=== PATIENT | male | born 1950 | race Caucasian/White ===

== ENCOUNTER 2020-10-28 23:48 | Inpatient (IN) | payer MEDICARE, OTHER ==
[~2020-10-28] VITALS: Ht 175.3 cm; Wt 91.9 kg
[2020-10-29] MEDS ORDERED: MAG HYDROX/AL HYDROX/SIMETH 30 ML ORAL.SUSP PO PRN (00:30)
[2020-10-29] MEDS ORDERED: METHYL SALICYLATE/MENTHOL TOPICAL OINTMENT 57GM TUBE. TP PRN (00:30)
[2020-10-29] MEDS ORDERED: ACETAMINOPHEN 325 MG TABLET PO PRN (00:30)
[2020-10-29 00:32] VITALS: BP 146/98
[2020-10-29] MEDS ORDERED: ETOD400T PO (02:08)
[2020-10-29] MEDS ORDERED: SIMV20TA18 PO (02:08)
[2020-10-29] MEDS ORDERED: CARB15DR72 EACH EAR (02:08)
[2020-10-29] MEDS ORDERED: BUPR300T92 PO (02:08)
[2020-10-29] MEDS ORDERED: DIVA500T17 PO (02:08)
[2020-10-29] MEDS ORDERED: LISI-334 PO (02:08)
[2020-10-29] MEDS ORDERED: FINA5TAB4 PO (02:08)
[2020-10-29] MEDS ORDERED: OLAN15TA9 PO (02:08)
[2020-10-29] MEDS ORDERED: RISP3TAB56 PO (02:08)
[2020-10-29] MEDS ORDERED: TRAZ-125 PO (02:08)
[2020-10-29] MEDS ORDERED: NICO4GUM42 BC (02:08)
[2020-10-29] MEDS ORDERED: CARV6.2541 PO (02:08)
[2020-10-29] MEDS ORDERED: CALC-157 PO (02:08)
[2020-10-29] MEDS ORDERED: ASPI-889 PO (02:08)
[2020-10-29] MEDS ORDERED: FAMO20TA5 PO (02:08)
[2020-10-29] MEDS ORDERED: LEVO25TA4 PO (02:08)
[2020-10-29] MEDS ORDERED: TIZA4TAB2 PO (02:08)
[2020-10-29] MEDS ORDERED: LACT10SO PO (02:08)
[2020-10-29] MEDS ORDERED: OXYB10TA7 PO (02:08)
[2020-10-29] MEDS ORDERED: tiZANidine 4 MG TABLET. PO PRN (02:15)
[2020-10-29] MEDS: LEVOTHYROXINE 25 MCG TABLET. PO SCH (06:13)
[2020-10-29 06:37] VITALS: BP 119/83
[2020-10-29 07:08] LABS: BASO % 1 % (0-3); EOS # 0.2 x10^3/uL (0.0-0.7); EOS % 2 % (0-3); HEMATOCRIT 38.1 % (39.0-53.0); HEMOGLOBIN 12.8 g/dL (13.0-17.5); LYMPH # 3.6 x10^3/uL (1.0-4.8); LYMPH % 44 % (24-48); MEAN CORPUSCULAR HEMOGLOBIN 33 pg (25-35); MEAN CORPUSCULAR HGB CONC 34 g/dL (31-37); MEAN CORPUSCULAR VOLUME 99 fL (79-100); MONO # 0.9 x10^3/uL (0.0-1.1); MONO % 11 % (0-9); NEUT # 3.5 x10^3uL (1.8-7.7); NEUT % 43 % (31-73); PLATELET COUNT 123 x10^3/uL (140-400); RED BLOOD COUNT 3.84 x10^6/uL (4.30-5.70); RED CELL DISTRIBUTION WIDTH 14.9 % (11.5-14.5); WHITE BLOOD COUNT 8.1 x10^3/uL (4.0-11.0)
[2020-10-29 07:27] LABS: ALBUMIN/GLOBULIN RATIO 0.9 (1.0-1.7); CALCIUM 8.6 mg/dL (8.5-10.1); CREATININE 1.1 mg/dL (0.7-1.3); GFR 65.8; MAGNESIUM 1.9 mg/dL (1.8-2.4); POTASSIUM 3.5 mmol/L (3.5-5.1); TOTAL BILIRUBIN 0.4 mg/dL (0.2-1.0); TOTAL PROTEIN 6.2 g/dL (6.4-8.2)
[2020-10-29] MEDS: CARBAMIDE PEROXIDE 6.5% OTIC SOLUTION 15ML BOTTLE. AU SCH (09:00)
[2020-10-29] MEDS: ASPIRIN ENTERIC COATED 81 MG TABLET.DR. PO SCH (09:00)
[2020-10-29] MEDS: FAMOTIDINE 20 MG TABLET PO SCH ×2 (09:00→20:01)
[2020-10-29] MEDS ORDERED: NICOTINE 7MG PATCH. TD SCH (09:00)
[2020-10-29] MEDS: DICLOFENAC SODIUM 25 MG TABLET.DR PO SCH ×2 (09:00→20:08)
[2020-10-29] MEDS: LACTULOSE 20 GM/30 ML SOLUTION. PO SCH ×2 (09:47→20:00)
[2020-10-29] MEDS: CARVEDILOL 6.25 MG TABLET PO SCH ×2 (09:48→17:00)
[2020-10-29] MEDS: buPROPion XL 300 MG TAB.ER.24H. PO SCH (09:48)
[2020-10-29] MEDS: FINASTERIDE 5 MG TABLET. PO SCH (09:48)
[2020-10-29] MEDS: OXYBUTYNIN CHLORIDE 5 MG TABLET PO SCH ×2 (09:48→20:01)
[2020-10-29] MEDS: CALCIUM CARB/VIT D3 500/200 TABLET PO SCH (09:49)
[2020-10-29] MEDS: LISINOPRIL 20 MG TABLET PO SCH (09:50)
[2020-10-29 13:18] LABS: THYROID STIM HORMONE (TSH) 3.758 uIU/mL (0.358-3.740)
[2020-10-29 15:42] VITALS: BP 132/83
[2020-10-29] MEDS: NICOTINE POLACRILEX GUM 2 MG GUM. BC PRN (16:01)
--- NOTE | 2020-10-29 16:44 | TX PLAN ---
Interdisciplinary Tx Plan Admission Information Oct 28, 2020 at 23:49 Legal Status (on Admission): Voluntary DPOA/Guardian Name: Irving Posada-Pt is a self sign Contact Other Contact Name: Irving Posada-Self sign Other Contact Verified Code Status: Full Code Allergies: Coded Allergies: chlorpromazine (Verified Allergy, Unknown, 10/29/20) divalproex sodium (Verified Adverse Reaction, Unknown, weight gain, 10/29/20) lithium (Verified Adverse Reaction, Unknown, diarrhea , 10/29/20) risperidone (Verified Adverse Reaction, Unknown, tremors, 10/29/20) Diagnoses Primary Diagnosis: Schizoaffective Disorder, Acute Exacerbation Reasons for Admission: Sig. Change Sleep, Confusion/Disoriented, Other Problem in Patient's Words: Per pt,"I was told that I was showing some odd behaviors and had put things on my neighbors porch. I, also, don't sleep well." Additional Admission Comments: Per intake record pt was demonstrating behaviors of confusion. He took household items from his apartment and sat them on his neighbors front porch. Another concern was that he took two day worth of his medication. Also, per intake, pt has been showing a flat affect. [facility] pt seems to struggle every other year around September. Problems Active Problems: Sleep, medication regimen Inactive Problems: Confusion Pt Strengths/Limitations Ability for [place]: Good Cognitive Functioning/Ability: Good Financial Resources: Good Insight/Judgement: Fair Intellectual Ability: Good Physical Health: Fair Social Skills: Good Stability in Family: Poor Stability in School/Work: Good Verbal Skills: Good Discharge Criteria Discharge Criteria: Able meet basic life need, Able to meet health needs, Adequate arrangements @DC, Adequate self-care, Verbal commit med comply, Improved behavior Other Discharge Comments: Pt to follow up with [place] PCP, psychiatrist, and SW upon d/c. Preliminary Discharge Plan Preliminary DC Plan: Current Living Arrange. Special Precautions Special Precautions: Other Fall Risk: Moderate Initial D/C Plan Pt to follow-up with his PCP, psychiatrist, and social group worker through the [place] upon discharge. Identified Discharge Needs: None Currently Utilized Resources Currently Utilized Resources/P: PCP, Psychiatrist, and [phone] Identified Problems/Hx/Goals Objectives/Short-Term Goals Short Term Goals: Control abnormal behavior, Medication Stabilization, Monitor Med Effects, Promote Coping Skill Short Term Goals in Patient's: "To get help with sleep and adjust medications." Interventions/Frequency Staff Interventions/Frequency&: Psychiatry to assess pt three times per week for medication management. Nursing to assess behaviors, monitor medications, and complete 15 minute checks daily. Social work to see pt at least twice weekly to aid in return home. Activities to encourage pt to participate in group activities daily. 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 Education: Pt graduated high school from [employer]. Community Follow-up PCP, psychiatrist, and SW through [place] Treatment Plan Explained Patient/Make Up Operator had this treatment plan explained to him/her as indicated by the signature below and has been given the opportunity to ask questions and make suggestions: Date: Patient/Make Up Operator Signature: SMOOTH RASHEED Oct 29, 2020 16:44
[2020-10-29] MEDS: traZODone 100 MG TABLET. PO SCH (20:04)
[2020-10-29] MEDS: SIMVASTATIN 20 MG TABLET PO SCH (20:05)
[2020-10-29] MEDS: DIVALPROEX ER 500 MG TAB.ER.24H PO SCH (20:05)
[2020-10-29 20:09] LABS: THYROXINE 5.9 ug/dL (4.5-12.0)
--- NOTE | 2020-10-29 20:55 | PDOC ---
Exam Note: Zackary Note: Please also refer to the separate dictated note~for this date of service dictated separately.~Patient seen individually. Discussed the patient with Nursing staff reviewed the chart.~Reviewed interim history and current functioning. Reviewed vital signs,~Labs/ Radiology~and current medications noted below. Continue current treatment with the changes noted in the dictated addendum note Assessment: Vital Signs/I&O: Vital Signs Date Time Temp Pulse Resp B/P (MAP) Pulse Ox O2 Delivery O2 Flow Rate FiO2 10/29/20 17:00 72 132/83 10/29/20 15:42 97.8 18 96 Room Air Labs: Laboratory Tests Test 10/29/20 06:47 10/29/20 07:46 White Blood Count 8.1 x10^3/uL (4.0-11.0) Red Blood Count 3.84 x10^6/uL (4.30-5.70) L Hemoglobin 12.8 g/dL (13.0-17.5) L Hematocrit 38.1 % (39.0-53.0) L Mean Corpuscular Volume 99 fL (79-100) Mean Corpuscular Hemoglobin 33 pg (25-35) Mean Corpuscular Hemoglobin Concent 34 g/dL (31-37) Red Cell Distribution Width 14.9 % (11.5-14.5) H Platelet Count 123 x10^3/uL (140-400) L Neutrophils (%) (Auto) 43 % (31-73) Lymphocytes (%) (Auto) 44 % (24-48) Monocytes (%) (Auto) 11 % (0-9) H Eosinophils (%) (Auto) 2 % (0-3) Basophils (%) (Auto) 1 % (0-3) Neutrophils # (Auto) 3.5 x10^3uL (1.8-7.7) Lymphocytes # (Auto) 3.6 x10^3/uL (1.0-4.8) Monocytes # (Auto) 0.9 x10^3/uL (0.0-1.1) Eosinophils # (Auto) 0.2 x10^3/uL (0.0-0.7) Basophils # (Auto) 0.0 x10^3/uL (0.0-0.2) D-Dimer (Laura) 0.84 mg/L (0.00-0.50) H Sodium Level 142 mmol/L (136-145) Potassium Level 3.5 mmol/L (3.5-5.1) Chloride Level 106 mmol/L (98-107) Carbon Dioxide Level 29 mmol/L (21-32) Anion Gap 7 (6-14) Blood Urea Nitrogen 19 mg/dL (8-26) Creatinine 1.1 mg/dL (0.7-1.3) Estimated GFR (Cockcroft-Gault) 65.8 BUN/Creatinine Ratio 17 (6-20) Glucose Level 86 mg/dL (70-99) Calcium Level 8.6 mg/dL (8.5-10.1) Magnesium Level 1.9 mg/dL (1.8-2.4) Iron Level 46 ug/dL (65-175) L Total Iron Binding Capacity 225 ug/dL (250-450) L Iron Saturation 20 % (15-34) Total Bilirubin 0.4 mg/dL (0.2-1.0) Aspartate Amino Transferase (AST) 17 U/L (15-37) Alanine Aminotransferase (ALT) 18 U/L (16-63) Alkaline Phosphatase 40 U/L (46-116) L Total Protein 6.2 g/dL (6.4-8.2) L Albumin 3.0 g/dL (3.4-5.0) L Albumin/Globulin Ratio 0.9 (1.0-1.7) L Triglycerides Level 126 mg/dL (0-150) Cholesterol Level 152 mg/dL (0-200) LDL Cholesterol, Calculated 77 mg/dL (0-100) VLDL Cholesterol, Calculated 25 mg/dL (0-40) Non-HDL Cholesterol Calculated 102 mg/dL (0-129) HDL Cholesterol 50 mg/dL (40-60) Cholesterol/HDL Ratio 3.0 Thyroid Stimulating Hormone (TSH) 3.758 uIU/mL (0.358-3.740) Thyroxine (T4) 5.9 ug/dL (4.5-12.0) Total Triiodothyronine (TT3) 103 ng/dL (71-180) Glucose (Fingerstick) 104 mg/dL (70-99) H Current Medications: Meds: Current Medications Medications (Trade) Dose Ordered Sig/Andie Route PRN Reason Start Time Stop Time Status Last Admin Dose Admin Bupropion HCl (Wellbutrin Xl) 300 mg DAILY PO 10/29/20 09:00 10/29/20 09:48 Trazodone HCl (Desyrel) 300 mg HS PO 10/29/20 21:00 10/29/20 20:04 Olanzapine (ZyPREXA) 30 mg QHS PO 10/29/20 21:00 10/29/20 20:05 Risperidone (RisperDAL) 3 mg HS PO 10/29/20 21:00 10/29/20 20:04 Aspirin (Aspirin Enteric Coated) 81 mg DAILY PO 10/29/20 09:00 10/29/20 09:00 Calcium/Vitamin D (Oscal D 500mg/ 200uts) 1 tab DAILY PO 10/29/20 09:00 10/29/20 09:49 Carvedilol (Coreg) 6.25 mg BIDWMEALS PO 10/29/20 08:00 10/29/20 17:00 Famotidine (Pepcid) 20 mg BID PO 10/29/20 09:00 10/29/20 20:01 Finasteride (Proscar) 5 mg DAILY PO 10/29/20 09:00 10/29/20 09:48 Levothyroxine Sodium (Synthroid) 25 mcg DAILY06 PO 10/29/20 06:00 10/29/20 06:13 Lisinopril (Prinivil) 20 mg DAILY PO 10/29/20 09:00 10/29/20 09:50 Simvastatin (Zocor) 20 mg HS PO 10/29/20 21:00 10/29/20 20:05 Diclofenac Sodium (Voltaren) 75 mg BID PO 10/29/20 09:00 10/29/20 20:08 Lactulose (Lactulose) 20 gm BID PO 10/29/20 09:00 10/29/20 20:00 Nicotine Polacrilex (Nicorette Gum) 2 mg PRN Q1HR PRN BC SMOKING CESSATION 10/29/20 02:30 10/29/20 16:01 Oxybutynin Chloride (Ditropan) 5 mg BID PO 10/29/20 09:00 10/29/20 20:01 Divalproex Sodium (Depakote Er) 1,000 mg HS PO 10/29/20 21:00 12/31/20 20:05 I have reviewed the current psychotropics carefully including drug interactions. Risk benefit ratio favors no change other than as noted in my dictated progress note. Diagnosis: Problems: (1) Schizoaffective disorder, chronic condition with acute exacerbation CLAUDIA ZAVALA MD Oct 29, 2020 20:55
[2020-10-29] MEDS ORDERED: DIVALPROEX ER 500 MG TAB.ER.24H PO SCH (21:00)
[2020-10-29] MEDS ORDERED: OLANZapine 10 MG TABLET PO SCH (21:00)
[2020-10-29] MEDS ORDERED: risperiDONE 1 MG TABLET. PO SCH (21:00)
[2020-10-29 21:18] LABS: CLARITY,URINE CLEAR; COLOR,URINE YELLOW
[2020-10-29 21:29] LABS: GLUCOSE,URINE NEG (NEG)
[2020-10-29 21:32] LABS: BILIRUBIN,URINE LARGE (NEG)
[2020-10-29 21:33] LABS: BACTERIA,URINE 0 /HPF (0-FEW); NITRITE,URINE NEG (NEG); SQUAMOUS EPITHELIAL CELL,UR OCC /LPF; UROBILINOGEN,URINE 0.2 mg/dL (0.2 mg/dL)
[2020-10-29 21:34] LABS: AMORPHOUS SEDIMENT,UR PRESENT /HPF
[2020-10-29 23:10] LABS: HEMOGLOBIN A1C 5.5 % (4.8-5.6)
--- NOTE | 2020-10-30 00:08 | HP ---
ADMIT DATE: 10/29/2020 PSYCHIATRIC ADMISSION HISTORY AND EVALUATION This note covers elements not covered in my initial note on 10/29/2020. IDENTIFYING DATA: The patient is a 70-year-old male referred to us from the Emergency Room at [facility] after we were called directly by the ER physician and thereafter by the psychiatrist who evaluated the patient in the Emergency Room. The patient has a diagnosis of bipolar disorder versus schizoaffective disorder, bipolar type. He has been living at home by himself, getting more confused, paranoid, psychotic recently. Apparently took two days' worth of his medications altogether at one time. He was confused and was presented 3 hours early for his office appointment at the [facility]. Staff are concerned about his safety. He reportedly had odd behaviors and a flat affect. He reportedly took his household goods from his apartment and put them on his neighbor's front porch oblivious of what he was doing unsure why he did it and confused about the whole situation. Given the fact that he lives alone and has little psychosocial support in his living environment, safety was deemed to be a determining factor getting him to present to the Emergency Room and then referred to us for inpatient psychiatric stabilization. CHIEF COMPLAINT: "I am okay now. Yes, I would like my medications checked. I see the lady psychiatrist at the [facility] Dr. Tamayo. HISTORY OF PRESENT ILLNESS: The patient states he was first diagnosed with bipolar disorder at the age of 16. He has had periods of elation, racing thoughts, psychotic symptoms, alternating with being depressed. This has been compounded by significant psychoactive drug use in the past and he currently continues to use marijuana. He has had sleep and appetite changes. No active suicidal or homicidal ideation. He remains intermittently psychotic. PAST PSYCHIATRIC HISTORY: As above. The patient states he believes he was on Abilify in the past, but unable to remember details psychosocial and psychiatric medication history. MEDICAL HISTORY: Hyperlipidemia, chronic constipation, metatarsal pain, hypothyroidism, polyarthralgia, osteoarthritis, abnormal gait, frequent falls, hypogonadism, hypertension, diabetes mellitus, GERD, CHF, coronary artery disease, chronic renal impairment, acute renal failure, hypotension, tremor, BPH, COPD, hearing loss, tinnitus, history of occlusion cerebral artery, cataract, hyperammonemia, tobacco use, marijuana usage current. ACCU-CHEKS: Daily until A1c comes back, not on any insulin or meds. DIET: Diabetic, takes medications whole, ambulates up ad ken with walker. UA negative at the [facility]. CURRENT PSYCHOTROPICS: Wellbutrin 300 mg daily for smoking cessation, Depakote ER 1000 mg at bedtime, Zyprexa 30 mg at bedtime, Risperdal 3 mg at bedtime, trazodone 100 mg at bedtime, Zyprexa was initiated p.r.n. 2.5 mg q. 2 hours p.r.n. psychosis, agitation, max 10 mg in 24 hours. FAMILY HISTORY: Noncontributory. SOCIAL HISTORY: The patient lives alone, [facility] Substance use noted above. REVIEW OF SYSTEMS: No CV, , pulmonary, eye, ENT system symptoms on review. MENTAL STATUS EXAMINATION: Reasonably oriented. Speech coherent, abstraction fair, computation impaired, language function intact, attention span short. He is somewhat paranoid, but less so than at the time of initial admission. No active suicidal or homicidal ideation. LABORATORY DATA: Reviewed. IMPRESSION: Bipolar 1 disorder, mixed with psychotic features versus schizoaffective disorder, bipolar type; anxiety disorder, unspecified; past history of polysubstance abuse, current THC abuse, impulse control disorder. Rest diagnoses as above. PLAN: Admit to Geropsychiatry Unit at [facility]. I will see the patient daily individually from a psychiatric standpoint. Medical followup with Dr. Nair/Dr Salinas. We will get his past psychiatric records from the [facility]. Check a valproic acid level. Continue with current psychotropics. We will plan to simplify his atypical antipsychotics and avoid the use of two atypicals, olanzapine and Risperdal in combination. We will make further adjustments as clinically indicated. Estimated length of stay 10-12 days. DISPOSITION: Plans back home with outpatient followup at the [facility] when stable. CLAUDIA ZAVALA MD DR: JAC/emelia JOB#: [id number] / [id number]
--- NOTE | 2020-10-30 01:15 | CONS ---
DATE OF CONSULTATION: 10/29/2020 REASON FOR CONSULTATION: Medical management. HISTORY OF PRESENT ILLNESS: The patient is a 70-year-old male patient who apparently was evaluated at the [facility] Emergency Room and from there he was admitted to [facility] as the [place] photofinishing laboratory worker is concerned for patient's safety and odd behavior. He apparently seemed to be more confused, took household items from his apartment and sat them in neighbor's porch. There is also concern that he is not taking his medication correctly. He has a flat affect and therefore, he was admitted to [facility] for inpatient psychiatric stabilization as apparently has failed outside psychiatric intervention by his psychiatrist. PAST MEDICAL HISTORY: Significant for hypertension, hyperlipidemia, type 2 diabetes, gastroesophageal reflux disease, congestive heart failure, tinnitus and impaired hearing, chronic constipation, hypothyroidism, osteoarthritis. PAST SURGICAL HISTORY: Three hernia repairs and bilateral cataract extraction. FAMILY HISTORY: Noncontributory. SOCIAL HISTORY: [facility]. ALLERGIES: HE IS ALLERGIC TO CHLORPROMAZINE, DIVALPROEX SODIUM, LITHIUM AND RISPERIDONE. MEDICATIONS: He is currently on following medications: He is on tizanidine 2 mg 3 times a day as needed, nicotine gum 4 mg every hour as needed, simvastatin 20 mg at bedtime, carvedilol 6.25 mg twice a day with meals, lisinopril 20 mg daily, aspirin 81 mg once a day, etodolac 400 mg twice a day, divalproex sodium 500 mg extended release at bedtime. He is on Wellbutrin 300 mg extended release daily, trazodone 300 mg at bedtime, olanzapine 30 mg at bedtime, risperidone 3 mg at bedtime. He is on lactulose 15 mL, he takes 30 mL twice a day, calcium carbonate with vitamin D one tablet daily. He is on Carbamide peroxide 2 drops to both ears daily. He is on famotidine 20 mg twice a day, levothyroxine sodium 25 mcg daily, oxybutynin chloride 10 mg once a day, finasteride 5 mg daily. REVIEW OF SYSTEMS: As per history of present illness. PHYSICAL EXAMINATION: GENERAL: When I examined him this afternoon, he was sitting at the edge of bed, eating his supper comfortably, in no apparent distress. When I examined him, he looked well with no pallor, jaundice, cyanosis or thyromegaly. No jugular venous distention. No lower limb edema. VITAL SIGNS: His heart rate was 72, blood pressure was 132/83, temperature 97.8, respiratory rate was 18 and oxygen saturation was 96%. HEAD, EYES, EARS, NOSE AND THROAT: Showed normocephalic, atraumatic. NECK: Supple. HEART: Showed normal first and second heart sounds. No gallop, rub or murmur. CHEST: Clear to auscultation. No crepitation or rhonchi. ABDOMEN: Distended, soft, nontender. NEUROLOGIC: He is awake, alert, responding appropriately. All cranial nerves intact. EXTREMITIES: He moves extremities without difficulty, ambulates with a walker. LABORATORY DATA: Showed a white cell count of 8100, hemoglobin 12.8, hematocrit 38, MCV 99 and platelet count of 123,000 with normal manual differential. His chemistry showed a serum sodium 142, potassium 3.5, chloride 106, bicarbonate 29, anion gap of 7, BUN 19, creatinine 1.1, estimated GFR was 66 mL per minute. His glucose was 86, calcium was 8.6, magnesium was 1.9. Serum iron 46, TIBC was 225 and iron saturation was 20. Total bilirubin, AST and ALT are normal as well as alkaline phosphatase. Her total protein was 6.2, albumin 3. Serum triglycerides 126, total cholesterol 152, LDL was 77, VLDL was 25, HDL was 50 and the ratio was 3. TSH was 3.758. Her D-dimer was 0.84 mg/dL. ASSESSMENT AND PLAN: In summary, this is a 70-year-old male patient, a resident at [facility] who [facility] on account of concern by the [place] transition social worker about his safety and odd behavior and increased confusion, apparently took household items from his apartment and sat them on neighbor's porch concerned that he is not taking his medication correctly. He has flat affect, apparently and the plan is to basically evaluating his numerous psych medication apparently has failed outpatient psychiatric evaluation by his psychiatrist, Dr. Coley. Medically, he has numerous medical problems including hypertension, hyperlipidemia, type 2 diabetes mellitus, gastroesophageal reflux disease, hypertension and in bed and sensorineural deafness. All in all, medically he seems to be mostly stable. His vital signs are stable. His blood pressure is well controlled. I reviewed all his labs and he has a mild thrombocytopenia with platelet count of 123,000. His chemistry is mostly well within normal range except that her TSH is slightly elevated at 3.758, Synthroid 25 mcg and I will check a T3, T4, free T4 to make sure that his thyroid functions are normal. Other than that, he seems to be medically stable. Thank you, Dr. Harrison, for allowing me to participate in the care of this patient. CHARMAINE WATERS MD DR: JESUS MANUEL/emelia JOB#: [id number] / [id number]
[2020-10-30] MEDS: LEVOTHYROXINE 25 MCG TABLET. PO SCH (06:17)
[2020-10-30 06:29] VITALS: BP 148/88
[2020-10-30] MEDS: CALCIUM CARB/VIT D3 500/200 TABLET PO SCH (08:56)
[2020-10-30] MEDS: FINASTERIDE 5 MG TABLET. PO SCH (08:56)
[2020-10-30] MEDS: DICLOFENAC SODIUM 25 MG TABLET.DR PO SCH ×2 (08:56→20:03)
[2020-10-30] MEDS: ASPIRIN ENTERIC COATED 81 MG TABLET.DR. PO SCH (08:56)
[2020-10-30] MEDS: buPROPion XL 300 MG TAB.ER.24H. PO SCH (08:56)
[2020-10-30] MEDS: OXYBUTYNIN CHLORIDE 5 MG TABLET PO SCH ×2 (08:56→20:04)
[2020-10-30] MEDS: FAMOTIDINE 20 MG TABLET PO SCH ×2 (08:56→20:03)
[2020-10-30] MEDS: CARVEDILOL 6.25 MG TABLET PO SCH ×2 (08:56→17:46)
[2020-10-30] MEDS: LACTULOSE 20 GM/30 ML SOLUTION. PO SCH ×2 (08:57→20:02)
[2020-10-30] MEDS: LISINOPRIL 20 MG TABLET PO SCH (08:57)
[2020-10-30] MEDS: CARBAMIDE PEROXIDE 6.5% OTIC SOLUTION 15ML BOTTLE. AU SCH (09:00)
[2020-10-30 15:03] VITALS: BP 128/87
[2020-10-30] MEDS: OLANZapine 10 MG TABLET PO SCH (20:02)
[2020-10-30] MEDS: traZODone 100 MG TABLET. PO SCH (20:02)
[2020-10-30] MEDS: SIMVASTATIN 20 MG TABLET PO SCH (20:02)
[2020-10-30] MEDS: DIVALPROEX ER 500 MG TAB.ER.24H PO SCH (20:03)
[2020-10-30] MEDS: risperiDONE 1 MG TABLET. PO SCH (20:04)
--- NOTE | 2020-10-30 21:33 | PDOC ---
Exam Note: Zackary Note: This note is a late entry for 10/28/2020 covers elements not covered in my initial note. Please also refer to the separate dictated note~for this date of service dictated separately.~Patient seen individually. Discussed the patient with Nursing staff reviewed the chart.~Reviewed interim history and current funct ioning. Reviewed vital signs,~Labs/ Radiology~and current medications noted below. Continue current treatment with the changes noted in the dictated addendum note. Discussed the patient with Sheba Walker, on 2 different occasions and with Chloe DEAN, the nursing staff on a separate occasion. [facility] The patient has a long history of bipolar disorder versus schizoaffective disorder bipolar type. He lives alone on his own recently getting more psychotic, probably confused on his medications, have not taken two days of medications together by mistake. He has been having odd behaviors, has detailed on my intake evaluation and deemed dangerous to be at home needing his psychotropics assessed as an inpatient. The ER physician had called us and requesting inpatient psychiatric hospitalization and then patient was evaluated by the psychiatrist at the [facility] who called us as well recommending inpatient psychiatric stabilization. Assessment: Vital Signs/I&O: Vital Signs Date Time Temp Pulse Resp B/P (MAP) Pulse Ox O2 Delivery O2 Flow Rate FiO2 10/30/20 17:46 67 128/87 10/30/20 15:03 98.5 17 99 10/30/20 06:29 Room Air I & O 10/29/20 10/29/20 10/30/20 15:00 23:00 07:00 Intake Total 720 ml 100 ml Balance 720 ml 100 ml Labs: Laboratory Tests Test 10/30/20 06:59 10/30/20 07:46 Free Thyroxine 1.08 ng/dL (0.76-1.46) Glucose (Fingerstick) 105 mg/dL (70-99) H Current Medications: Meds: Laboratory Tests Test 10/30/20 06:59 10/30/20 07:46 Free Thyroxine 1.08 ng/dL Glucose (Fingerstick) 105 mg/dL Current Medications Medications (Trade) Dose Ordered Sig/Andie Route PRN Reason Start Time Stop Time Status Last Admin Dose Admin Acetaminophen (Tylenol) 650 mg PRN Q6HRS PRN PO MILD PAIN / TEMP > 100.3'F 10/29/20 00:30 Multi-Ingredient Ointment (Analgesic Tyler) 1 anabel PRN QID PRN TP MUSCLE PAIN 10/29/20 00:30 Al Hydroxide/Mg Hydroxide (Mylanta Plus Xs) 15 ml PRN AFTMEALHC PRN PO DYSPEPSIA 10/29/20 00:30 Magnesium Hydroxide (Milk Of Magnesia) 2,400 mg PRN QHS PRN PO CONSTIPATION 10/29/20 00:30 Nicotine (Nicoderm Cq 7mg Patch) 1 patch DAILY TD 10/29/20 09:00 10/29/20 10:16 DC Bupropion HCl (Wellbutrin Xl) 300 mg DAILY PO 10/29/20 09:00 10/30/20 08:56 Divalproex Sodium (Depakote Er) 500 mg HS PO 10/29/20 21:00 10/29/20 02:41 DC Trazodone HCl (Desyrel) 300 mg HS PO 10/29/20 21:00 10/30/20 20:02 Olanzapine (ZyPREXA) 30 mg QHS PO 10/29/20 21:00 10/30/20 18:00 DC 10/29/20 20:05 Risperidone (RisperDAL) 3 mg HS PO 10/29/20 21:00 10/30/20 18:00 DC 10/29/20 20:04 Aspirin (Aspirin Enteric Coated) 81 mg DAILY PO 10/29/20 09:00 10/30/20 08:56 Calcium/Vitamin D (Oscal D 500mg/ 200uts) 1 tab DAILY PO 10/29/20 09:00 10/30/20 08:56 Carbamide Peroxide (Debrox) 2 drop DAILY AU 10/29/20 09:00 10/30/20 09:00 Carvedilol (Coreg) 6.25 mg BIDWMEALS PO 10/29/20 08:00 10/30/20 17:46 Famotidine (Pepcid) 20 mg BID PO 10/29/20 09:00 10/30/20 20:03 Finasteride (Proscar) 5 mg DAILY PO 10/29/20 09:00 10/30/20 08:56 Levothyroxine Sodium (Synthroid) 25 mcg DAILY06 PO 10/29/20 06:00 10/30/20 06:17 Lisinopril (Prinivil) 20 mg DAILY PO 10/29/20 09:00 10/30/20 08:57 Simvastatin (Zocor) 20 mg HS PO 10/29/20 21:00 10/30/20 20:02 Tizanidine HCl (Zanaflex) 2 mg PRN TID PRN PO MUSCLE SPASTICITY 10/29/20 02:15 Diclofenac Sodium (Voltaren) 75 mg BID PO 10/29/20 09:00 10/30/20 20:03 Lactulose (Lactulose) 20 gm BID PO 10/29/20 09:00 10/30/20 20:02 Nicotine Polacrilex (Nicorette Gum) 2 mg PRN Q1HR PRN BC SMOKING CESSATION 10/29/20 02:30 10/29/20 16:01 Oxybutynin Chloride (Ditropan) 5 mg BID PO 10/29/20 09:00 10/30/20 20:04 Olanzapine (ZyPREXA ZYDIS) 2.5 mg PRN Q2HR PRN PO PSYCHOSIS 10/29/20 02:45 Divalproex Sodium (Depakote Er) 1,000 mg HS PO 10/29/20 21:00 10/30/20 20:03 Olanzapine (ZyPREXA) 20 mg QHS PO 10/30/20 21:00 10/30/20 20:02 Risperidone (RisperDAL) 3.5 mg HS PO 10/30/20 21:00 10/30/20 20:04 Current Medications Medications (Trade) Dose Ordered Sig/Andie Route PRN Reason Start Time Stop Time Status Last Admin Dose Admin Olanzapine (ZyPREXA) 20 mg QHS PO 10/30/20 21:00 10/30/20 20:02 Risperidone (RisperDAL) 3.5 mg HS PO 10/30/20 21:00 10/30/20 20:04 I have reviewed the current psychotropics carefully including drug interactions. Risk benefit ratio favors no change other than as noted in my dictated progress note. Diagnosis: Problems: (1) Bipolar disorder, current episode mixed, severe, with psychotic features (2) Schizoaffective disorder, mixed type (3) Schizoaffective disorder, chronic condition with acute exacerbation (4) Anxiety disorder, unspecified (5) Impulse control disorder (6) Polysubstance abuse LUCAS,MAN M MD Oct 30, 2020 21:33
--- NOTE | 2020-10-30 21:57 | PDOC ---
Exam Note: Zackary Note: Please also refer to the separate dictated note~for this date of service dictated separately.~Patient seen individually. Discussed the patient with Nursing staff reviewed the chart.~Reviewed interim history and current functioning. Reviewed vital signs,~Labs/ Radiology~and current medications noted below. Continue current treatment with the changes noted in the dictated addendum note Assessment: Vital Signs/I&O: Vital Signs Date Time Temp Pulse Resp B/P (MAP) Pulse Ox O2 Delivery O2 Flow Rate FiO2 10/30/20 17:46 67 128/87 10/30/20 15:03 98.5 17 99 10/30/20 06:29 Room Air I & O 10/29/20 10/29/20 10/30/20 15:00 23:00 07:00 Intake Total 720 ml 100 ml Balance 720 ml 100 ml Labs: Laboratory Tests Test 10/30/20 06:59 10/30/20 07:46 Free Thyroxine 1.08 ng/dL (0.76-1.46) Glucose (Fingerstick) 105 mg/dL (70-99) H Current Medications: Meds: Current Medications Medications (Trade) Dose Ordered Sig/Andie Route PRN Reason Start Time Stop Time Status Last Admin Dose Admin Olanzapine (ZyPREXA) 20 mg QHS PO 10/30/20 21:00 10/30/20 20:02 Risperidone (RisperDAL) 3.5 mg HS PO 10/30/20 21:00 10/30/20 20:04 I have reviewed the current psychotropics carefully including drug interactions. Risk benefit ratio favors no change other than as noted in my dictated progress note. Diagnosis: Problems: (1) Schizoaffective disorder, chronic condition with acute exacerbation (2) Schizoaffective disorder, mixed type (3) Bipolar disorder, current episode mixed, severe, with psychotic features (4) Impulse control disorder (5) Anxiety disorder, unspecified (6) Polysubstance abuse CLAUDIA ZAVALA MD Oct 30, 2020 21:57
[2020-10-30 23:09] LABS: THYROXINE 5.8 ug/dL (4.5-12.0)
[2020-10-31] MEDS: LEVOTHYROXINE 25 MCG TABLET. PO SCH (05:25)
[2020-10-31 05:58] VITALS: BP 134/87
[2020-10-31] MEDS: buPROPion XL 300 MG TAB.ER.24H. PO SCH (08:36)
[2020-10-31] MEDS: LISINOPRIL 20 MG TABLET PO SCH (08:36)
[2020-10-31] MEDS: FINASTERIDE 5 MG TABLET. PO SCH (08:37)
[2020-10-31] MEDS: CARVEDILOL 6.25 MG TABLET PO SCH ×2 (08:37→17:40)
[2020-10-31] MEDS: FAMOTIDINE 20 MG TABLET PO SCH ×2 (08:37→19:36)
[2020-10-31] MEDS: CALCIUM CARB/VIT D3 500/200 TABLET PO SCH (08:37)
[2020-10-31] MEDS: OXYBUTYNIN CHLORIDE 5 MG TABLET PO SCH ×2 (08:37→19:38)
[2020-10-31] MEDS: LACTULOSE 20 GM/30 ML SOLUTION. PO SCH ×2 (08:37→19:35)
[2020-10-31] MEDS: CARBAMIDE PEROXIDE 6.5% OTIC SOLUTION 15ML BOTTLE. AU SCH (08:38)
[2020-10-31] MEDS: DICLOFENAC SODIUM 25 MG TABLET.DR PO SCH ×2 (08:38→19:40)
[2020-10-31] MEDS: ASPIRIN ENTERIC COATED 81 MG TABLET.DR. PO SCH (08:39)
[2020-10-31 09:02] LABS: VAL ACID 55 mcg/mL (50-100)
[2020-10-31 15:00] VITALS: BP 140/90
--- NOTE | 2020-10-31 17:55 | RAD ---
Exam: Sacrum coccyx 2 views INDICATION: Fall 2 days TECHNIQUE: Frontal and lateral views of the sacrum and coccyx Comparisons: None FINDINGS: Bone mineralization is normal. No acute or healed fractures. Large amount of stool is noted at the re ctum. Joint spaces are well-maintained. IMPRESSION: No displaced fracture identified. Large amount stool at the rectum. Electronically signed by: Marisol Paredes MD (10/31/2020 5:52 PM) [facility]
--- NOTE | 2020-10-31 17:59 | RAD ---
EXAM: Right ribs, 3 views. HISTORY: Fall. COMPARISON: None. FINDINGS: 3 views of the right ribs are obtained. No displaced fracture is seen. There is no infiltra te or pleural effusion. The visualized heart is normal in size. There is a mild suspected chronic sup erior endplate depression at the mid thoracic level. IMPRESSION: No acute osseous finding. Electronically signed by: Yi Branham MD (10/31/2020 5:56 PM) [facility]
[2020-10-31] MEDS: SIMVASTATIN 20 MG TABLET PO SCH (19:36)
[2020-10-31] MEDS: risperiDONE 1 MG TABLET. PO SCH (19:36)
[2020-10-31] MEDS: traZODone 100 MG TABLET. PO SCH (19:37)
[2020-10-31] MEDS: DIVALPROEX ER 500 MG TAB.ER.24H PO SCH (19:38)
[2020-10-31] MEDS: OLANZapine 10 MG TABLET PO SCH (19:38)
--- NOTE | 2020-10-31 21:10 | PDOC ---
Exam Note: Zackary Note: Please also refer to the separate dictated note~for this date of service dictated separately.~Patient seen individually. Discussed the patient with Nursing staff reviewed the chart.~Reviewed interim history and current functioning. Reviewed vital signs,~Labs/ Radiology~and current medications noted below. Continue current treatment with the changes noted in the dictated addendum note Assessment: Vital Signs/I&O: Vital Signs Date Time Temp Pulse Resp B/P (MAP) Pulse Ox O2 Delivery O2 Flow Rate FiO2 10/31/20 17:40 67 140/90 10/31/20 15:00 97.4 18 97 Room Air I & O 10/30/20 10/30/20 10/31/20 15:00 23:00 07:00 Intake Total 800 ml 360 ml Balance 800 ml 360 ml Labs: Laboratory Tests Test 10/31/20 08:15 Valproic Acid Level 55 mcg/mL (50-100) Valproic Acid Last Dose Date 10/30/2020 Valproic Acid Last Dose Time 2100 Current Medications: Meds: Laboratory Tests Test 10/31/20 08:15 Valproic Acid (Depakene) Level 55 mcg/mL Valproic Acid Last Dose Date 10/30/2020 Valproic Acid Last Dose Time 2100 Current Medications Medications (Trade) Dose Ordered Sig/Andie Route PRN Reason Start Time Stop Time Status Last Admin Dose Admin Acetaminophen (Tylenol) 650 mg PRN Q6HRS PRN PO MILD PAIN / TEMP > 100.3'F 10/29/20 00:30 Multi-Ingredient Ointment (Analgesic [place]) 1 anabel PRN QID PRN TP MUSCLE PAIN 10/29/20 00:30 Al Hydroxide/Mg Hydroxide (Mylanta Plus Xs) 15 ml PRN AFTMEALHC PRN PO DYSPEPSIA 10/29/20 00:30 Magnesium Hydroxide (Milk Of Magnesia) 2,400 mg PRN QHS PRN PO CONSTIPATION 10/29/20 00:30 Nicotine (Nicoderm Cq 7mg Patch) 1 patch DAILY TD 10/29/20 09:00 10/29/20 10:16 DC Bupropion HCl (Wellbutrin Xl) 300 mg DAILY PO 10/29/20 09:00 10/31/20 08:36 Divalproex Sodium (Depakote Er) 500 mg HS PO 10/29/20 21:00 10/29/20 02:41 DC Trazodone HCl (Desyrel) 300 mg HS PO 10/29/20 21:00 10/31/20 19:37 Olanzapine (ZyPREXA) 30 mg QHS PO 10/29/20 21:00 10/30/20 18:00 DC 10/29/20 20:05 Risperidone (RisperDAL) 3 mg HS PO 10/29/20 21:00 10/30/20 18:00 DC 10/29/20 20:04 Aspirin (Aspirin Enteric Coated) 81 mg DAILY PO 10/29/20 09:00 10/31/20 08:39 Calcium/Vitamin D (Oscal D 500mg/ 200uts) 1 tab DAILY PO 10/29/20 09:00 10/31/20 08:37 Carbamide Peroxide (Debrox) 2 drop DAILY AU 10/29/20 09:00 10/31/20 08:38 Carvedilol (Coreg) 6.25 mg BIDWMEALS PO 10/29/20 08:00 10/31/20 17:40 Famotidine (Pepcid) 20 mg BID PO 10/29/20 09:00 10/31/20 19:36 Finasteride (Proscar) 5 mg DAILY PO 10/29/20 09:00 10/31/20 08:37 Levothyroxine Sodium (Synthroid) 25 mcg DAILY06 PO 10/29/20 06:00 10/31/20 05:25 Lisinopril (Prinivil) 20 mg DAILY PO 10/29/20 09:00 10/31/20 08:36 Simvastatin (Zocor) 20 mg HS PO 10/29/20 21:00 10/31/20 19:36 Tizanidine HCl (Zanaflex) 2 mg PRN TID PRN PO MUSCLE SPASTICITY 10/29/20 02:15 10/30/20 22:11 Diclofenac Sodium (Voltaren) 75 mg BID PO 10/29/20 09:00 10/31/20 19:40 Lactulose (Lactulose) 20 gm BID PO 10/29/20 09:00 10/31/20 19:35 Nicotine Polacrilex (Nicorette Gum) 2 mg PRN Q1HR PRN BC SMOKING CESSATION 10/29/20 02:30 10/29/20 16:01 Oxybutynin Chloride (Ditropan) 5 mg BID PO 10/29/20 09:00 10/31/20 19:38 Olanzapine (ZyPREXA ZYDIS) 2.5 mg PRN Q2HR PRN PO PSYCHOSIS 10/29/20 02:45 Divalproex Sodium (Depakote Er) 1,000 mg HS PO 10/29/20 21:00 10/31/20 19:38 Olanzapine (ZyPREXA) 20 mg QHS PO 10/30/20 21:00 10/31/20 19:38 Risperidone (RisperDAL) 3.5 mg HS PO 10/30/20 21:00 10/31/20 19:36 I have reviewed the current psychotropics carefully including drug interactions. Risk benefit ratio favors no change other than as noted in my dictated progress note. Diagnosis: Problems: (1) Schizoaffective disorder, chronic condition with acute exacerbation (2) Schizoaffective disorder, mixed type (3) Bipolar disorder, current episode mixed, severe, with psychotic features (4) Impulse control disorder (5) Anxiety disorder, unspecified (6) Polysubstance abuse CLAUDIA ZAVALA MD Oct 31, 2020 21:10
[2020-11-01] MEDS: LEVOTHYROXINE 25 MCG TABLET. PO SCH (05:04)
[2020-11-01 05:47] VITALS: BP 146/77
[2020-11-01] MEDS: buPROPion XL 300 MG TAB.ER.24H. PO SCH (07:40)
[2020-11-01] MEDS: CARVEDILOL 6.25 MG TABLET PO SCH ×2 (07:41→17:06)
[2020-11-01] MEDS: LISINOPRIL 20 MG TABLET PO SCH (07:41)
[2020-11-01] MEDS: ASPIRIN ENTERIC COATED 81 MG TABLET.DR. PO SCH (07:41)
[2020-11-01] MEDS: FINASTERIDE 5 MG TABLET. PO SCH (07:41)
[2020-11-01] MEDS: FAMOTIDINE 20 MG TABLET PO SCH ×2 (07:41→20:38)
[2020-11-01] MEDS: CALCIUM CARB/VIT D3 500/200 TABLET PO SCH (07:41)
[2020-11-01] MEDS: OXYBUTYNIN CHLORIDE 5 MG TABLET PO SCH ×2 (07:41→20:38)
[2020-11-01] MEDS: DICLOFENAC SODIUM 25 MG TABLET.DR PO SCH ×2 (07:42→20:38)
[2020-11-01] MEDS: LACTULOSE 20 GM/30 ML SOLUTION. PO SCH ×2 (07:42→20:39)
[2020-11-01] MEDS: CARBAMIDE PEROXIDE 6.5% OTIC SOLUTION 15ML BOTTLE. AU SCH (07:43)
--- NOTE | 2020-11-01 09:01 | PDOC ---
Exam Note: Zackary Note: This note is a late entry for 10/30/2020 covers elements not covered in my initial note. Subjective: The patient was reviewed on telehealth rounds in the evening of 10/30/2020 with Yana DEAN. Discussed with nursing staff, reviewed the chart. He slept 8-3/4 hours previous night. Overall the patient has been fairly appropriate on the unit, a little paranoid at times but redirectable. Review of Systems: Ambulation impaired in wheelchair. No CV, , pulmonary, eye, ENT system symptoms on review. Mental Status Exam: The patient is reasonably oriented to himself and situation. Speech has some latency, coherent. Abstraction is fair. Computation impaired. Language function is intact. Attention span is short. Mood and affect somewhat withdrawn but improved, less paranoid. Laboratory Data: Reviewed. Impression: Bipolar 1 disorder mixed with psychotic features. History of schizoaffective disorder bipolar type. Anxiety disorder unspecified. Impulse control disorder unspecified. Plan: The patient is on two atypical antipsychotics, Zyprexa 30 mg h.s. and Ri sperdal 3 mg h.s. We will try and simplify this regimen. Reduce Zyprexa to 20 mg h.s., increase Risperdal to 3.5 mg h.s. and gradually taper and stop the Zyprexa if possible. Maintain Wellbutrin, Depakote at current dosage. Valproic acid level to be checked on 10/31. Continue trazodone 300 mg h.s. Assessment: Vital Signs/I&O: Vital Signs Date Time Temp Pulse Resp B/P (MAP) Pulse Ox O2 Delivery O2 Flow Rate FiO2 11/01/20 07:41 67 146/77 11/01/20 05:47 97.5 16 98 10/31/20 15:00 Room Air I & O 10/31/20 10/31/20 11/01/20 14:59 22:59 06:59 Intake Total 600 ml 240 ml 240 ml Balance 600 ml 240 ml 240 ml Current Medications: Meds: Current Medications Medications (Trade) Dose Ordered Sig/Andie Route PRN Reason Start Time Stop Time Status Last Admin Dose Admin Acetaminophen (Tylenol) 650 mg PRN Q6HRS PRN PO MILD PAIN / TEMP > 100.3'F 10/29/20 00:30 Multi-Ingredient Ointment (Analgesic [place]) 1 anabel PRN QID PRN TP MUSCLE PAIN 10/29/20 00:30 Al Hydroxide/Mg Hydroxide (Mylanta Plus Xs) 15 ml PRN AFTMEALHC PRN PO DYSPEPSIA 10/29/20 00:30 Magnesium Hydroxide (Milk Of Magnesia) 2,400 mg PRN QHS PRN PO CONSTIPATION 10/29/20 00:30 Nicotine (Nicoderm Cq 7mg Patch) 1 patch DAILY TD 10/29/20 09:00 10/29/20 10:16 DC Bupropion HCl (Wellbutrin Xl) 300 mg DAILY PO 10/29/20 09:00 11/01/20 07:40 Divalproex Sodium (Depakote Er) 500 mg HS PO 10/29/20 21:00 10/29/20 02:41 DC Trazodone HCl (Desyrel) 300 mg HS PO 10/29/20 21:00 10/31/20 19:37 Olanzapine (ZyPREXA) 30 mg QHS PO 10/29/20 21:00 10/30/20 18:00 DC 10/29/20 20:05 Risperidone (RisperDAL) 3 mg HS PO 10/29/20 21:00 10/30/20 18:00 DC 10/29/20 20:04 Aspirin (Aspirin Enteric Coated) 81 mg DAILY PO 10/29/20 09:00 11/01/20 07:41 Calcium/Vitamin D (Oscal D 500mg/ 200uts) 1 tab DAILY PO 10/29/20 09:00 11/01/20 07:41 Carbamide Peroxide (Debrox) 2 drop DAILY AU 10/29/20 09:00 11/01/20 07:43 Carvedilol (Coreg) 6.25 mg BIDWMEALS PO 10/29/20 08:00 11/01/20 07:41 Famotidine (Pepcid) 20 mg BID PO 10/29/20 09:00 11/01/20 07:41 Finasteride (Proscar) 5 mg DAILY PO 10/29/20 09:00 11/01/20 07:41 Levothyroxine Sodium (Synthroid) 25 mcg DAILY06 PO 10/29/20 06:00 11/01/20 05:04 Lisinopril (Prinivil) 20 mg DAILY PO 10/29/20 09:00 11/01/20 07:41 Simvastatin (Zocor) 20 mg HS PO 10/29/20 21:00 10/31/20 19:36 Tizanidine HCl (Zanaflex) 2 mg PRN TID PRN PO MUSCLE SPASTICITY 10/29/20 02:15 10/30/20 22:11 Diclofenac Sodium (Voltaren) 75 mg BID PO 10/29/20 09:00 11/01/20 07:42 Lactulose (Lactulose) 20 gm BID PO 10/29/20 09:00 11/01/20 07:42 Nicotine Polacrilex (Nicorette Gum) 2 mg PRN Q1HR PRN BC SMOKING CESSATION 10/29/20 02:30 10/29/20 16:01 Oxybutynin Chloride (Ditropan) 5 mg BID PO 10/29/20 09:00 11/01/20 07:41 Olanzapine (ZyPREXA ZYDIS) 2.5 mg PRN Q2HR PRN PO PSYCHOSIS 10/29/20 02:45 Divalproex Sodium (Depakote Er) 1,000 mg HS PO 10/29/20 21:00 10/31/20 19:38 Olanzapine (ZyPREXA) 20 mg QHS PO 10/30/20 21:00 10/31/20 19:38 Risperidone (RisperDAL) 3.5 mg HS PO 10/30/20 21:00 10/31/20 19:36 I have reviewed the current psychotropics carefully including drug interactions. Risk benefit ratio favors no change other than as noted in my dictated progress note. Diagnosis: Problems: (1) Schizoaffective disorder, chronic condition with acute exacerbation (2) Schizoaffective disorder, mixed type (3) Bipolar disorder, current episode mixed, severe, with psychotic features (4) Impulse control disorder (5) Anxiety disorder, unspecified CLAUDIA ZAVALA MD Nov 01, 2020 09:01
--- NOTE | 2020-11-01 09:18 | PDOC ---
Exam Note: Zackary Note: This note is a late entry for 10/31/2020 covers elements not covered in my initial note. Subjective: The patient was reviewed on telehealth rounds in the evening of 10/31/2020 with Valerie DEAN. Discussed with nursing staff, reviewed the chart. He slept 8-1/2 hours previous night. The patient is being cooperative with the shower and medications. Reportedly he had a fall at home 2 days ago and was complaining of pain in his tailbone and hip. X-rays were done. Results are awaited. We will defer to Dr. Salinas. Valproic acid level is 55. We will repeat CBC, CMP, valproic acid level in 2 days. Review of Systems: Ambulation impaired in wheelchair. No CV, , pulmonary, eye, ENT system symptoms on review. Mental Status Exam: The patient is oriented reasonably. Speech is coherent. Abstraction is fair. Computation impaired. Language function is intact. Attention span is short. Mood and affect somewhat withdrawn, less paranoid. No suicidal or homicidal ideation. Laboratory Data: Reviewed. Impression: Bipolar 1 disorder mixed with psychotic features. History of schizoaffective disorder bipolar type. Anxiety disorder unspecified. Impulse control disorder unspecified. Plan: Continue psychotropics as mentioned. Zyprexa is at 20 mg h.s., Risperdal 3.5 mg h.s. Valproic acid level is therapeutic at 55. Depakote ER 1000 mg h.s., Wellbutrin 300 mg daily, trazodone 300 mg h.s. Adjust further as clinically indicated. Assessment: Vital Signs/I&O: Vital Signs Date Time Temp Pulse Resp B/P (MAP) Pulse Ox O2 Delivery O2 Flow Rate FiO2 11/01/20 07:41 67 146/77 11/01/20 05:47 97.5 16 98 10/31/20 15:00 Room Air I & O 10/31/20 10/31/20 11/01/20 15:00 23:00 07:00 Intake Total 600 ml 240 ml 240 ml Balance 600 ml 240 ml 240 ml Current Medications: Meds: Current Medications Medications (Trade) Dose Ordered Sig/Andie Route PRN Reason Start Time Stop Time Status Last Admin Dose Admin Acetaminophen (Tylenol) 650 mg PRN Q6HRS PRN PO MILD PAIN / TEMP > 100.3'F 10/29/20 00:30 Multi-Ingredient Ointment (Analgesic [place]) 1 anabel PRN QID PRN TP MUSCLE PAIN 10/29/20 00:30 Al Hydroxide/Mg Hydroxide (Mylanta Plus Xs) 15 ml PRN AFTMEALHC PRN PO DYSPEPSIA 10/29/20 00:30 Magnesium Hydroxide (Milk Of Magnesia) 2,400 mg PRN QHS PRN PO CONSTIPATION 10/29/20 00:30 Nicotine (Nicoderm Cq 7mg Patch) 1 patch DAILY TD 10/29/20 09:00 10/29/20 10:16 DC Bupropion HCl (Wellbutrin Xl) 300 mg DAILY PO 10/29/20 09:00 11/01/20 07:40 Divalproex Sodium (Depakote Er) 500 mg HS PO 10/29/20 21:00 10/29/20 02:41 DC Trazodone HCl (Desyrel) 300 mg HS PO 10/29/20 21:00 10/31/20 19:37 Olanzapine (ZyPREXA) 30 mg QHS PO 10/29/20 21:00 10/30/20 18:00 DC 10/29/20 20:05 Risperidone (RisperDAL) 3 mg HS PO 10/29/20 21:00 10/30/20 18:00 DC 10/29/20 20:04 Aspirin (Aspirin Enteric Coated) 81 mg DAILY PO 10/29/20 09:00 11/01/20 07:41 Calcium/Vitamin D (Oscal D 500mg/ 200uts) 1 tab DAILY PO 10/29/20 09:00 11/01/20 07:41 Carbamide Peroxide (Debrox) 2 drop DAILY AU 10/29/20 09:00 11/01/20 07:43 Carvedilol (Coreg) 6.25 mg BIDWMEALS PO 10/29/20 08:00 11/01/20 07:41 Famotidine (Pepcid) 20 mg BID PO 10/29/20 09:00 11/01/20 07:41 Finasteride (Proscar) 5 mg DAILY PO 10/29/20 09:00 11/01/20 07:41 Levothyroxine Sodium (Synthroid) 25 mcg DAILY06 PO 10/29/20 06:00 11/01/20 05:04 Lisinopril (Prinivil) 20 mg DAILY PO 10/29/20 09:00 11/01/20 07:41 Simvastatin (Zocor) 20 mg HS PO 10/29/20 21:00 10/31/20 19:36 Tizanidine HCl (Zanaflex) 2 mg PRN TID PRN PO MUSCLE SPASTICITY 10/29/20 02:15 10/30/20 22:11 Diclofenac Sodium (Voltaren) 75 mg BID PO 10/29/20 09:00 11/01/20 07:42 Lactulose (Lactulose) 20 gm BID PO 10/29/20 09:00 11/01/20 07:42 Nicotine Polacrilex (Nicorette Gum) 2 mg PRN Q1HR PRN BC SMOKING CESSATION 10/29/20 02:30 10/29/20 16:01 Oxybutynin Chloride (Ditropan) 5 mg BID PO 10/29/20 09:00 11/01/20 07:41 Olanzapine (ZyPREXA ZYDIS) 2.5 mg PRN Q2HR PRN PO PSYCHOSIS 10/29/20 02:45 Divalproex Sodium (Depakote Er) 1,000 mg HS PO 10/29/20 21:00 10/31/20 19:38 Olanzapine (ZyPREXA) 20 mg QHS PO 10/30/20 21:00 10/31/20 19:38 Risperidone (RisperDAL) 3.5 mg HS PO 10/30/20 21:00 10/31/20 19:36 I have reviewed the current psychotropics carefully including drug interactions. Risk benefit ratio favors no change other than as noted in my dictated progress note. Diagnosis: Problems: (1) Schizoaffective disorder, chronic condition with acute exacerbation (2) Schizoaffective disorder, mixed type (3) Bipolar disorder, current episode mixed, severe, with psychotic features (4) Impulse control disorder (5) Anxiety disorder, unspecified CLAUDIA ZAVALA MD Nov 01, 2020 09:18
[2020-11-01 15:02] VITALS: BP 158/99
[2020-11-01] MEDS: DIVALPROEX ER 500 MG TAB.ER.24H PO SCH (20:38)
[2020-11-01] MEDS: OLANZapine 10 MG TABLET PO SCH (20:38)
[2020-11-01] MEDS: traZODone 100 MG TABLET. PO SCH (20:38)
[2020-11-01] MEDS: risperiDONE 1 MG TABLET. PO SCH (20:39)
[2020-11-01] MEDS: SIMVASTATIN 20 MG TABLET PO SCH (20:42)
--- NOTE | 2020-11-01 21:15 | PDOC ---
Exam Note: Zackary Note: Please also refer to the separate dictated note~for this date of service dictated separately.~Patient seen individually. Discussed the patient with Nursing staff reviewed the chart.~Reviewed interim history and current functioning. Reviewed vital signs,~Labs/ Radiology~and current medications noted below. Continue current treatment with the changes noted in the dictated addendum note Assessment: Vital Signs/I&O: Vital Signs Date Time Temp Pulse Resp B/P (MAP) Pulse Ox O2 Delivery O2 Flow Rate FiO2 11/01/20 17:06 67 158/99 11/01/20 15:02 97.2 18 11/01/20 05:47 98 10/31/20 15:00 Room Air I & O 10/31/20 10/31/20 11/01/20 14:59 22:59 06:59 Intake Total 600 ml 240 ml 240 ml Balance 600 ml 240 ml 240 ml Current Medications: I have reviewed the current psychotropics carefully including drug interactions. Risk benefit ratio favors no change other than as noted in my dictated progress note. Diagnosis: Problems: (1) Schizoaffective disorder, chronic condition with acute exacerbation (2) Schizoaffective disorder, mixed type (3) Bipolar disorder, current episode mixed, severe, with psychotic features (4) Impulse control disorder (5) Anxiety disorder, unspecified CLAUDIA ZAVALA MD Nov 01, 2020 21:15
[2020-11-02] MEDS: NICOTINE POLACRILEX GUM 2 MG GUM. BC PRN (02:31)
[2020-11-02] MEDS: LEVOTHYROXINE 25 MCG TABLET. PO SCH (04:56)
[2020-11-02 05:53] VITALS: BP 149/82
[2020-11-02 07:03] LABS: BASO # 0.1 x10^3/uL (0.0-0.2); BASO % 1 % (0-3); EOS # 0.3 x10^3/uL (0.0-0.7); EOS % 3 % (0-3); HEMATOCRIT 37.1 % (39.0-53.0); HEMOGLOBIN 12.5 g/dL (13.0-17.5); LYMPH # 4.4 x10^3/uL (1.0-4.8); LYMPH % 48 % (24-48); MEAN CORPUSCULAR HEMOGLOBIN 33 pg (25-35); MEAN CORPUSCULAR HGB CONC 34 g/dL (31-37); MEAN CORPUSCULAR VOLUME 97 fL (79-100); MONO # 0.8 x10^3/uL (0.0-1.1); MONO % 8 % (0-9); NEUT # 3.7 x10^3uL (1.8-7.7); NEUT % 40 % (31-73); PLATELET COUNT 123 x10^3/uL (140-400); RED BLOOD COUNT 3.81 x10^6/uL (4.30-5.70); RED CELL DISTRIBUTION WIDTH 14.3 % (11.5-14.5); WHITE BLOOD COUNT 9.2 x10^3/uL (4.0-11.0)
[2020-11-02 07:13] LABS: ALBUMIN/GLOBULIN RATIO 0.9 (1.0-1.7); ALK PHOS 49 U/L (46-116); ALT (SGPT) 21 U/L (16-63); ANION GAP 4 (6-14); AST (SGOT) 14 U/L (15-37); BLOOD UREA NITROGEN 17 mg/dL (8-26); BUN/CREATININE RATIO 21 (6-20); CALCIUM 8.3 mg/dL (8.5-10.1); CARBON DIOXIDE 30 mmol/L (21-32); CHLORIDE 105 mmol/L (98-107); CREATININE 0.8 mg/dL (0.7-1.3); GLUCOSE 96 mg/dL (70-99); POTASSIUM 3.8 mmol/L (3.5-5.1); SODIUM 139 mmol/L (136-145); TOTAL BILIRUBIN 0.4 mg/dL (0.2-1.0); TOTAL PROTEIN 6.3 g/dL (6.4-8.2)
[2020-11-02 07:17] LABS: VAL ACID 60 mcg/mL (50-100)
[2020-11-02] MEDS: OXYBUTYNIN CHLORIDE 5 MG TABLET PO SCH ×2 (08:43→19:49)
[2020-11-02] MEDS: LACTULOSE 20 GM/30 ML SOLUTION. PO SCH ×2 (08:43→19:50)
[2020-11-02] MEDS: CARVEDILOL 6.25 MG TABLET PO SCH ×2 (08:44→16:52)
[2020-11-02] MEDS: FAMOTIDINE 20 MG TABLET PO SCH ×2 (08:44→19:48)
[2020-11-02] MEDS: buPROPion XL 300 MG TAB.ER.24H. PO SCH (08:44)
[2020-11-02] MEDS: FINASTERIDE 5 MG TABLET. PO SCH (08:44)
[2020-11-02] MEDS: LISINOPRIL 20 MG TABLET PO SCH (08:44)
[2020-11-02] MEDS: ASPIRIN ENTERIC COATED 81 MG TABLET.DR. PO SCH (08:44)
[2020-11-02] MEDS: CALCIUM CARB/VIT D3 500/200 TABLET PO SCH (08:46)
[2020-11-02] MEDS: DICLOFENAC SODIUM 25 MG TABLET.DR PO SCH ×2 (08:48→19:54)
[2020-11-02] MEDS: CARBAMIDE PEROXIDE 6.5% OTIC SOLUTION 15ML BOTTLE. AU SCH (08:49)
[2020-11-02 16:33] VITALS: BP 131/87
[2020-11-02] MEDS: DIVALPROEX ER 500 MG TAB.ER.24H PO SCH (19:48)
[2020-11-02] MEDS: OLANZapine 10 MG TABLET PO SCH (19:49)
[2020-11-02] MEDS: risperiDONE 1 MG TABLET. PO SCH (19:49)
[2020-11-02] MEDS: traZODone 100 MG TABLET. PO SCH (19:49)
[2020-11-02] MEDS: SIMVASTATIN 20 MG TABLET PO SCH (19:49)
[2020-11-02] MEDS: MIRTAZAPINE 7.5 MG TABLET. PO SCH (19:54)
--- NOTE | 2020-11-02 20:50 | PDOC ---
Exam Note: Zackary Note: Please also refer to the separate dictated note~for this date of service dictated separately.~Patient seen individually. Discussed the patient with Nursing staff reviewed the chart.~Reviewed interim history and current functioning. Reviewed vital signs,~Labs/ Radiology~and current medications noted below. Continue current treatment with the changes noted in the dictated addendum note Assessment: Vital Signs/I&O: Vital Signs Date Time Temp Pulse Resp B/P (MAP) Pulse Ox O2 Delivery O2 Flow Rate FiO2 11/02/20 16:52 64 131/87 11/02/20 16:33 98.1 18 98 11/02/20 05:53 Room Air I & O 11/01/20 11/01/20 11/02/20 15:00 23:00 07:00 Intake Total 720 ml 480 ml Balance 720 ml 480 ml Labs: Laboratory Tests Test 11/02/20 06:39 White Blood Count 9.2 x10^3/uL (4.0-11.0) Red Blood Count 3.81 x10^6/uL (4.30-5.70) L Hemoglobin 12.5 g/dL (13.0-17.5) L Hematocrit 37.1 % (39.0-53.0) L Mean Corpuscular Volume 97 fL (79-100) Mean Corpuscular Hemoglobin 33 pg (25-35) Mean Corpuscular Hemoglobin Concent 34 g/dL (31-37) Red Cell Distribution Width 14.3 % (11.5-14.5) Platelet Count 123 x10^3/uL (140-400) L Neutrophils (%) (Auto) 40 % (31-73) Lymphocytes (%) (Auto) 48 % (24-48) Monocytes (%) (Auto) 8 % (0-9) Eosinophils (%) (Auto) 3 % (0-3) Basophils (%) (Auto) 1 % (0-3) Neutrophils # (Auto) 3.7 x10^3uL (1.8-7.7) Lymphocytes # (Auto) 4.4 x10^3/uL (1.0-4.8) Monocytes # (Auto) 0.8 x10^3/uL (0.0-1.1) Eosinophils # (Auto) 0.3 x10^3/uL (0.0-0.7) Basophils # (Auto) 0.1 x10^3/uL (0.0-0.2) Sodium Level 139 mmol/L (136-145) Potassium Level 3.8 mmol/L (3.5-5.1) Chloride Level 105 mmol/L (98-107) Carbon Dioxide Level 30 mmol/L (21-32) Anion Gap 4 (6-14) L Blood Urea Nitrogen 17 mg/dL (8-26) Creatinine 0.8 mg/dL (0.7-1.3) Estimated GFR (Cockcroft-Gault) 95.0 BUN/Creatinine Ratio 21 (6-20) H Glucose Level 96 mg/dL (70-99) Calcium Level 8.3 mg/dL (8.5-10.1) L Total Bilirubin 0.4 mg/dL (0.2-1.0) Aspartate Amino Transferase (AST) 14 U/L (15-37) L Alanine Aminotransferase (ALT) 21 U/L (16-63) Alkaline Phosphatase 49 U/L (46-116) Total Protein 6.3 g/dL (6.4-8.2) L Albumin 3.0 g/dL (3.4-5.0) L Albumin/Globulin Ratio 0.9 (1.0-1.7) L Valproic Acid Level 60 mcg/mL (50-100) Valproic Acid Last Dose Date 11/01/20 Valproic Acid Last Dose Time 2100 Current Medications: Meds: Current Medications Medications (Trade) Dose Ordered Sig/Andie Route PRN Reason Start Time Stop Time Status Last Admin Dose Admin Mirtazapine (Remeron) 7.5 mg QHS PO 11/02/20 21:00 11/02/20 19:54 I have reviewed the current psychotropics carefully including drug interactions. Risk benefit ratio favors no change other than as noted in my dictated progress note. Diagnosis: Problems: (1) Schizoaffective disorder, mixed type (2) Bipolar disorder, current episode mixed, severe, with psychotic features (3) Impulse control disorder (4) Anxiety disorder, unspecified CLAUDIA ZAVALA MD Nov 02, 2020 20:50
[2020-11-03 05:41] VITALS: BP 137/89
[2020-11-03] MEDS: LEVOTHYROXINE 25 MCG TABLET. PO SCH (05:45)
--- NOTE | 2020-11-03 07:58 | PDOC ---
Exam Note: Zackary Note: This note is a late entry for 11/01/2020 covers elements not covered in my initial note. Subjective: The patient was reviewed on telehealth rounds in the evening of 11/01/2020 with Kelly DEAN. Discussed with nursing staff, reviewed the chart. He slept 5 hours previous night. The patient has been anxious, restless, wanting to leave. We discussed, as he did with nursing staff and then later agreeable to staying till the psychotropics are adjusted. Appetite is fair. He is compliant with medications. Review of Systems: Ambulation impaired in wheelchair. No CV, , pulmonary, eye, ENT system symptoms on review. Mental Status Exam: The patient is oriented reasonably. Speech is coherent. Abstraction is fair. Computation impaired. Language function is intact. Attention span is short. Mood and affect somewhat withdrawn. No active suicidal or homicidal ideation but does have some paranoia. Laboratory Data: Reviewed. Impression: Bipolar 1 disorder mixed with psychotic features. History of schizoaffective disorder bipolar type. Anxiety disorder unspecified. Impulse control disorder unspecified. Plan: Continue current psychotropics. Risperdal has been increased to 3.5 mg a day, Zyprexa dropped from 30 mg down to 20 mg a day. Valproic acid level is therapeutic at 55. Adjust further as clinically indicated. Assessment: Vital Signs/I&O: Vital Signs Date Time Temp Pulse Resp B/P (MAP) Pulse Ox O2 Delivery O2 Flow Rate FiO2 11/03/20 05:41 97.1 89 18 137/89 (105) 99 11/02/20 05:53 Room Air I & O 11/02/20 11/02/20 11/03/20 15:00 23:00 07:00 Intake Total 560 ml 320 ml Balance 560 ml 320 ml Current Medications: Meds: Current Medications Medications (Trade) Dose Ordered Sig/Andie Route PRN Reason Start Time Stop Time Status Last Admin Dose Admin Acetaminophen (Tylenol) 650 mg PRN Q6HRS PRN PO MILD PAIN / TEMP > 100.3'F 10/29/20 00:30 Multi-Ingredient Ointment (Analgesic [place]) 1 anabel PRN QID PRN TP MUSCLE PAIN 10/29/20 00:30 Al Hydroxide/Mg Hydroxide (Mylanta Plus Xs) 15 ml PRN AFTMEALHC PRN PO DYSPEPSIA 10/29/20 00:30 Magnesium Hydroxide (Milk Of Magnesia) 2,400 mg PRN QHS PRN PO CONSTIPATION 10/29/20 00:30 Nicotine (Nicoderm Cq 7mg Patch) 1 patch DAILY TD 10/29/20 09:00 10/29/20 10:16 DC Bupropion HCl (Wellbutrin Xl) 300 mg DAILY PO 10/29/20 09:00 11/02/20 08:44 Divalproex Sodium (Depakote Er) 500 mg HS PO 10/29/20 21:00 10/29/20 02:41 DC Trazodone HCl (Desyrel) 300 mg HS PO 10/29/20 21:00 11/02/20 19:49 Olanzapine (ZyPREXA) 30 mg QHS PO 10/29/20 21:00 10/30/20 18:00 DC 10/29/20 20:05 Risperidone (RisperDAL) 3 mg HS PO 10/29/20 21:00 10/30/20 18:00 DC 10/29/20 20:04 Aspirin (Aspirin Enteric Coated) 81 mg DAILY PO 10/29/20 09:00 11/02/20 08:44 Calcium/Vitamin D (Oscal D 500mg/ 200uts) 1 tab DAILY PO 10/29/20 09:00 11/02/20 08:46 Carbamide Peroxide (Debrox) 2 drop DAILY AU 10/29/20 09:00 11/02/20 08:49 Carvedilol (Coreg) 6.25 mg BIDWMEALS PO 10/29/20 08:00 11/02/20 16:52 Famotidine (Pepcid) 20 mg BID PO 10/29/20 09:00 11/02/20 19:48 Finasteride (Proscar) 5 mg DAILY PO 10/29/20 09:00 11/02/20 08:44 Levothyroxine Sodium (Synthroid) 25 mcg DAILY06 PO 10/29/20 06:00 11/03/20 05:45 Lisinopril (Prinivil) 20 mg DAILY PO 10/29/20 09:00 11/02/20 08:44 Simvastatin (Zocor) 20 mg HS PO 10/29/20 21:00 11/02/20 19:49 Tizanidine HCl (Zanaflex) 2 mg PRN TID PRN PO MUSCLE SPASTICITY 10/29/20 02:15 10/30/20 22:11 Diclofenac Sodium (Voltaren) 75 mg BID PO 10/29/20 09:00 11/02/20 19:54 Lactulose (Lactulose) 20 gm BID PO 10/29/20 09:00 11/02/20 19:50 Nicotine Polacrilex (Nicorette Gum) 2 mg PRN Q1HR PRN BC SMOKING CESSATION 10/29/20 02:30 11/02/20 02:31 Oxybutynin Chloride (Ditropan) 5 mg BID PO 10/29/20 09:00 11/02/20 19:49 Olanzapine (ZyPREXA ZYDIS) 2.5 mg PRN Q2HR PRN PO PSYCHOSIS 10/29/20 02:45 Divalproex Sodium (Depakote Er) 1,000 mg HS PO 10/29/20 21:00 11/02/20 19:48 Olanzapine (ZyPREXA) 20 mg QHS PO 10/30/20 21:00 11/02/20 19:49 Risperidone (RisperDAL) 3.5 mg HS PO 10/30/20 21:00 11/02/20 19:49 Mirtazapine (Remeron) 7.5 mg QHS PO 11/02/20 21:00 11/02/20 19:54 Current Medications Medications (Trade) Dose Ordered Sig/Andie Route PRN Reason Start Time Stop Time Status Last Admin Dose Admin Mirtazapine (Remeron) 7.5 mg QHS PO 11/02/20 21:00 11/02/20 19:54 I have reviewed the current psychotropics carefully including drug interactions. Risk benefit ratio favors no change other than as noted in my dictated progress note. Diagnosis: Problems: (1) Bipolar disorder, current episode mixed, severe, with psychotic features (2) Impulse control disorder (3) Anxiety disorder, unspecified CLAUDIA ZAVALA MD Nov 03, 2020 07:58
--- NOTE | 2020-11-03 08:17 | PDOC ---
Exam Note: Zackary Note: This note is a late entry for 11/02/2020 covers elements not covered in my initial note. Subjective: The patient was reviewed on telehealth rounds in the evening of 11/02/2020 with Chloe DEAN. Discussed with nursing staff, reviewed the chart. He slept just 1/2 hours previous night. Overall the patient has been somewhat withdrawn, complains of some dizziness. Review of Systems: Ambulation impaired in wheelchair. No CV, , pulmonary, eye system symptoms on review. Mental Status Exam: The patient was seen on telehealth rounds in his room. Speech is coherent, has some latency. Abstraction is fair. Computation impaired. Language function is intact. Attention span is short. Mood and affect somewhat withdrawn, less paranoid. No active suicidal ideation. Laboratory Data: Reviewed. Impression: Bipolar 1 disorder mixed with psychotic features. History of schizoaffective disorder bipolar type. Anxiety disorder unspecified. Impulse control disorder unspecified. Plan: The patients valproic acid level repeat is 60. Continue psychotropics from initial note. Start Remeron 7.5 mg p.o. h.s. to help with insomnia as well as mood symptoms. Assessment: Vital Signs/I&O: Vital Signs Date Time Temp Pulse Resp B/P (MAP) Pulse Ox O2 Delivery O2 Flow Rate FiO2 11/03/20 05:41 97.1 89 18 137/89 (105) 99 11/02/20 05:53 Room Air I & O 11/02/20 11/02/20 11/03/20 15:00 23:00 07:00 Intake Total 560 ml 320 ml Balance 560 ml 320 ml Current Medications: Meds: Current Medications Medications (Trade) Dose Ordered Sig/Andie Route PRN Reason Start Time Stop Time Status Last Admin Dose Admin Acetaminophen (Tylenol) 650 mg PRN Q6HRS PRN PO MILD PAIN / TEMP > 100.3'F 10/29/20 00:30 Multi-Ingredient Ointment (Analgesic [place]) 1 anabel PRN QID PRN TP MUSCLE PAIN 10/29/20 00:30 Al Hydroxide/Mg Hydroxide (Mylanta Plus Xs) 15 ml PRN AFTMEALHC PRN PO DYSPEPSIA 10/29/20 00:30 Magnesium Hydroxide (Milk Of Magnesia) 2,400 mg PRN QHS PRN PO CONSTIPATION 10/29/20 00:30 Nicotine (Nicoderm Cq 7mg Patch) 1 patch DAILY TD 10/29/20 09:00 10/29/20 10:16 DC Bupropion HCl (Wellbutrin Xl) 300 mg DAILY PO 10/29/20 09:00 11/02/20 08:44 Divalproex Sodium (Depakote Er) 500 mg HS PO 10/29/20 21:00 10/29/20 02:41 DC Trazodone HCl (Desyrel) 300 mg HS PO 10/29/20 21:00 11/02/20 19:49 Olanzapine (ZyPREXA) 30 mg QHS PO 10/29/20 21:00 10/30/20 18:00 DC 10/29/20 20:05 Risperidone (RisperDAL) 3 mg HS PO 10/29/20 21:00 10/30/20 18:00 DC 10/29/20 20:04 Aspirin (Aspirin Enteric Coated) 81 mg DAILY PO 10/29/20 09:00 11/02/20 08:44 Calcium/Vitamin D (Oscal D 500mg/ 200uts) 1 tab DAILY PO 10/29/20 09:00 11/02/20 08:46 Carbamide Peroxide (Debrox) 2 drop DAILY AU 10/29/20 09:00 11/02/20 08:49 Carvedilol (Coreg) 6.25 mg BIDWMEALS PO 10/29/20 08:00 11/02/20 16:52 Famotidine (Pepcid) 20 mg BID PO 10/29/20 09:00 11/02/20 19:48 Finasteride (Proscar) 5 mg DAILY PO 10/29/20 09:00 11/02/20 08:44 Levothyroxine Sodium (Synthroid) 25 mcg DAILY06 PO 10/29/20 06:00 11/03/20 05:45 Lisinopril (Prinivil) 20 mg DAILY PO 10/29/20 09:00 11/02/20 08:44 Simvastatin (Zocor) 20 mg HS PO 10/29/20 21:00 11/02/20 19:49 Tizanidine HCl (Zanaflex) 2 mg PRN TID PRN PO MUSCLE SPASTICITY 10/29/20 02:15 10/30/20 22:11 Diclofenac Sodium (Voltaren) 75 mg BID PO 10/29/20 09:00 11/02/20 19:54 Lactulose (Lactulose) 20 gm BID PO 10/29/20 09:00 11/02/20 19:50 Nicotine Polacrilex (Nicorette Gum) 2 mg PRN Q1HR PRN BC SMOKING CESSATION 10/29/20 02:30 11/02/20 02:31 Oxybutynin Chloride (Ditropan) 5 mg BID PO 10/29/20 09:00 11/02/20 19:49 Olanzapine (ZyPREXA ZYDIS) 2.5 mg PRN Q2HR PRN PO PSYCHOSIS 10/29/20 02:45 Divalproex Sodium (Depakote Er) 1,000 mg HS PO 10/29/20 21:00 11/02/20 19:48 Olanzapine (ZyPREXA) 20 mg QHS PO 10/30/20 21:00 11/02/20 19:49 Risperidone (RisperDAL) 3.5 mg HS PO 10/30/20 21:00 11/02/20 19:49 Mirtazapine (Remeron) 7.5 mg QHS PO 11/02/20 21:00 11/02/20 19:54 Current Medications Medications (Trade) Dose Ordered Sig/Andie Route PRN Reason Start Time Stop Time Status Last Admin Dose Admin Mirtazapine (Remeron) 7.5 mg QHS PO 11/02/20 21:00 11/02/20 19:54 I have reviewed the current psychotropics carefully including drug interactions. Risk benefit ratio favors no change other than as noted in my dictated progress note. Diagnosis: Problems: (1) Bipolar disorder, current episode mixed, severe, with psychotic features (2) Impulse control disorder (3) Anxiety disorder, unspecified CLAUDIA ZAVALA MD Nov 03, 2020 08:17
[2020-11-03] MEDS: CARVEDILOL 6.25 MG TABLET PO SCH ×2 (08:22→17:47)
[2020-11-03] MEDS: CALCIUM CARB/VIT D3 500/200 TABLET PO SCH (08:22)
[2020-11-03] MEDS: LACTULOSE 20 GM/30 ML SOLUTION. PO SCH ×2 (08:22→20:02)
[2020-11-03] MEDS: OXYBUTYNIN CHLORIDE 5 MG TABLET PO SCH ×2 (08:23→20:02)
[2020-11-03] MEDS: LISINOPRIL 20 MG TABLET PO SCH (08:23)
[2020-11-03] MEDS: FINASTERIDE 5 MG TABLET. PO SCH (08:24)
[2020-11-03] MEDS: buPROPion XL 300 MG TAB.ER.24H. PO SCH (08:24)
[2020-11-03] MEDS: ASPIRIN ENTERIC COATED 81 MG TABLET.DR. PO SCH (08:24)
[2020-11-03] MEDS: FAMOTIDINE 20 MG TABLET PO SCH ×2 (08:24→20:03)
[2020-11-03] MEDS: DICLOFENAC SODIUM 25 MG TABLET.DR PO SCH ×2 (08:25→20:01)
[2020-11-03] MEDS: CARBAMIDE PEROXIDE 6.5% OTIC SOLUTION 15ML BOTTLE. AU SCH (08:25)
[2020-11-03 16:17] VITALS: BP 138/95
[2020-11-03] MEDS: traZODone 100 MG TABLET. PO SCH (20:01)
[2020-11-03] MEDS: SIMVASTATIN 20 MG TABLET PO SCH (20:01)
[2020-11-03] MEDS: DIVALPROEX ER 500 MG TAB.ER.24H PO SCH (20:01)
[2020-11-03] MEDS: MIRTAZAPINE 7.5 MG TABLET. PO SCH (20:02)
[2020-11-03] MEDS: OLANZapine 10 MG TABLET PO SCH (20:02)
[2020-11-03] MEDS: risperiDONE 1 MG TABLET. PO SCH (20:02)
--- NOTE | 2020-11-03 20:47 | PDOC ---
Exam Note: Zackary Note: Please also refer to the separate dictated note~for this date of service dictated separately.~Patient seen individually. Discussed the patient with Nursing staff reviewed the chart.~Reviewed interim history and current functioning. Reviewed vital signs,~Labs/ Radiology~and current medications noted below. Continue current treatment with the changes noted in the dictated addendum note Assessment: Vital Signs/I&O: Vital Signs Date Time Temp Pulse Resp B/P (MAP) Pulse Ox O2 Delivery O2 Flow Rate FiO2 11/03/20 17:47 64 138/95 11/03/20 16:17 97.2 18 97 11/02/20 05:53 Room Air I & O 11/02/20 11/02/20 11/03/20 15:00 23:00 07:00 Intake Total 560 ml 320 ml Balance 560 ml 320 ml Current Medications: Meds: Current Medications Medications (Trade) Dose Ordered Sig/Andie Route PRN Reason Start Time Stop Time Status Last Admin Dose Admin Acetaminophen (Tylenol) 650 mg PRN Q6HRS PRN PO MILD PAIN / TEMP > 100.3'F 10/29/20 00:30 Multi-Ingredient Ointment (Analgesic [place]) 1 anabel PRN QID PRN TP MUSCLE PAIN 10/29/20 00:30 Al Hydroxide/Mg Hydroxide (Mylanta Plus Xs) 15 ml PRN AFTMEALHC PRN PO DYSPEPSIA 10/29/20 00:30 Magnesium Hydroxide (Milk Of Magnesia) 2,400 mg PRN QHS PRN PO CONSTIPATION 10/29/20 00:30 Nicotine (Nicoderm Cq 7mg Patch) 1 patch DAILY TD 10/29/20 09:00 10/29/20 10:16 DC Bupropion HCl (Wellbutrin Xl) 300 mg DAILY PO 10/29/20 09:00 11/03/20 08:24 Divalproex Sodium (Depakote Er) 500 mg HS PO 10/29/20 21:00 10/29/20 02:41 DC Trazodone HCl (Desyrel) 300 mg HS PO 10/29/20 21:00 11/03/20 20:01 Olanzapine (ZyPREXA) 30 mg QHS PO 10/29/20 21:00 10/30/20 18:00 DC 10/29/20 20:05 Risperidone (RisperDAL) 3 mg HS PO 10/29/20 21:00 10/30/20 18:00 DC 10/29/20 20:04 Aspirin (Aspirin Enteric Coated) 81 mg DAILY PO 10/29/20 09:00 11/03/20 08:24 Calcium/Vitamin D (Oscal D 500mg/ 200uts) 1 tab DAILY PO 10/29/20 09:00 11/03/20 08:22 Carbamide Peroxide (Debrox) 2 drop DAILY AU 10/29/20 09:00 11/03/20 08:25 Carvedilol (Coreg) 6.25 mg BIDWMEALS PO 10/29/20 08:00 11/03/20 17:47 Famotidine (Pepcid) 20 mg BID PO 10/29/20 09:00 11/03/20 20:03 Finasteride (Proscar) 5 mg DAILY PO 10/29/20 09:00 11/03/20 08:24 Levothyroxine Sodium (Synthroid) 25 mcg DAILY06 PO 10/29/20 06:00 11/03/20 05:45 Lisinopril (Prinivil) 20 mg DAILY PO 10/29/20 09:00 11/03/20 08:23 Simvastatin (Zocor) 20 mg HS PO 10/29/20 21:00 11/03/20 20:01 Tizanidine HCl (Zanaflex) 2 mg PRN TID PRN PO MUSCLE SPASTICITY 10/29/20 02:15 10/30/20 22:11 Diclofenac Sodium (Voltaren) 75 mg BID PO 10/29/20 09:00 11/03/20 20:01 Lactulose (Lactulose) 20 gm BID PO 10/29/20 09:00 11/03/20 20:02 Nicotine Polacrilex (Nicorette Gum) 2 mg PRN Q1HR PRN BC SMOKING CESSATION 10/29/20 02:30 11/02/20 02:31 Oxybutynin Chloride (Ditropan) 5 mg BID PO 10/29/20 09:00 11/03/20 20:02 Olanzapine (ZyPREXA ZYDIS) 2.5 mg PRN Q2HR PRN PO PSYCHOSIS 10/29/20 02:45 Divalproex Sodium (Depakote Er) 1,000 mg HS PO 10/29/20 21:00 11/03/20 20:01 Olanzapine (ZyPREXA) 20 mg QHS PO 10/30/20 21:00 11/03/20 20:02 Risperidone (RisperDAL) 3.5 mg HS PO 10/30/20 21:00 11/03/20 20:02 Mirtazapine (Remeron) 7.5 mg QHS PO 11/02/20 21:00 11/03/20 20:02 Current Medications Medications (Trade) Dose Ordered Sig/Andie Route PRN Reason Start Time Stop Time Status Last Admin Dose Admin Mirtazapine (Remeron) 7.5 mg QHS PO 11/02/20 21:00 11/03/20 20:02 I have reviewed the current psychotropics carefully including drug interactions. Risk benefit ratio favors no change other than as noted in my dictated progress note. Diagnosis: Problems: (1) Schizoaffective disorder, mixed type (2) Bipolar disorder, current episode mixed, severe, with psychotic features (3) Impulse control disorder (4) Anxiety disorder, unspecified CLAUDIA ZAVALA MD Nov 03, 2020 20:47
[2020-11-04] MEDS: LEVOTHYROXINE 25 MCG TABLET. PO SCH (05:01)
[2020-11-04 05:49] VITALS: BP 143/77
[2020-11-04] MEDS: OXYBUTYNIN CHLORIDE 5 MG TABLET PO SCH ×2 (08:43→19:47)
[2020-11-04] MEDS: ASPIRIN ENTERIC COATED 81 MG TABLET.DR. PO SCH (08:43)
[2020-11-04] MEDS: buPROPion XL 300 MG TAB.ER.24H. PO SCH (08:44)
[2020-11-04] MEDS: CALCIUM CARB/VIT D3 500/200 TABLET PO SCH (08:44)
[2020-11-04] MEDS: DICLOFENAC SODIUM 25 MG TABLET.DR PO SCH ×2 (08:44→19:48)
[2020-11-04] MEDS: CARVEDILOL 6.25 MG TABLET PO SCH ×2 (08:44→17:15)
[2020-11-04] MEDS: LACTULOSE 20 GM/30 ML SOLUTION. PO SCH ×2 (08:45→19:51)
[2020-11-04] MEDS: FAMOTIDINE 20 MG TABLET PO SCH ×2 (08:45→19:50)
[2020-11-04] MEDS: LISINOPRIL 20 MG TABLET PO SCH (08:45)
[2020-11-04] MEDS: FINASTERIDE 5 MG TABLET. PO SCH (08:45)
[2020-11-04] MEDS: CARBAMIDE PEROXIDE 6.5% OTIC SOLUTION 15ML BOTTLE. AU SCH (08:49)
[2020-11-04 15:24] VITALS: BP 149/98
[2020-11-04] MEDS: traZODone 100 MG TABLET. PO SCH (19:48)
[2020-11-04] MEDS: risperiDONE 1 MG TABLET. PO SCH (19:49)
[2020-11-04] MEDS: DIVALPROEX ER 500 MG TAB.ER.24H PO SCH (19:49)
[2020-11-04] MEDS: MIRTAZAPINE 7.5 MG TABLET. PO SCH (19:50)
[2020-11-04] MEDS: SIMVASTATIN 20 MG TABLET PO SCH (19:50)
[2020-11-04] MEDS: OLANZapine 7.5 MG TABLET PO SCH (19:53)
--- NOTE | 2020-11-04 21:41 | PDOC ---
Exam Note: Zackary Note: Please also refer to the separate dictated note~for this date of service dictated separately.~Patient seen individually. Discussed the patient with Nursing staff reviewed the chart.~Reviewed interim history and current functioning. Reviewed vital signs,~Labs/ Radiology~and current medications noted below. Continue current treatment with the changes noted in the dictated addendum note Assessment: Vital Signs/I&O: Vital Signs Date Time Temp Pulse Resp B/P (MAP) Pulse Ox O2 Delivery O2 Flow Rate FiO2 11/04/20 17:15 90 149/98 11/04/20 15:24 97.3 18 93 11/04/20 05:49 Room Air I & O 11/03/20 11/03/20 11/04/20 15:00 23:00 07:00 Intake Total 360 ml 600 ml Balance 360 ml 600 ml Current Medications: Meds: Current Medications Medications (Trade) Dose Ordered Sig/Andie Route PRN Reason Start Time Stop Time Status Last Admin Dose Admin Acetaminophen (Tylenol) 650 mg PRN Q6HRS PRN PO MILD PAIN / TEMP > 100.3'F 10/29/20 00:30 Multi-Ingredient Ointment (Analgesic [place]) 1 anabel PRN QID PRN TP MUSCLE PAIN 10/29/20 00:30 Al Hydroxide/Mg Hydroxide (Mylanta Plus Xs) 15 ml PRN AFTMEALHC PRN PO DYSPEPSIA 10/29/20 00:30 Magnesium Hydroxide (Milk Of Magnesia) 2,400 mg PRN QHS PRN PO CONSTIPATION 10/29/20 00:30 Nicotine (Nicoderm Cq 7mg Patch) 1 patch DAILY TD 10/29/20 09:00 10/29/20 10:16 DC Bupropion HCl (Wellbutrin Xl) 300 mg DAILY PO 10/29/20 09:00 11/04/20 08:44 Divalproex Sodium (Depakote Er) 500 mg HS PO 10/29/20 21:00 10/29/20 02:41 DC Trazodone HCl (Desyrel) 300 mg HS PO 10/29/20 21:00 11/04/20 19:48 Olanzapine (ZyPREXA) 30 mg QHS PO 10/29/20 21:00 10/30/20 18:00 DC 10/29/20 20:05 Risperidone (RisperDAL) 3 mg HS PO 10/29/20 21:00 10/30/20 18:00 DC 10/29/20 20:04 Aspirin (Aspirin Enteric Coated) 81 mg DAILY PO 10/29/20 09:00 11/04/20 08:43 Calcium/Vitamin D (Oscal D 500mg/ 200uts) 1 tab DAILY PO 10/29/20 09:00 11/04/20 08:44 Carbamide Peroxide (Debrox) 2 drop DAILY AU 10/29/20 09:00 11/04/20 08:49 Carvedilol (Coreg) 6.25 mg BIDWMEALS PO 10/29/20 08:00 11/04/20 17:15 Famotidine (Pepcid) 20 mg BID PO 10/29/20 09:00 11/04/20 19:50 Finasteride (Proscar) 5 mg DAILY PO 10/29/20 09:00 11/04/20 08:45 Levothyroxine Sodium (Synthroid) 25 mcg DAILY06 PO 10/29/20 06:00 11/04/20 05:01 Lisinopril (Prinivil) 20 mg DAILY PO 10/29/20 09:00 11/04/20 08:45 Simvastatin (Zocor) 20 mg HS PO 10/29/20 21:00 11/04/20 19:50 Tizanidine HCl (Zanaflex) 2 mg PRN TID PRN PO MUSCLE SPASTICITY 10/29/20 02:15 10/30/20 22:11 Diclofenac Sodium (Voltaren) 75 mg BID PO 10/29/20 09:00 11/04/20 19:48 Lactulose (Lactulose) 20 gm BID PO 10/29/20 09:00 11/04/20 19:51 Nicotine Polacrilex (Nicorette Gum) 2 mg PRN Q1HR PRN BC SMOKING CESSATION 10/29/20 02:30 11/02/20 02:31 Oxybutynin Chloride (Ditropan) 5 mg BID PO 10/29/20 09:00 11/04/20 19:47 Olanzapine (ZyPREXA ZYDIS) 2.5 mg PRN Q2HR PRN PO PSYCHOSIS 10/29/20 02:45 Divalproex Sodium (Depakote Er) 1,000 mg HS PO 10/29/20 21:00 11/04/20 19:49 Olanzapine (ZyPREXA) 20 mg QHS PO 10/30/20 21:00 11/04/20 18:01 DC 11/03/20 20:02 Risperidone (RisperDAL) 3.5 mg HS PO 10/30/20 21:00 11/04/20 19:49 Mirtazapine (Remeron) 7.5 mg QHS PO 11/02/20 21:00 11/04/20 19:50 Olanzapine (ZyPREXA) 15 mg QHS PO 11/04/20 21:00 11/06/20 23:59 11/04/20 19:53 Olanzapine (ZyPREXA) 10 mg QHS PO 11/07/20 21:00 11/09/20 23:59 Olanzapine (ZyPREXA) 5 mg QHS PO 11/10/20 21:00 11/12/20 23:59 Current Medications Medications (Trade) Dose Ordered Sig/Andie Route PRN Reason Start Time Stop Time Status Last Admin Dose Admin Olanzapine (ZyPREXA) 15 mg QHS PO 11/04/20 21:00 11/06/20 23:59 11/04/20 19:53 I have reviewed the current psychotropics carefully including drug interactions. Risk benefit ratio favors no change other than as noted in my dictated progress note. Diagnosis: Problems: (1) Schizoaffective disorder, mixed type (2) Bipolar disorder, current episode mixed, severe, with psychotic features (3) Impulse control disorder (4) Anxiety disorder, unspecified CLAUDIA ZAVALA MD Nov 04, 2020 21:41
[2020-11-05] MEDS: NICOTINE POLACRILEX GUM 2 MG GUM. BC PRN (04:28)
[2020-11-05] MEDS: LEVOTHYROXINE 25 MCG TABLET. PO SCH (05:36)
[2020-11-05 06:22] VITALS: BP 147/85
--- NOTE | 2020-11-05 07:58 | PDOC ---
Exam Note: Zackary Note: This note is a late entry for 11/03/2020 covers elements not covered in my initial note. Subjective: The patient was reviewed on telehealth rounds in the evening of 11/03/2020 with Chloe DEAN. Discussed with nursing staff, reviewed the chart. He slept just 4-3/4 hours previous night. Overall the patient has been withdrawn, generally does better during the day but quite confused. Previous night was running down the hallway with his clothes taken off as if someone was chasing him. After some redirection, he seemed to settle down. Review of Systems: Ambulation impaired in wheelchair. No CV, , pulmonary, eye system symptoms on review. Positive for some tiredness. Mental Status Exam: The patient is reasonably oriented. Speech is coherent, has some latency. Abstraction is fair. Computation impaired. Language function is intact. Attention span is short. Mood and affect withdrawn. Laboratory Data: Reviewed. Impression: Bipolar 1 disorder mixed with psychotic features. History of schizoaffective disorder bipolar type. Anxiety disorder unspecified. Impulse control disorder unspecified. Plan: No change from initial note. We are gradually reducing the Zyprexa, increasing the Risperdal, maintaining the Wellbutrin, Remeron, trazodone. Depakote ER 1000 mg h.s. Level therapeutic at 60. Adjust further as clinically indicated. Assessment: Vital Signs/I&O: Vital Signs Date Time Temp Pulse Resp B/P (MAP) Pulse Ox O2 Delivery O2 Flow Rate FiO2 11/05/20 06:22 97.5 63 18 147/85 (105) 98 Room Air I & O 11/04/20 11/04/20 11/05/20 15:00 23:00 07:00 Intake Total 720 ml 360 ml Balance 720 ml 360 ml Current Medications: Meds: Current Medications Medications (Trade) Dose Ordered Sig/Andie Route PRN Reason Start Time Stop Time Status Last Admin Dose Admin Acetaminophen (Tylenol) 650 mg PRN Q6HRS PRN PO MILD PAIN / TEMP > 100.3'F 10/29/20 00:30 Multi-Ingredient Ointment (Analgesic [place]) 1 anabel PRN QID PRN TP MUSCLE PAIN 10/29/20 00:30 Al Hydroxide/Mg Hydroxide (Mylanta Plus Xs) 15 ml PRN AFTMEALHC PRN PO DYSPEPSIA 10/29/20 00:30 Magnesium Hydroxide (Milk Of Magnesia) 2,400 mg PRN QHS PRN PO CONSTIPATION 10/29/20 00:30 Nicotine (Nicoderm Cq 7mg Patch) 1 patch DAILY TD 10/29/20 09:00 10/29/20 10:16 DC Bupropion HCl (Wellbutrin Xl) 300 mg DAILY PO 10/29/20 09:00 11/04/20 08:44 Divalproex Sodium (Depakote Er) 500 mg HS PO 10/29/20 21:00 10/29/20 02:41 DC Trazodone HCl (Desyrel) 300 mg HS PO 10/29/20 21:00 11/04/20 19:48 Olanzapine (ZyPREXA) 30 mg QHS PO 10/29/20 21:00 10/30/20 18:00 DC 10/29/20 20:05 Risperidone (RisperDAL) 3 mg HS PO 10/29/20 21:00 10/30/20 18:00 DC 10/29/20 20:04 Aspirin (Aspirin Enteric Coated) 81 mg DAILY PO 10/29/20 09:00 11/04/20 08:43 Calcium/Vitamin D (Oscal D 500mg/ 200uts) 1 tab DAILY PO 10/29/20 09:00 11/04/20 08:44 Carbamide Peroxide (Debrox) 2 drop DAILY AU 10/29/20 09:00 11/04/20 08:49 Carvedilol (Coreg) 6.25 mg BIDWMEALS PO 10/29/20 08:00 11/04/20 17:15 Famotidine (Pepcid) 20 mg BID PO 10/29/20 09:00 11/04/20 19:50 Finasteride (Proscar) 5 mg DAILY PO 10/29/20 09:00 11/04/20 08:45 Levothyroxine Sodium (Synthroid) 25 mcg DAILY06 PO 10/29/20 06:00 11/05/20 05:36 Lisinopril (Prinivil) 20 mg DAILY PO 10/29/20 09:00 11/04/20 08:45 Simvastatin (Zocor) 20 mg HS PO 10/29/20 21:00 11/04/20 19:50 Tizanidine HCl (Zanaflex) 2 mg PRN TID PRN PO MUSCLE SPASTICITY 10/29/20 02:15 10/30/20 22:11 Diclofenac Sodium (Voltaren) 75 mg BID PO 10/29/20 09:00 11/04/20 19:48 Lactulose (Lactulose) 20 gm BID PO 10/29/20 09:00 11/04/20 19:51 Nicotine Polacrilex (Nicorette Gum) 2 mg PRN Q1HR PRN BC SMOKING CESSATION 10/29/20 02:30 11/05/20 04:28 Oxybutynin Chloride (Ditropan) 5 mg BID PO 10/29/20 09:00 11/04/20 19:47 Olanzapine (ZyPREXA ZYDIS) 2.5 mg PRN Q2HR PRN PO PSYCHOSIS 10/29/20 02:45 Divalproex Sodium (Depakote Er) 1,000 mg HS PO 10/29/20 21:00 11/04/20 19:49 Olanzapine (ZyPREXA) 20 mg QHS PO 10/30/20 21:00 11/04/20 18:01 DC 11/03/20 20:02 Risperidone (RisperDAL) 3.5 mg HS PO 10/30/20 21:00 11/04/20 19:49 Mirtazapine (Remeron) 7.5 mg QHS PO 11/02/20 21:00 11/04/20 19:50 Olanzapine (ZyPREXA) 15 mg QHS PO 11/04/20 21:00 11/06/20 23:59 11/04/20 19:53 Olanzapine (ZyPREXA) 10 mg QHS PO 11/07/20 21:00 11/09/20 23:59 Olanzapine (ZyPREXA) 5 mg QHS PO 11/10/20 21:00 11/12/20 23:59 Current Medications Medications (Trade) Dose Ordered Sig/Andie Route PRN Reason Start Time Stop Time Status Last Admin Dose Admin Olanzapine (ZyPREXA) 15 mg QHS PO 11/04/20 21:00 11/06/20 23:59 11/04/20 19:53 I have reviewed the current psychotropics carefully including drug interactions. Risk benefit ratio favors no change other than as noted in my dictated progress note. Diagnosis: Problems: (1) Schizoaffective disorder, bipolar type (2) Anxiety disorder, unspecified (3) Impulse control disorder (4) Bipolar disorder, current episode mixed, severe, with psychotic features CLAUDIA ZAVALA MD Nov 05, 2020 07:58
[2020-11-05] MEDS: OXYBUTYNIN CHLORIDE 5 MG TABLET PO SCH ×2 (08:09→20:24)
[2020-11-05] MEDS: CARVEDILOL 6.25 MG TABLET PO SCH ×2 (08:09→16:58)
[2020-11-05] MEDS: buPROPion XL 300 MG TAB.ER.24H. PO SCH (08:09)
[2020-11-05] MEDS: LACTULOSE 20 GM/30 ML SOLUTION. PO SCH ×2 (08:09→20:25)
[2020-11-05] MEDS: FAMOTIDINE 20 MG TABLET PO SCH ×2 (08:10→20:23)
[2020-11-05] MEDS: FINASTERIDE 5 MG TABLET. PO SCH (08:10)
[2020-11-05] MEDS: ASPIRIN ENTERIC COATED 81 MG TABLET.DR. PO SCH (08:10)
[2020-11-05] MEDS: DICLOFENAC SODIUM 25 MG TABLET.DR PO SCH ×2 (08:10→21:00)
[2020-11-05] MEDS: LISINOPRIL 20 MG TABLET PO SCH (08:10)
[2020-11-05] MEDS: CALCIUM CARB/VIT D3 500/200 TABLET PO SCH (08:10)
[2020-11-05] MEDS: CARBAMIDE PEROXIDE 6.5% OTIC SOLUTION 15ML BOTTLE. AU SCH (08:11)
--- NOTE | 2020-11-05 08:23 | PDOC ---
Exam Note: Zackary Note: This note is a late entry for 11/04/2020 covers elements not covered in my initial note. Subjective: The patient was reviewed on telehealth rounds in the evening of 11/04/2020 with Yana DEAN. Discussed with nursing staff, reviewed the chart. He slept just 9-1/4 hours previous night. The patient has been attending groups and doing better. However as I met with him he stated he has some intermittent fleeting visual hallucinations. He can see shadows of people that pass away quickly. No auditory hallucinations. No command hallucinations. Review of Systems: Ambulation impaired in wheelchair. No CV, , pulmonary, eye system symptoms on review. Mental Status Exam: The patient was seen on telehealth rounds in his room. Speech has some latency. Abstraction is fair. Computation impaired. Language function is intact. Attention span is short. Mood and affect somewhat withdrawn. No active suicidal ideation. Laboratory Data: Reviewed. Impression: Bipolar 1 disorder mixed with psychotic features. History of schizoaffective disorder bipolar type. Anxiety disorder unspecified. Impulse control disorder unspecified. Plan: No change from initial note, but we will reduce Zyprexa from 20 mg h.s. to 15 mg h.s. after he has been on 20 mg for 3 days, then 3 days later to 10 mg h.s., and then 3 days later to 5 mg h.s. and stop it thereafter. We will increase Risperdal to compensate for this if psychotic symptoms persist. Continue Wellbutrin, Remeron, Depakote along with Zyprexa p.r.n. Assessment: Vital Signs/I&O: Vital Signs Date Time Temp Pulse Resp B/P (MAP) Pulse Ox O2 Delivery O2 Flow Rate FiO2 11/05/20 08:10 63 147/85 11/05/20 06:22 97.5 18 98 Room Air I & O 11/04/20 11/04/20 11/05/20 15:00 23:00 07:00 Intake Total 720 ml 360 ml Balance 720 ml 360 ml Current Medications: Meds: Current Medications Medications (Trade) Dose Ordered Sig/Andie Route PRN Reason Start Time Stop Time Status Last Admin Dose Admin Acetaminophen (Tylenol) 650 mg PRN Q6HRS PRN PO MILD PAIN / TEMP > 100.3'F 10/29/20 00:30 Multi-Ingredient Ointment (Analgesic [place]) 1 anabel PRN QID PRN TP MUSCLE PAIN 10/29/20 00:30 Al Hydroxide/Mg Hydroxide (Mylanta Plus Xs) 15 ml PRN AFTMEALHC PRN PO DYSPEPSIA 10/29/20 00:30 Magnesium Hydroxide (Milk Of Magnesia) 2,400 mg PRN QHS PRN PO CONSTIPATION 10/29/20 00:30 Nicotine (Nicoderm Cq 7mg Patch) 1 patch DAILY TD 10/29/20 09:00 10/29/20 10:16 DC Bupropion HCl (Wellbutrin Xl) 300 mg DAILY PO 10/29/20 09:00 11/05/20 08:09 Divalproex Sodium (Depakote Er) 500 mg HS PO 10/29/20 21:00 10/29/20 02:41 DC Trazodone HCl (Desyrel) 300 mg HS PO 10/29/20 21:00 11/04/20 19:48 Olanzapine (ZyPREXA) 30 mg QHS PO 10/29/20 21:00 10/30/20 18:00 DC 10/29/20 20:05 Risperidone (RisperDAL) 3 mg HS PO 10/29/20 21:00 10/30/20 18:00 DC 10/29/20 20:04 Aspirin (Aspirin Enteric Coated) 81 mg DAILY PO 10/29/20 09:00 11/05/20 08:10 Calcium/Vitamin D (Oscal D 500mg/ 200uts) 1 tab DAILY PO 10/29/20 09:00 11/05/20 08:10 Carbamide Peroxide (Debrox) 2 drop DAILY AU 10/29/20 09:00 11/05/20 08:11 Carvedilol (Coreg) 6.25 mg BIDWMEALS PO 10/29/20 08:00 11/05/20 08:09 Famotidine (Pepcid) 20 mg BID PO 10/29/20 09:00 11/05/20 08:10 Finasteride (Proscar) 5 mg DAILY PO 10/29/20 09:00 11/05/20 08:10 Levothyroxine Sodium (Synthroid) 25 mcg DAILY06 PO 10/29/20 06:00 11/05/20 05:36 Lisinopril (Prinivil) 20 mg DAILY PO 10/29/20 09:00 11/05/20 08:10 Simvastatin (Zocor) 20 mg HS PO 10/29/20 21:00 11/04/20 19:50 Tizanidine HCl (Zanaflex) 2 mg PRN TID PRN PO MUSCLE SPASTICITY 10/29/20 02:15 10/30/20 22:11 Diclofenac Sodium (Voltaren) 75 mg BID PO 10/29/20 09:00 11/05/20 08:10 Lactulose (Lactulose) 20 gm BID PO 10/29/20 09:00 11/05/20 08:09 Nicotine Polacrilex (Nicorette Gum) 2 mg PRN Q1HR PRN BC SMOKING CESSATION 10/29/20 02:30 11/05/20 04:28 Oxybutynin Chloride (Ditropan) 5 mg BID PO 10/29/20 09:00 11/05/20 08:09 Olanzapine (ZyPREXA ZYDIS) 2.5 mg PRN Q2HR PRN PO PSYCHOSIS 10/29/20 02:45 Divalproex Sodium (Depakote Er) 1,000 mg HS PO 10/29/20 21:00 11/04/20 19:49 Olanzapine (ZyPREXA) 20 mg QHS PO 10/30/20 21:00 11/04/20 18:01 DC 11/03/20 20:02 Risperidone (RisperDAL) 3.5 mg HS PO 10/30/20 21:00 11/04/20 19:49 Mirtazapine (Remeron) 7.5 mg QHS PO 11/02/20 21:00 11/04/20 19:50 Olanzapine (ZyPREXA) 15 mg QHS PO 11/04/20 21:00 11/06/20 23:59 11/04/20 19:53 Olanzapine (ZyPREXA) 10 mg QHS PO 11/07/20 21:00 11/09/20 23:59 Olanzapine (ZyPREXA) 5 mg QHS PO 11/10/20 21:00 11/12/20 23:59 Current Medications Medications (Trade) Dose Ordered Sig/Andie Route PRN Reason Start Time Stop Time Status Last Admin Dose Admin Olanzapine (ZyPREXA) 15 mg QHS PO 11/04/20 21:00 11/06/20 23:59 11/04/20 19:53 I have reviewed the current psychotropics carefully including drug interactions. Risk benefit ratio favors no change other than as noted in my dictated progress note. Diagnosis: Problems: (1) Bipolar disorder, current episode mixed, severe, with psychotic features (2) Schizoaffective disorder, bipolar type (3) Impulse control disorder (4) Anxiety disorder, unspecified CLAUDIA ZAVALA MD Nov 05, 2020 08:22
--- NOTE | 2020-11-05 12:29 | TX PLAN ---
Interdisciplinary Tx Plan Admission Information Oct 28, 2020 at 23:49 Legal Status (on Admission): Voluntary DPOA/Guardian Name: Irving Posada-Pt is a self sign Contact Other Contact Name: Irving Posada-Self sign Other Contact Verified Code Status: Full Code Allergies: Coded Allergies: chlorpromazine (Verified Allergy, Unknown, 10/29/20) divalproex sodium (Verified Adverse Reaction, Unknown, weight gain, 10/29/20) lithium (Verified Adverse Reaction, Unknown, diarrhea , 10/29/20) risperidone (Verified Adverse Reaction, Unknown, tremors, 10/29/20) Diagnoses Primary Diagnosis: Schizoaffective Disorder, Acute Exacerbation Reasons for Admission: Sig. Change Sleep, Confusion/Disoriented, Other Problem in Patient's Words: Per pt,"I was told that I was showing some odd behaviors and had put things on my neighbors porch. I, also, don't sleep well." Additional Admission Comments: Per intake record pt was demonstrating behaviors of confusion. He took household items from his apartment and sat them on his neighbors front porch. Another concern was that he took two day worth of his medication. Also, per intake, pt has been showing a flat affect. Per pt [facility] social work administrator pt seems to struggle every other year around September. Problems Active Problems: Sleep, medication regimen Inactive Problems: Confusion Pt Strengths/Limitations Ability for [place]: Good Cognitive Functioning/Ability: Good Financial Resources: Good Insight/Judgement: Fair Intellectual Ability: Good Physical Health: Fair Social Skills: Good Stability in Family: Poor Stability in School/Work: Good Verbal Skills: Good Discharge Criteria Discharge Criteria: Able meet basic life need, Able to meet health needs, Adequate arrangements @DC, Adequate self-care, Verbal commit med comply, Improved behavior Other Discharge Comments: Pt to follow up with [facility] PCP, psychiatrist, and SW upon d/c. Preliminary Discharge Plan Preliminary DC Plan: Current Living Arrange. Special Precautions Special Precautions: Other Fall Risk: Moderate Initial D/C Plan Pt to follow-up with his PCP, psychiatrist, and social work administrator through the [facility] upon discharge. Identified Discharge Needs: None Currently Utilized Resources Currently Utilized Resources/P: PCP, Psychiatrist, and [phone] Identified Problems/Hx/Goals Objectives/Short-Term Goals Short Term Goals: Control abnormal behavior, Medication Stabilization, Monitor Med Effects, Promote Coping Skill Short Term Goals in Patient's: "To get help with sleep and adjust medications." Interventions/Frequency Staff Interventions/Frequency&: Psychiatry to assess pt three times per week for medication management. Nursing to assess behaviors, monitor medications, and complete 15 minute checks daily. Social work to see pt at least twice weekly to aid in return home. Activities to encourage pt to participate in group activities daily. 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 Education: Pt graduated high school from [employer]. Community Follow-up PCP, psychiatrist, and SW through [facility] Treatment Plan Explained Patient/Financial Adviser had this treatment plan explained to him/her as indicated by the signature below and has been given the opportunity to ask questions and make suggestions: Date: Patient/Financial Adviser Signature: Status Update Update Pt eats 95% of his meals and averages 8 hours of sleep per night. Pt has been participating in groups, and sometimes gets frustrated that his thinking isn't clear. He is agreeable to try to write things down in a journal. He is very approachable and engaging. Pt is slowly being weaned off of Olanzapine and will remain on Risperidone. Other medication that pt is currently taking are Bupropion, Divalproex, Trazodone, and Remeron. Pt to d/c home with an anticipated d/c date being within the next couple of weeks provided pt is stable with medication adjustments. SMOOTH RASHEED Nov 05, 2020 12:29
[2020-11-05] MEDS ORDERED: POLYETHYLENE GLYCOL 3350 17 GM PACKET. PO PRN (14:00)
[2020-11-05 15:34] VITALS: BP 135/86
[2020-11-05] MEDS: OLANZapine 7.5 MG TABLET PO SCH (20:23)
[2020-11-05] MEDS: traZODone 100 MG TABLET. PO SCH (20:24)
[2020-11-05] MEDS: DIVALPROEX ER 500 MG TAB.ER.24H PO SCH (20:24)
[2020-11-05] MEDS: MIRTAZAPINE 7.5 MG TABLET. PO SCH (20:24)
[2020-11-05] MEDS: SIMVASTATIN 20 MG TABLET PO SCH (20:24)
[2020-11-05] MEDS: risperiDONE 1 MG TABLET. PO SCH (20:25)
--- NOTE | 2020-11-05 21:00 | PDOC ---
Exam Note: Zackary Note: Please also refer to the separate dictated note~for this date of service dictated separately.~Patient seen individually. Discussed the patient with Nursing staff reviewed the chart.~Reviewed interim history and current functioning. Reviewed vital signs,~Labs/ Radiology~and current medications noted below. Continue current treatment with the changes noted in the dictated addendum note Assessment: Vital Signs/I&O: Vital Signs Date Time Temp Pulse Resp B/P (MAP) Pulse Ox O2 Delivery O2 Flow Rate FiO2 11/05/20 16:58 91 135/86 11/05/20 15:34 98.0 18 94 11/05/20 06:22 Room Air I & O 11/04/20 11/04/20 11/05/20 15:00 23:00 07:00 Intake Total 720 ml 360 ml Balance 720 ml 360 ml Current Medications: Meds: Current Medications Medications (Trade) Dose Ordered Sig/Andie Route PRN Reason Start Time Stop Time Status Last Admin Dose Admin Acetaminophen (Tylenol) 650 mg PRN Q6HRS PRN PO MILD PAIN / TEMP > 100.3'F 10/29/20 00:30 Multi-Ingredient Ointment (Analgesic [place]) 1 anabel PRN QID PRN TP MUSCLE PAIN 10/29/20 00:30 Al Hydroxide/Mg Hydroxide (Mylanta Plus Xs) 15 ml PRN AFTMEALHC PRN PO DYSPEPSIA 10/29/20 00:30 Magnesium Hydroxide (Milk Of Magnesia) 2,400 mg PRN QHS PRN PO CONSTIPATION 10/29/20 00:30 Nicotine (Nicoderm Cq 7mg Patch) 1 patch DAILY TD 10/29/20 09:00 10/29/20 10:16 DC Bupropion HCl (Wellbutrin Xl) 300 mg DAILY PO 10/29/20 09:00 11/05/20 08:09 Divalproex Sodium (Depakote Er) 500 mg HS PO 10/29/20 21:00 10/29/20 02:41 DC Trazodone HCl (Desyrel) 300 mg HS PO 10/29/20 21:00 11/05/20 20:24 Olanzapine (ZyPREXA) 30 mg QHS PO 10/29/20 21:00 10/30/20 18:00 DC 10/29/20 20:05 Risperidone (RisperDAL) 3 mg HS PO 10/29/20 21:00 10/30/20 18:00 DC 10/29/20 20:04 Aspirin (Aspirin Enteric Coated) 81 mg DAILY PO 10/29/20 09:00 11/05/20 08:10 Calcium/Vitamin D (Oscal D 500mg/ 200uts) 1 tab DAILY PO 10/29/20 09:00 11/05/20 08:10 Carbamide Peroxide (Debrox) 2 drop DAILY AU 10/29/20 09:00 11/05/20 08:11 Carvedilol (Coreg) 6.25 mg BIDWMEALS PO 10/29/20 08:00 11/05/20 16:58 Famotidine (Pepcid) 20 mg BID PO 10/29/20 09:00 11/05/20 20:23 Finasteride (Proscar) 5 mg DAILY PO 10/29/20 09:00 11/05/20 08:10 Levothyroxine Sodium (Synthroid) 25 mcg DAILY06 PO 10/29/20 06:00 11/05/20 05:36 Lisinopril (Prinivil) 20 mg DAILY PO 10/29/20 09:00 11/05/20 08:10 Simvastatin (Zocor) 20 mg HS PO 10/29/20 21:00 11/05/20 20:24 Tizanidine HCl (Zanaflex) 2 mg PRN TID PRN PO MUSCLE SPASTICITY 10/29/20 02:15 10/30/20 22:11 Diclofenac Sodium (Voltaren) 75 mg BID PO 10/29/20 09:00 11/05/20 08:10 Lactulose (Lactulose) 20 gm BID PO 10/29/20 09:00 11/05/20 20:25 Nicotine Polacrilex (Nicorette Gum) 2 mg PRN Q1HR PRN BC SMOKING CESSATION 10/29/20 02:30 11/05/20 04:28 Oxybutynin Chloride (Ditropan) 5 mg BID PO 10/29/20 09:00 11/05/20 20:24 Olanzapine (ZyPREXA ZYDIS) 2.5 mg PRN Q2HR PRN PO PSYCHOSIS 10/29/20 02:45 Divalproex Sodium (Depakote Er) 1,000 mg HS PO 10/29/20 21:00 11/05/20 20:24 Olanzapine (ZyPREXA) 20 mg QHS PO 10/30/20 21:00 11/04/20 18:01 DC 11/03/20 20:02 Risperidone (RisperDAL) 3.5 mg HS PO 10/30/20 21:00 11/05/20 20:25 Mirtazapine (Remeron) 7.5 mg QHS PO 11/02/20 21:00 11/05/20 20:24 Olanzapine (ZyPREXA) 15 mg QHS PO 11/04/20 21:00 11/06/20 23:59 11/05/20 20:23 Olanzapine (ZyPREXA) 10 mg QHS PO 11/07/20 21:00 11/09/20 23:59 Olanzapine (ZyPREXA) 5 mg QHS PO 11/10/20 21:00 11/12/20 23:59 Polyethylene Glycol (miraLAX) 17 gm PRN DAILY PRN PO CONSTIPATION 11/05/20 14:00 Current Medications Medications (Trade) Dose Ordered Sig/Andie Route PRN Reason Start Time Stop Time Status Last Admin Dose Admin Olanzapine (ZyPREXA) 15 mg QHS PO 11/04/20 21:00 11/06/20 23:59 11/05/20 20:23 I have reviewed the current psychotropics carefully including drug interactions. Risk benefit ratio favors no change other than as noted in my dictated progress note. Diagnosis: Problems: (1) Schizoaffective disorder, bipolar type (2) Bipolar disorder, current episode mixed, severe, with psychotic features (3) Impulse control disorder (4) Anxiety disorder, unspecified CLAUDIA ZAVALA MD Nov 05, 2020 21:00
[2020-11-06] MEDS: LEVOTHYROXINE 25 MCG TABLET. PO SCH (05:25)
[2020-11-06 06:29] VITALS: BP 153/90
[2020-11-06] MEDS: ASPIRIN ENTERIC COATED 81 MG TABLET.DR. PO SCH (08:10)
[2020-11-06] MEDS: LACTULOSE 20 GM/30 ML SOLUTION. PO SCH ×2 (08:10→20:08)
[2020-11-06] MEDS: CALCIUM CARB/VIT D3 500/200 TABLET PO SCH (08:10)
[2020-11-06] MEDS: FAMOTIDINE 20 MG TABLET PO SCH ×2 (08:10→20:07)
[2020-11-06] MEDS: FINASTERIDE 5 MG TABLET. PO SCH (08:11)
[2020-11-06] MEDS: OXYBUTYNIN CHLORIDE 5 MG TABLET PO SCH ×2 (08:11→20:07)
[2020-11-06] MEDS: DICLOFENAC SODIUM 25 MG TABLET.DR PO SCH ×2 (08:11→20:07)
[2020-11-06] MEDS: LISINOPRIL 20 MG TABLET PO SCH (08:11)
[2020-11-06] MEDS: CARBAMIDE PEROXIDE 6.5% OTIC SOLUTION 15ML BOTTLE. AU SCH (08:12)
[2020-11-06] MEDS: buPROPion XL 300 MG TAB.ER.24H. PO SCH (08:12)
[2020-11-06] MEDS: CARVEDILOL 6.25 MG TABLET PO SCH ×2 (08:12→17:00)
[2020-11-06 15:00] VITALS: BP 146/96
[2020-11-06] MEDS: SIMVASTATIN 20 MG TABLET PO SCH (20:07)
[2020-11-06] MEDS: OLANZapine 7.5 MG TABLET PO SCH (20:08)
[2020-11-06] MEDS: DIVALPROEX ER 500 MG TAB.ER.24H PO SCH (20:08)
[2020-11-06] MEDS: MIRTAZAPINE 7.5 MG TABLET. PO SCH (20:08)
[2020-11-06] MEDS: risperiDONE 1 MG TABLET. PO SCH (20:09)
[2020-11-06] MEDS: traZODone 100 MG TABLET. PO SCH (20:13)
--- NOTE | 2020-11-06 21:06 | PDOC ---
Exam Note: Zackary Note: Please also refer to the separate dictated note~for this date of service dictated separately.~Patient seen individually. Discussed the patient with Nursing staff reviewed the chart.~Reviewed interim history and current functioning. Reviewed vital signs,~Labs/ Radiology~and current medications noted below. Continue current treatment with the changes noted in the dictated addendum note Assessment: Vital Signs/I&O: Vital Signs Date Time Temp Pulse Resp B/P (MAP) Pulse Ox O2 Delivery O2 Flow Rate FiO2 11/06/20 17:00 67 146/96 11/06/20 15:00 97.3 20 97 Room Air I & O 11/05/20 11/05/20 11/06/20 15:00 23:00 07:00 Intake Total 220 ml 480 ml Balance 220 ml 480 ml Current Medications: Meds: Current Medications Medications (Trade) Dose Ordered Sig/Andie Route PRN Reason Start Time Stop Time Status Last Admin Dose Admin Acetaminophen (Tylenol) 650 mg PRN Q6HRS PRN PO MILD PAIN / TEMP > 100.3'F 10/29/20 00:30 Multi-Ingredient Ointment (Analgesic [place]) 1 anabel PRN QID PRN TP MUSCLE PAIN 10/29/20 00:30 Al Hydroxide/Mg Hydroxide (Mylanta Plus Xs) 15 ml PRN AFTMEALHC PRN PO DYSPEPSIA 10/29/20 00:30 Magnesium Hydroxide (Milk Of Magnesia) 2,400 mg PRN QHS PRN PO 2ND CHOICE CONSTIPATION 10/29/20 00:30 Nicotine (Nicoderm Cq 7mg Patch) 1 patch DAILY TD 10/29/20 09:00 10/29/20 10:16 DC Bupropion HCl (Wellbutrin Xl) 300 mg DAILY PO 10/29/20 09:00 11/06/20 08:12 Divalproex Sodium (Depakote Er) 500 mg HS PO 10/29/20 21:00 10/29/20 02:41 DC Trazodone HCl (Desyrel) 300 mg HS PO 10/29/20 21:00 11/06/20 20:13 Olanzapine (ZyPREXA) 30 mg QHS PO 10/29/20 21:00 10/30/20 18:00 DC 10/29/20 20:05 Risperidone (RisperDAL) 3 mg HS PO 10/29/20 21:00 10/30/20 18:00 DC 10/29/20 20:04 Aspirin (Aspirin Enteric Coated) 81 mg DAILY PO 10/29/20 09:00 11/06/20 08:10 Calcium/Vitamin D (Oscal D 500mg/ 200uts) 1 tab DAILY PO 10/29/20 09:00 11/06/20 08:10 Carbamide Peroxide (Debrox) 2 drop DAILY AU 10/29/20 09:00 11/06/20 08:12 Carvedilol (Coreg) 6.25 mg BIDWMEALS PO 10/29/20 08:00 11/06/20 17:00 Famotidine (Pepcid) 20 mg BID PO 10/29/20 09:00 11/06/20 20:07 Finasteride (Proscar) 5 mg DAILY PO 10/29/20 09:00 11/06/20 08:11 Levothyroxine Sodium (Synthroid) 25 mcg DAILY06 PO 10/29/20 06:00 11/06/20 05:25 Lisinopril (Prinivil) 20 mg DAILY PO 10/29/20 09:00 11/06/20 08:11 Simvastatin (Zocor) 20 mg HS PO 10/29/20 21:00 11/06/20 20:07 Tizanidine HCl (Zanaflex) 2 mg PRN TID PRN PO MUSCLE SPASTICITY 10/29/20 02:15 10/30/20 22:11 Diclofenac Sodium (Voltaren) 75 mg BID PO 10/29/20 09:00 11/06/20 20:07 Lactulose (Lactulose) 20 gm BID PO 10/29/20 09:00 11/06/20 20:08 Nicotine Polacrilex (Nicorette Gum) 2 mg PRN Q1HR PRN BC SMOKING CESSATION 10/29/20 02:30 11/05/20 04:28 Oxybutynin Chloride (Ditropan) 5 mg BID PO 10/29/20 09:00 11/06/20 20:07 Olanzapine (ZyPREXA ZYDIS) 2.5 mg PRN Q2HR PRN PO PSYCHOSIS 10/29/20 02:45 Divalproex Sodium (Depakote Er) 1,000 mg HS PO 10/29/20 21:00 11/06/20 20:08 Olanzapine (ZyPREXA) 20 mg QHS PO 10/30/20 21:00 11/04/20 18:01 DC 11/03/20 20:02 Risperidone (RisperDAL) 3.5 mg HS PO 10/30/20 21:00 11/06/20 20:09 Mirtazapine (Remeron) 7.5 mg QHS PO 11/02/20 21:00 11/06/20 20:08 Olanzapine (ZyPREXA) 15 mg QHS PO 11/04/20 21:00 11/06/20 23:59 11/06/20 20:08 Olanzapine (ZyPREXA) 10 mg QHS PO 11/07/20 21:00 11/09/20 23:59 Olanzapine (ZyPREXA) 5 mg QHS PO 11/10/20 21:00 11/12/20 23:59 Polyethylene Glycol (miraLAX) 17 gm PRN DAILY PRN PO 1ST CHOICE CONSTIPATION 11/05/20 14:00 I have reviewed the current psychotropics carefully including drug interactions. Risk benefit ratio favors no change other than as noted in my dictated progress note. Diagnosis: Problems: (1) Bipolar disorder, current episode mixed, severe, with psychotic features (2) Impulse control disorder (3) Anxiety disorder, unspecified (4) Schizoaffective disorder, bipolar type CLAUDIA ZAVALA MD Nov 06, 2020 21:06
[2020-11-07] MEDS: LEVOTHYROXINE 25 MCG TABLET. PO SCH (05:42)
[2020-11-07 06:27] VITALS: BP 129/90
--- NOTE | 2020-11-07 08:25 | PDOC ---
Exam Note: Zackary Note: This note is a late entry for 11/05/2020 covers elements not covered in my initial note. Subjective: The patient was reviewed on telehealth rounds in the morning of 11/05/2020 for a treatment team meeting with Sheba Walker and Stephenie (social media marketing analyst), Annelise, activity therapy and Yana RN. Discussed with nursing staff, reviewed the chart. He slept 8-3/4 hours previous night. Overall the patient remains withdrawn. Denies any active hallucinations. He is tolerating the gradual tapering of the Zyprexa and we will increase the Risperdal if psychotic symptoms resurface. Review of Systems: Ambulation impaired with walker. No CV, , pulmonary, eye system symptoms on review. Mental Status Exam: The patient was seen on telehealth rounds in his room. He is pleasant, interactive, quite oriented. Speech has some latency. Abstraction is fair. Computation impaired. Language function is intact. Attention span is short. Mood and affect somewhat withdrawn. No active suicidal ideation, less paranoid. Laboratory Data: Reviewed. Impression: Bipolar 1 disorder mixed with psychotic features. History of schizoaffective disorder bipolar type. Anxiety disorder unspecified. Impulse control disorder unspecified. Plan: No change from initial note. Taper the Zyprexa. Increase the Risperdal as indicated. Assessment: Vital Signs/I&O: Vital Signs Date Time Temp Pulse Resp B/P (MAP) Pulse Ox O2 Delivery O2 Flow Rate FiO2 11/07/20 06:27 97.4 66 16 129/90 (103) 97 11/06/20 15:00 Room Air I & O 11/06/20 11/06/20 11/07/20 15:00 23:00 07:00 Intake Total 200 ml 840 ml Balance 200 ml 840 ml Current Medications: Meds: Current Medications Medications (Trade) Dose Ordered Sig/Andie Route PRN Reason Start Time Stop Time Status Last Admin Dose Admin Acetaminophen (Tylenol) 650 mg PRN Q6HRS PRN PO MILD PAIN / TEMP > 100.3'F 10/29/20 00:30 Multi-Ingredient Ointment (Analgesic [place]) 1 anabel PRN QID PRN TP MUSCLE PAIN 10/29/20 00:30 Al Hydroxide/Mg Hydroxide (Mylanta Plus Xs) 15 ml PRN AFTMEALHC PRN PO DYSPEPSIA 10/29/20 00:30 Magnesium Hydroxide (Milk Of Magnesia) 2,400 mg PRN QHS PRN PO 2ND CHOICE CONSTIPATION 10/29/20 00:30 Nicotine (Nicoderm Cq 7mg Patch) 1 patch DAILY TD 10/29/20 09:00 10/29/20 10:16 DC Bupropion HCl (Wellbutrin Xl) 300 mg DAILY PO 10/29/20 09:00 11/06/20 08:12 Divalproex Sodium (Depakote Er) 500 mg HS PO 10/29/20 21:00 10/29/20 02:41 DC Trazodone HCl (Desyrel) 300 mg HS PO 10/29/20 21:00 11/06/20 20:13 Olanzapine (ZyPREXA) 30 mg QHS PO 10/29/20 21:00 10/30/20 18:00 DC 10/29/20 20:05 Risperidone (RisperDAL) 3 mg HS PO 10/29/20 21:00 10/30/20 18:00 DC 10/29/20 20:04 Aspirin (Aspirin Enteric Coated) 81 mg DAILY PO 10/29/20 09:00 11/06/20 08:10 Calcium/Vitamin D (Oscal D 500mg/ 200uts) 1 tab DAILY PO 10/29/20 09:00 11/06/20 08:10 Carbamide Peroxide (Debrox) 2 drop DAILY AU 10/29/20 09:00 11/06/20 08:12 Carvedilol (Coreg) 6.25 mg BIDWMEALS PO 10/29/20 08:00 11/06/20 17:00 Famotidine (Pepcid) 20 mg BID PO 10/29/20 09:00 11/06/20 20:07 Finasteride (Proscar) 5 mg DAILY PO 10/29/20 09:00 11/06/20 08:11 Levothyroxine Sodium (Synthroid) 25 mcg DAILY06 PO 10/29/20 06:00 11/07/20 05:42 Lisinopril (Prinivil) 20 mg DAILY PO 10/29/20 09:00 11/06/20 08:11 Simvastatin (Zocor) 20 mg HS PO 10/29/20 21:00 11/06/20 20:07 Tizanidine HCl (Zanaflex) 2 mg PRN TID PRN PO MUSCLE SPASTICITY 10/29/20 02:15 10/30/20 22:11 Diclofenac Sodium (Voltaren) 75 mg BID PO 10/29/20 09:00 11/06/20 20:07 Lactulose (Lactulose) 20 gm BID PO 10/29/20 09:00 11/06/20 20:08 Nicotine Polacrilex (Nicorette Gum) 2 mg PRN Q1HR PRN BC SMOKING CESSATION 10/29/20 02:30 11/05/20 04:28 Oxybutynin Chloride (Ditropan) 5 mg BID PO 10/29/20 09:00 11/06/20 20:07 Olanzapine (ZyPREXA ZYDIS) 2.5 mg PRN Q2HR PRN PO PSYCHOSIS 10/29/20 02:45 Divalproex Sodium (Depakote Er) 1,000 mg HS PO 10/29/20 21:00 11/06/20 20:08 Olanzapine (ZyPREXA) 20 mg QHS PO 10/30/20 21:00 11/04/20 18:01 DC 11/03/20 20:02 Risperidone (RisperDAL) 3.5 mg HS PO 10/30/20 21:00 11/06/20 20:09 Mirtazapine (Remeron) 7.5 mg QHS PO 11/02/20 21:00 11/06/20 20:08 Olanzapine (ZyPREXA) 15 mg QHS PO 11/04/20 21:00 11/06/20 23:59 DC 11/06/20 20:08 Olanzapine (ZyPREXA) 10 mg QHS PO 11/07/20 21:00 11/09/20 23:59 Olanzapine (ZyPREXA) 5 mg QHS PO 11/10/20 21:00 11/12/20 23:59 Polyethylene Glycol (miraLAX) 17 gm PRN DAILY PRN PO 1ST CHOICE CONSTIPATION 11/05/20 14:00 I have reviewed the current psychotropics carefully including drug interactions. Risk benefit ratio favors no change other than as noted in my dictated progress note. Diagnosis: Problems: (1) Bipolar disorder, current episode mixed, severe, with psychotic features (2) Impulse control disorder (3) Anxiety disorder, unspecified (4) Polysubstance abuse (5) Schizoaffective disorder, bipolar type CLAUDIA ZAVALA MD Nov 07, 2020 08:25
--- NOTE | 2020-11-07 08:40 | PDOC ---
Exam Note: Zackary Note: This note is a late entry for 11/06/2020 covers elements not covered in my initial note. Subjective: The patient was reviewed on telehealth rounds in the evening of 11/06/2020 with Yana DEAN. Discussed with nursing staff, reviewed the chart. He slept just 8-1/4 hours previous night. The patient has been quite interactive with nursing staff. He seemed to show insight and do reasons for admission but when I met with him on telehealth rounds in the evening he said he was upset at me because he was still not discharged. I discussed at length that we were tapering the Zyprexa if psychosis resurfaces with this we will increase the Risperdal and needed to maintain the patients stabilization till we finished the transition off the Zyprexa. He was understanding at the end. Review of Systems: Ambulation impaired with walker. No CV, , pulmonary, eye system symptoms on review. Mental Status Exam: The patient was seen on telehealth rounds in his room. Speech is coherent. Abstraction is fair. Computation impaired. Language function is intact. Mood and affect somewhat withdrawn. No active suicidal ideation. Laboratory Data: Reviewed. Impression: Bipolar 1 disorder mixed with psychotic features. History of schizoaffective disorder bipolar type. Anxiety disorder unspecified. Impulse control disorder unspecified. Plan: Taper the Zyprexa. Increase Risperdal. Continue Depakote. Maintain Wellbutrin. Rest unchanged for now. Assessment: Vital Signs/I&O: Vital Signs Date Time Temp Pulse Resp B/P (MAP) Pulse Ox O2 Delivery O2 Flow Rate FiO2 11/07/20 06:27 97.4 66 16 129/90 (103) 97 11/06/20 15:00 Room Air I & O 11/06/20 11/06/20 11/07/20 15:00 23:00 07:00 Intake Total 200 ml 840 ml Balance 200 ml 840 ml Current Medications: Meds: Current Medications Medications (Trade) Dose Ordered Sig/Andie Route PRN Reason Start Time Stop Time Status Last Admin Dose Admin Acetaminophen (Tylenol) 650 mg PRN Q6HRS PRN PO MILD PAIN / TEMP > 100.3'F 10/29/20 00:30 Multi-Ingredient Ointment (Analgesic [place]) 1 anabel PRN QID PRN TP MUSCLE PAIN 10/29/20 00:30 Al Hydroxide/Mg Hydroxide (Mylanta Plus Xs) 15 ml PRN AFTMEALHC PRN PO DYSPEPSIA 10/29/20 00:30 Magnesium Hydroxide (Milk Of Magnesia) 2,400 mg PRN QHS PRN PO 2ND CHOICE CONSTIPATION 10/29/20 00:30 Nicotine (Nicoderm Cq 7mg Patch) 1 patch DAILY TD 10/29/20 09:00 10/29/20 10:16 DC Bupropion HCl (Wellbutrin Xl) 300 mg DAILY PO 10/29/20 09:00 11/06/20 08:12 Divalproex Sodium (Depakote Er) 500 mg HS PO 10/29/20 21:00 10/29/20 02:41 DC Trazodone HCl (Desyrel) 300 mg HS PO 10/29/20 21:00 11/06/20 20:13 Olanzapine (ZyPREXA) 30 mg QHS PO 10/29/20 21:00 10/30/20 18:00 DC 10/29/20 20:05 Risperidone (RisperDAL) 3 mg HS PO 10/29/20 21:00 10/30/20 18:00 DC 10/29/20 20:04 Aspirin (Aspirin Enteric Coated) 81 mg DAILY PO 10/29/20 09:00 11/06/20 08:10 Calcium/Vitamin D (Oscal D 500mg/ 200uts) 1 tab DAILY PO 10/29/20 09:00 11/06/20 08:10 Carbamide Peroxide (Debrox) 2 drop DAILY AU 10/29/20 09:00 11/06/20 08:12 Carvedilol (Coreg) 6.25 mg BIDWMEALS PO 10/29/20 08:00 11/06/20 17:00 Famotidine (Pepcid) 20 mg BID PO 10/29/20 09:00 11/06/20 20:07 Finasteride (Proscar) 5 mg DAILY PO 10/29/20 09:00 11/06/20 08:11 Levothyroxine Sodium (Synthroid) 25 mcg DAILY06 PO 10/29/20 06:00 11/07/20 05:42 Lisinopril (Prinivil) 20 mg DAILY PO 10/29/20 09:00 11/06/20 08:11 Simvastatin (Zocor) 20 mg HS PO 10/29/20 21:00 11/06/20 20:07 Tizanidine HCl (Zanaflex) 2 mg PRN TID PRN PO MUSCLE SPASTICITY 10/29/20 02:15 10/30/20 22:11 Diclofenac Sodium (Voltaren) 75 mg BID PO 10/29/20 09:00 11/06/20 20:07 Lactulose (Lactulose) 20 gm BID PO 10/29/20 09:00 11/06/20 20:08 Nicotine Polacrilex (Nicorette Gum) 2 mg PRN Q1HR PRN BC SMOKING CESSATION 10/29/20 02:30 11/05/20 04:28 Oxybutynin Chloride (Ditropan) 5 mg BID PO 10/29/20 09:00 11/06/20 20:07 Olanzapine (ZyPREXA ZYDIS) 2.5 mg PRN Q2HR PRN PO PSYCHOSIS 10/29/20 02:45 Divalproex Sodium (Depakote Er) 1,000 mg HS PO 10/29/20 21:00 11/06/20 20:08 Olanzapine (ZyPREXA) 20 mg QHS PO 10/30/20 21:00 11/04/20 18:01 DC 11/03/20 20:02 Risperidone (RisperDAL) 3.5 mg HS PO 10/30/20 21:00 11/06/20 20:09 Mirtazapine (Remeron) 7.5 mg QHS PO 11/02/20 21:00 11/06/20 20:08 Olanzapine (ZyPREXA) 15 mg QHS PO 11/04/20 21:00 11/06/20 23:59 DC 11/06/20 20:08 Olanzapine (ZyPREXA) 10 mg QHS PO 11/07/20 21:00 11/09/20 23:59 Olanzapine (ZyPREXA) 5 mg QHS PO 11/10/20 21:00 11/12/20 23:59 Polyethylene Glycol (miraLAX) 17 gm PRN DAILY PRN PO 1ST CHOICE CONSTIPATION 11/05/20 14:00 I have reviewed the current psychotropics carefully including drug interactions. Risk benefit ratio favors no change other than as noted in my dictated progress note. Diagnosis: Problems: (1) Bipolar disorder, current episode mixed, severe, with psychotic features (2) Impulse control disorder (3) Anxiety disorder, unspecified (4) Schizoaffective disorder, bipolar type CLAUDIA ZAVALA MD Nov 07, 2020 08:40
[2020-11-07] MEDS: FINASTERIDE 5 MG TABLET. PO SCH (08:41)
[2020-11-07] MEDS: LISINOPRIL 20 MG TABLET PO SCH (08:41)
[2020-11-07] MEDS: FAMOTIDINE 20 MG TABLET PO SCH ×2 (08:41→20:10)
[2020-11-07] MEDS: buPROPion XL 300 MG TAB.ER.24H. PO SCH (08:41)
[2020-11-07] MEDS: CALCIUM CARB/VIT D3 500/200 TABLET PO SCH (08:41)
[2020-11-07] MEDS: DICLOFENAC SODIUM 25 MG TABLET.DR PO SCH ×2 (08:41→20:12)
[2020-11-07] MEDS: ASPIRIN ENTERIC COATED 81 MG TABLET.DR. PO SCH (08:42)
[2020-11-07] MEDS: CARVEDILOL 6.25 MG TABLET PO SCH ×2 (08:42→17:32)
[2020-11-07] MEDS: OXYBUTYNIN CHLORIDE 5 MG TABLET PO SCH ×2 (08:42→20:09)
[2020-11-07] MEDS: CARBAMIDE PEROXIDE 6.5% OTIC SOLUTION 15ML BOTTLE. AU SCH (08:42)
[2020-11-07] MEDS: LACTULOSE 20 GM/30 ML SOLUTION. PO SCH ×2 (08:43→20:09)
[2020-11-07 16:28] VITALS: BP 125/82
[2020-11-07] MEDS: traZODone 100 MG TABLET. PO SCH (20:09)
[2020-11-07] MEDS: MIRTAZAPINE 7.5 MG TABLET. PO SCH (20:10)
[2020-11-07] MEDS: OLANZapine 10 MG TABLET PO SCH (20:10)
[2020-11-07] MEDS: DIVALPROEX ER 500 MG TAB.ER.24H PO SCH (20:11)
[2020-11-07] MEDS: SIMVASTATIN 20 MG TABLET PO SCH (20:11)
[2020-11-07] MEDS: risperiDONE 1 MG TABLET. PO SCH (20:12)
--- NOTE | 2020-11-07 21:05 | PDOC ---
Exam Note: Zackary Note: Please also refer to the separate dictated note~for this date of service dictated separately.~Patient seen individually. Discussed the patient with Nursing staff reviewed the chart.~Reviewed interim history and current functioning. Reviewed vital signs,~Labs/ Radiology~and current medications noted below. Continue current treatment with the changes noted in the dictated addendum note Assessment: Vital Signs/I&O: Vital Signs Date Time Temp Pulse Resp B/P (MAP) Pulse Ox O2 Delivery O2 Flow Rate FiO2 11/07/20 17:32 74 125/82 11/07/20 16:28 97.9 16 96 11/06/20 15:00 Room Air I & O 11/06/20 11/06/20 11/07/20 15:00 23:00 07:00 Intake Total 200 ml 840 ml Balance 200 ml 840 ml Current Medications: Meds: Current Medications Medications (Trade) Dose Ordered Sig/Andie Route PRN Reason Start Time Stop Time Status Last Admin Dose Admin Acetaminophen (Tylenol) 650 mg PRN Q6HRS PRN PO MILD PAIN / TEMP > 100.3'F 10/29/20 00:30 Multi-Ingredient Ointment (Analgesic [place]) 1 anabel PRN QID PRN TP MUSCLE PAIN 10/29/20 00:30 Al Hydroxide/Mg Hydroxide (Mylanta Plus Xs) 15 ml PRN AFTMEALHC PRN PO DYSPEPSIA 10/29/20 00:30 Magnesium Hydroxide (Milk Of Magnesia) 2,400 mg PRN QHS PRN PO 2ND CHOICE CONSTIPATION 10/29/20 00:30 Nicotine (Nicoderm Cq 7mg Patch) 1 patch DAILY TD 10/29/20 09:00 10/29/20 10:16 DC Bupropion HCl (Wellbutrin Xl) 300 mg DAILY PO 10/29/20 09:00 11/07/20 08:41 Divalproex Sodium (Depakote Er) 500 mg HS PO 10/29/20 21:00 10/29/20 02:41 DC Trazodone HCl (Desyrel) 300 mg HS PO 10/29/20 21:00 11/07/20 20:09 Olanzapine (ZyPREXA) 30 mg QHS PO 10/29/20 21:00 10/30/20 18:00 DC 10/29/20 20:05 Risperidone (RisperDAL) 3 mg HS PO 10/29/20 21:00 10/30/20 18:00 DC 10/29/20 20:04 Aspirin (Aspirin Enteric Coated) 81 mg DAILY PO 10/29/20 09:00 11/07/20 08:42 Calcium/Vitamin D (Oscal D 500mg/ 200uts) 1 tab DAILY PO 10/29/20 09:00 11/07/20 08:41 Carbamide Peroxide (Debrox) 2 drop DAILY AU 10/29/20 09:00 11/07/20 08:42 Carvedilol (Coreg) 6.25 mg BIDWMEALS PO 10/29/20 08:00 11/07/20 17:32 Famotidine (Pepcid) 20 mg BID PO 10/29/20 09:00 11/07/20 20:10 Finasteride (Proscar) 5 mg DAILY PO 10/29/20 09:00 11/07/20 08:41 Levothyroxine Sodium (Synthroid) 25 mcg DAILY06 PO 10/29/20 06:00 11/07/20 05:42 Lisinopril (Prinivil) 20 mg DAILY PO 10/29/20 09:00 11/07/20 08:41 Simvastatin (Zocor) 20 mg HS PO 10/29/20 21:00 11/07/20 20:11 Tizanidine HCl (Zanaflex) 2 mg PRN TID PRN PO MUSCLE SPASTICITY 10/29/20 02:15 10/30/20 22:11 Diclofenac Sodium (Voltaren) 75 mg BID PO 10/29/20 09:00 11/07/20 20:12 Lactulose (Lactulose) 20 gm BID PO 10/29/20 09:00 11/07/20 20:09 Nicotine Polacrilex (Nicorette Gum) 2 mg PRN Q1HR PRN BC SMOKING CESSATION 10/29/20 02:30 11/05/20 04:28 Oxybutynin Chloride (Ditropan) 5 mg BID PO 10/29/20 09:00 11/07/20 20:09 Olanzapine (ZyPREXA ZYDIS) 2.5 mg PRN Q2HR PRN PO PSYCHOSIS 10/29/20 02:45 Divalproex Sodium (Depakote Er) 1,000 mg HS PO 10/29/20 21:00 11/07/20 20:11 Olanzapine (ZyPREXA) 20 mg QHS PO 10/30/20 21:00 11/04/20 18:01 DC 11/03/20 20:02 Risperidone (RisperDAL) 3.5 mg HS PO 10/30/20 21:00 11/07/20 20:12 Mirtazapine (Remeron) 7.5 mg QHS PO 11/02/20 21:00 11/07/20 20:10 Olanzapine (ZyPREXA) 15 mg QHS PO 11/04/20 21:00 11/06/20 23:59 DC 11/06/20 20:08 Olanzapine (ZyPREXA) 10 mg QHS PO 11/07/20 21:00 11/09/20 23:59 11/07/20 20:10 Olanzapine (ZyPREXA) 5 mg QHS PO 11/10/20 21:00 11/12/20 23:59 Polyethylene Glycol (miraLAX) 17 gm PRN DAILY PRN PO 1ST CHOICE CONSTIPATION 11/05/20 14:00 Current Medications Medications (Trade) Dose Ordered Sig/Andie Route PRN Reason Start Time Stop Time Status Last Admin Dose Admin Olanzapine (ZyPREXA) 10 mg QHS PO 11/07/20 21:00 11/09/20 23:59 11/07/20 20:10 I have reviewed the current psychotropics carefully including drug interactions. Risk benefit ratio favors no change other than as noted in my dictated progress note. Diagnosis: Problems: (1) Impulse control disorder (2) Anxiety disorder, unspecified (3) Bipolar disorder, current episode mixed, severe, with psychotic features (4) Schizoaffective disorder, bipolar type CLAUDIA ZAVALA MD Nov 07, 2020 21:05
[2020-11-08] MEDS: LEVOTHYROXINE 25 MCG TABLET. PO SCH (05:32)
[2020-11-08 06:12] VITALS: BP 144/95
--- NOTE | 2020-11-08 08:25 | PDOC ---
Exam Note: Zackary Note: This note is a late entry for 11/07/2020 covers elements not covered in my initial note. Subjective: The patient was reviewed on telehealth rounds in the evening of 11/07/2020 with Zachary DEAN. Discussed with nursing staff, reviewed the chart. He slept just 7-1/4 hours previous night. The patient has been calm, pleasant. Denies any active hallucinations or not seeing any visual misperceptions from the corner of his eyes like he did a few days back. I met with him on telehealth rounds in the evening. Review of Systems: Ambulation impaired with walker. No CV, , pulmonary, eye system symptoms on review. Mental Status Exam: The patient was seen on telehealth rounds in his room. He is pleasant, cooperative, and appreciative of his care. Speech is coherent. Abstraction is fair. Computation impaired. Language function is intact. Mood and affect somewhat withdrawn. No active suicidal ideation. Laboratory Data: Reviewed. Impression: Bipolar 1 disorder mixed with psychotic features. History of schizoaffective disorder bipolar type. Anxiety disorder unspecified. Impulse control disorder unspecified. Plan: We discussed with him what adjustments we are making in his psychotropi cs, reducing to stop ultimately the Zyprexa, continuing the Risperdal which we may need to increase. Assessment: Vital Signs/I&O: Vital Signs Date Time Temp Pulse Resp B/P (MAP) Pulse Ox O2 Delivery O2 Flow Rate FiO2 11/08/20 06:12 97.2 65 18 144/95 (111) 99 Room Air I & O 11/07/20 11/07/20 11/08/20 15:00 23:00 07:00 Intake Total 840 ml 600 ml Balance 840 ml 600 ml Current Medications: Meds: Current Medications Medications (Trade) Dose Ordered Sig/Andie Route PRN Reason Start Time Stop Time Status Last Admin Dose Admin Acetaminophen (Tylenol) 650 mg PRN Q6HRS PRN PO MILD PAIN / TEMP > 100.3'F 10/29/20 00:30 Multi-Ingredient Ointment (Analgesic [place]) 1 anabel PRN QID PRN TP MUSCLE PAIN 10/29/20 00:30 Al Hydroxide/Mg Hydroxide (Mylanta Plus Xs) 15 ml PRN AFTMEALHC PRN PO DYSPEPSIA 10/29/20 00:30 Magnesium Hydroxide (Milk Of Magnesia) 2,400 mg PRN QHS PRN PO 2ND CHOICE CONSTIPATION 10/29/20 00:30 Nicotine (Nicoderm Cq 7mg Patch) 1 patch DAILY TD 10/29/20 09:00 10/29/20 10:16 DC Bupropion HCl (Wellbutrin Xl) 300 mg DAILY PO 10/29/20 09:00 11/07/20 08:41 Divalproex Sodium (Depakote Er) 500 mg HS PO 10/29/20 21:00 10/29/20 02:41 DC Trazodone HCl (Desyrel) 300 mg HS PO 10/29/20 21:00 11/07/20 20:09 Olanzapine (ZyPREXA) 30 mg QHS PO 10/29/20 21:00 10/30/20 18:00 DC 10/29/20 20:05 Risperidone (RisperDAL) 3 mg HS PO 10/29/20 21:00 10/30/20 18:00 DC 10/29/20 20:04 Aspirin (Aspirin Enteric Coated) 81 mg DAILY PO 10/29/20 09:00 11/07/20 08:42 Calcium/Vitamin D (Oscal D 500mg/ 200uts) 1 tab DAILY PO 10/29/20 09:00 11/07/20 08:41 Carbamide Peroxide (Debrox) 2 drop DAILY AU 10/29/20 09:00 11/07/20 08:42 Carvedilol (Coreg) 6.25 mg BIDWMEALS PO 10/29/20 08:00 11/07/20 17:32 Famotidine (Pepcid) 20 mg BID PO 10/29/20 09:00 11/07/20 20:10 Finasteride (Proscar) 5 mg DAILY PO 10/29/20 09:00 11/07/20 08:41 Levothyroxine Sodium (Synthroid) 25 mcg DAILY06 PO 10/29/20 06:00 11/08/20 05:32 Lisinopril (Prinivil) 20 mg DAILY PO 10/29/20 09:00 11/07/20 08:41 Simvastatin (Zocor) 20 mg HS PO 10/29/20 21:00 11/07/20 20:11 Tizanidine HCl (Zanaflex) 2 mg PRN TID PRN PO MUSCLE SPASTICITY 12/31/20 02:15 10/30/20 22:11 Diclofenac Sodium (Voltaren) 75 mg BID PO 10/29/20 09:00 11/07/20 20:12 Lactulose (Lactulose) 20 gm BID PO 10/29/20 09:00 11/07/20 20:09 Nicotine Polacrilex (Nicorette Gum) 2 mg PRN Q1HR PRN BC SMOKING CESSATION 10/29/20 02:30 11/05/20 04:28 Oxybutynin Chloride (Ditropan) 5 mg BID PO 10/29/20 09:00 11/07/20 20:09 Olanzapine (ZyPREXA ZYDIS) 2.5 mg PRN Q2HR PRN PO PSYCHOSIS 10/29/20 02:45 Divalproex Sodium (Depakote Er) 1,000 mg HS PO 10/29/20 21:00 11/07/20 20:11 Olanzapine (ZyPREXA) 20 mg QHS PO 10/30/20 21:00 11/04/20 18:01 DC 11/03/20 20:02 Risperidone (RisperDAL) 3.5 mg HS PO 10/30/20 21:00 11/07/20 20:12 Mirtazapine (Remeron) 7.5 mg QHS PO 11/02/20 21:00 11/07/20 20:10 Olanzapine (ZyPREXA) 15 mg QHS PO 11/04/20 21:00 11/06/20 23:59 DC 11/06/20 20:08 Olanzapine (ZyPREXA) 10 mg QHS PO 11/07/20 21:00 11/09/20 23:59 11/07/20 20:10 Olanzapine (ZyPREXA) 5 mg QHS PO 11/10/20 21:00 11/12/20 23:59 Polyethylene Glycol (miraLAX) 17 gm PRN DAILY PRN PO 1ST CHOICE CONSTIPATION 11/05/20 14:00 Current Medications Medications (Trade) Dose Ordered Sig/Andie Route PRN Reason Start Time Stop Time Status Last Admin Dose Admin Olanzapine (ZyPREXA) 10 mg QHS PO 11/07/20 21:00 11/09/20 23:59 11/07/20 20:10 I have reviewed the current psychotropics carefully including drug interactions. Risk benefit ratio favors no change other than as noted in my dictated progress note. Diagnosis: Problems: (1) Schizoaffective disorder, bipolar type (2) Bipolar disorder, current episode mixed, severe, with psychotic features (3) Impulse control disorder (4) Anxiety disorder, unspecified CLAUDIA ZAVALA MD Nov 08, 2020 08:25
[2020-11-08] MEDS: LISINOPRIL 20 MG TABLET PO SCH (08:43)
[2020-11-08] MEDS: CALCIUM CARB/VIT D3 500/200 TABLET PO SCH (08:43)
[2020-11-08] MEDS: FAMOTIDINE 20 MG TABLET PO SCH ×2 (08:43→20:17)
[2020-11-08] MEDS: ASPIRIN ENTERIC COATED 81 MG TABLET.DR. PO SCH (08:43)
[2020-11-08] MEDS: OXYBUTYNIN CHLORIDE 5 MG TABLET PO SCH ×2 (08:43→20:16)
[2020-11-08] MEDS: FINASTERIDE 5 MG TABLET. PO SCH (08:43)
[2020-11-08] MEDS: CARBAMIDE PEROXIDE 6.5% OTIC SOLUTION 15ML BOTTLE. AU SCH (08:44)
[2020-11-08] MEDS: DICLOFENAC SODIUM 25 MG TABLET.DR PO SCH ×2 (08:44→20:17)
[2020-11-08] MEDS: buPROPion XL 300 MG TAB.ER.24H. PO SCH (08:44)
[2020-11-08] MEDS: LACTULOSE 20 GM/30 ML SOLUTION. PO SCH ×2 (08:44→20:15)
[2020-11-08] MEDS: CARVEDILOL 6.25 MG TABLET PO SCH ×2 (08:44→16:57)
[2020-11-08 16:06] VITALS: BP 127/87
[2020-11-08] MEDS: OLANZapine 10 MG TABLET PO SCH (20:16)
[2020-11-08] MEDS: MIRTAZAPINE 7.5 MG TABLET. PO SCH (20:16)
[2020-11-08] MEDS: risperiDONE 1 MG TABLET. PO SCH (20:16)
[2020-11-08] MEDS: DIVALPROEX ER 500 MG TAB.ER.24H PO SCH (20:16)
[2020-11-08] MEDS: traZODone 100 MG TABLET. PO SCH (20:17)
[2020-11-08] MEDS: SIMVASTATIN 20 MG TABLET PO SCH (20:17)
--- NOTE | 2020-11-08 21:06 | PDOC ---
Exam Note: Zackary Note: Please also refer to the separate dictated note~for this date of service dictated separately.~Patient seen individually. Discussed the patient with Nursing staff reviewed the chart.~Reviewed interim history and current functioning. Reviewed vital signs,~Labs/ Radiology~and current medications noted below. Continue current treatment with the changes noted in the dictated addendum note Assessment: Vital Signs/I&O: Vital Signs Date Time Temp Pulse Resp B/P (MAP) Pulse Ox O2 Delivery O2 Flow Rate FiO2 11/08/20 16:57 74 127/87 11/08/20 16:06 97.8 18 98 11/08/20 06:12 Room Air I & O 11/07/20 11/07/20 11/08/20 14:59 22:59 06:59 Intake Total 840 ml 600 ml Balance 840 ml 600 ml Current Medications: Meds: Current Medications Medications (Trade) Dose Ordered Sig/Andie Route PRN Reason Start Time Stop Time Status Last Admin Dose Admin Acetaminophen (Tylenol) 650 mg PRN Q6HRS PRN PO MILD PAIN / TEMP > 100.3'F 10/29/20 00:30 Multi-Ingredient Ointment (Analgesic [place]) 1 anabel PRN QID PRN TP MUSCLE PAIN 10/29/20 00:30 Al Hydroxide/Mg Hydroxide (Mylanta Plus Xs) 15 ml PRN AFTMEALHC PRN PO DYSPEPSIA 10/29/20 00:30 Magnesium Hydroxide (Milk Of Magnesia) 2,400 mg PRN QHS PRN PO 2ND CHOICE CONSTIPATION 10/29/20 00:30 Nicotine (Nicoderm Cq 7mg Patch) 1 patch DAILY TD 10/29/20 09:00 10/29/20 10:16 DC Bupropion HCl (Wellbutrin Xl) 300 mg DAILY PO 10/29/20 09:00 11/08/20 08:44 Divalproex Sodium (Depakote Er) 500 mg HS PO 10/29/20 21:00 10/29/20 02:41 DC Trazodone HCl (Desyrel) 300 mg HS PO 10/29/20 21:00 11/08/20 20:17 Olanzapine (ZyPREXA) 30 mg QHS PO 10/29/20 21:00 10/30/20 18:00 DC 10/29/20 20:05 Risperidone (RisperDAL) 3 mg HS PO 10/29/20 21:00 10/30/20 18:00 DC 10/29/20 20:04 Aspirin (Aspirin Enteric Coated) 81 mg DAILY PO 10/29/20 09:00 11/08/20 08:43 Calcium/Vitamin D (Oscal D 500mg/ 200uts) 1 tab DAILY PO 10/29/20 09:00 11/08/20 08:43 Carbamide Peroxide (Debrox) 2 drop DAILY AU 10/29/20 09:00 11/08/20 08:44 Carvedilol (Coreg) 6.25 mg BIDWMEALS PO 10/29/20 08:00 11/08/20 16:57 Famotidine (Pepcid) 20 mg BID PO 10/29/20 09:00 11/08/20 20:17 Finasteride (Proscar) 5 mg DAILY PO 10/29/20 09:00 11/08/20 08:43 Levothyroxine Sodium (Synthroid) 25 mcg DAILY06 PO 10/29/20 06:00 11/08/20 05:32 Lisinopril (Prinivil) 20 mg DAILY PO 10/29/20 09:00 11/08/20 08:43 Simvastatin (Zocor) 20 mg HS PO 10/29/20 21:00 11/08/20 20:17 Tizanidine HCl (Zanaflex) 2 mg PRN TID PRN PO MUSCLE SPASTICITY 10/29/20 02:15 10/30/20 22:11 Diclofenac Sodium (Voltaren) 75 mg BID PO 10/29/20 09:00 11/08/20 20:17 Lactulose (Lactulose) 20 gm BID PO 10/29/20 09:00 11/08/20 20:15 Nicotine Polacrilex (Nicorette Gum) 2 mg PRN Q1HR PRN BC SMOKING CESSATION 10/29/20 02:30 11/05/20 04:28 Oxybutynin Chloride (Ditropan) 5 mg BID PO 10/29/20 09:00 11/08/20 20:16 Olanzapine (ZyPREXA ZYDIS) 2.5 mg PRN Q2HR PRN PO PSYCHOSIS 10/29/20 02:45 Divalproex Sodium (Depakote Er) 1,000 mg HS PO 10/29/20 21:00 11/08/20 20:16 Olanzapine (ZyPREXA) 20 mg QHS PO 10/30/20 21:00 11/04/20 18:01 DC 11/03/20 20:02 Risperidone (RisperDAL) 3.5 mg HS PO 10/30/20 21:00 11/08/20 20:16 Mirtazapine (Remeron) 7.5 mg QHS PO 11/02/20 21:00 11/08/20 20:16 Olanzapine (ZyPREXA) 15 mg QHS PO 11/04/20 21:00 11/06/20 23:59 DC 11/06/20 20:08 Olanzapine (ZyPREXA) 10 mg QHS PO 11/07/20 21:00 11/09/20 23:59 11/08/20 20:16 Olanzapine (ZyPREXA) 5 mg QHS PO 11/10/20 21:00 11/12/20 23:59 Polyethylene Glycol (miraLAX) 17 gm PRN DAILY PRN PO 1ST CHOICE CONSTIPATION 11/05/20 14:00 I have reviewed the current psychotropics carefully including drug interactions. Risk benefit ratio favors no change other than as noted in my dictated progress note. Diagnosis: Problems: (1) Schizoaffective disorder, mixed type (2) Bipolar disorder, current episode mixed, severe, with psychotic features (3) Impulse control disorder (4) Anxiety disorder, unspecified CLAUDIA ZAVALA MD Nov 08, 2020 21:06
[2020-11-09] MEDS: LEVOTHYROXINE 25 MCG TABLET. PO SCH (05:35)
[2020-11-09 05:49] VITALS: BP 142/87
[2020-11-09] MEDS: ASPIRIN ENTERIC COATED 81 MG TABLET.DR. PO SCH (07:39)
[2020-11-09] MEDS: FAMOTIDINE 20 MG TABLET PO SCH ×2 (07:39→21:24)
[2020-11-09] MEDS: LISINOPRIL 20 MG TABLET PO SCH (07:40)
[2020-11-09] MEDS: FINASTERIDE 5 MG TABLET. PO SCH (07:40)
[2020-11-09] MEDS: buPROPion XL 300 MG TAB.ER.24H. PO SCH (07:40)
[2020-11-09] MEDS: OXYBUTYNIN CHLORIDE 5 MG TABLET PO SCH ×2 (07:40→21:23)
[2020-11-09] MEDS: CARVEDILOL 6.25 MG TABLET PO SCH ×2 (07:41→17:00)
[2020-11-09] MEDS: LACTULOSE 20 GM/30 ML SOLUTION. PO SCH ×2 (07:41→21:23)
[2020-11-09] MEDS: CARBAMIDE PEROXIDE 6.5% OTIC SOLUTION 15ML BOTTLE. AU SCH (07:41)
[2020-11-09] MEDS: CALCIUM CARB/VIT D3 500/200 TABLET PO SCH (07:45)
[2020-11-09] MEDS: DICLOFENAC SODIUM 25 MG TABLET.DR PO SCH ×2 (07:48→21:24)
--- NOTE | 2020-11-09 07:53 | PDOC ---
Exam Note: Zackary Note: This note is a late entry for 11/08/2020 covers elements not covered in my initial note. Subjective: The patient was reviewed on telehealth rounds in the evening of 11/08/2020 with Zachary DEAN. Discussed with nursing staff, reviewed the chart. He slept just 7-3/4 hours previous night. The patient has had much better day. Denies any hallucinations. He was looking for a [employer] game but this is not till next week. He was able to accept this. Review of Systems: Ambulation impaired with walker. No CV, , pulmonary, eye system symptoms on review. Mental Status Exam: The patient was seen on telehealth rounds in his room. He is pleasant, cooperative. Speech is coherent. Abstraction is fair. Computation impaired. Language function is intact. Mood and affect somewhat withdrawn. No active suicidal ideation. Laboratory Data: Reviewed. Impression: Bipolar 1 disorder mixed with psychotic features. History of schizoaffective disorder bipolar type. Anxiety disorder unspecified. Impulse control disorder unspecified. Plan: We are gradually tapering the Zyprexa and we will compensate with Risperdal. Increase as clinically indicated. Assessment: Vital Signs/I&O: Vital Signs Date Time Temp Pulse Resp B/P (MAP) Pulse Ox O2 Delivery O2 Flow Rate FiO2 11/09/20 07:41 64 142/87 11/09/20 05:49 97.6 18 96 11/08/20 06:12 Room Air I & O 11/08/20 11/08/20 11/09/20 15:00 23:00 07:00 Intake Total 720 ml 240 ml 100 ml Balance 720 ml 240 ml 100 ml Current Medications: Meds: Current Medications Medications (Trade) Dose Ordered Sig/Andie Route PRN Reason Start Time Stop Time Status Last Admin Dose Admin Acetaminophen (Tylenol) 650 mg PRN Q6HRS PRN PO MILD PAIN / TEMP > 100.3'F 10/29/20 00:30 Multi-Ingredient Ointment (Analgesic [place]) 1 anabel PRN QID PRN TP MUSCLE PAIN 10/29/20 00:30 Al Hydroxide/Mg Hydroxide (Mylanta Plus Xs) 15 ml PRN AFTMEALHC PRN PO DYSPEPSIA 10/29/20 00:30 Magnesium Hydroxide (Milk Of Magnesia) 2,400 mg PRN QHS PRN PO 2ND CHOICE CONSTIPATION 10/29/20 00:30 Nicotine (Nicoderm Cq 7mg Patch) 1 patch DAILY TD 10/29/20 09:00 10/29/20 10:16 DC Bupropion HCl (Wellbutrin Xl) 300 mg DAILY PO 10/29/20 09:00 11/09/20 07:40 Divalproex Sodium (Depakote Er) 500 mg HS PO 10/29/20 21:00 10/29/20 02:41 DC Trazodone HCl (Desyrel) 300 mg HS PO 10/29/20 21:00 11/08/20 20:17 Olanzapine (ZyPREXA) 30 mg QHS PO 10/29/20 21:00 10/30/20 18:00 DC 10/29/20 20:05 Risperidone (RisperDAL) 3 mg HS PO 10/29/20 21:00 10/30/20 18:00 DC 10/29/20 20:04 Aspirin (Aspirin Enteric Coated) 81 mg DAILY PO 10/29/20 09:00 11/09/20 07:39 Calcium/Vitamin D (Oscal D 500mg/ 200uts) 1 tab DAILY PO 10/29/20 09:00 11/09/20 07:45 Carbamide Peroxide (Debrox) 2 drop DAILY AU 10/29/20 09:00 11/09/20 07:41 Carvedilol (Coreg) 6.25 mg BIDWMEALS PO 10/29/20 08:00 11/09/20 07:41 Famotidine (Pepcid) 20 mg BID PO 10/29/20 09:00 11/09/20 07:39 Finasteride (Proscar) 5 mg DAILY PO 10/29/20 09:00 11/09/20 07:40 Levothyroxine Sodium (Synthroid) 25 mcg DAILY06 PO 10/29/20 06:00 11/09/20 05:35 Lisinopril (Prinivil) 20 mg DAILY PO 10/29/20 09:00 11/09/20 07:40 Simvastatin (Zocor) 20 mg HS PO 10/29/20 21:00 11/08/20 20:17 Tizanidine HCl (Zanaflex) 2 mg PRN TID PRN PO MUSCLE SPASTICITY 10/29/20 02:15 10/30/20 22:11 Diclofenac Sodium (Voltaren) 75 mg BID PO 10/29/20 09:00 11/09/20 07:48 Lactulose (Lactulose) 20 gm BID PO 10/29/20 09:00 11/09/20 07:41 Nicotine Polacrilex (Nicorette Gum) 2 mg PRN Q1HR PRN BC SMOKING CESSATION 10/29/20 02:30 11/05/20 04:28 Oxybutynin Chloride (Ditropan) 5 mg BID PO 10/29/20 09:00 11/09/20 07:40 Olanzapine (ZyPREXA ZYDIS) 2.5 mg PRN Q2HR PRN PO PSYCHOSIS 10/29/20 02:45 Divalproex Sodium (Depakote Er) 1,000 mg HS PO 10/29/20 21:00 11/08/20 20:16 Olanzapine (ZyPREXA) 20 mg QHS PO 10/30/20 21:00 11/04/20 18:01 DC 11/03/20 20:02 Risperidone (RisperDAL) 3.5 mg HS PO 10/30/20 21:00 11/08/20 20:16 Mirtazapine (Remeron) 7.5 mg QHS PO 11/02/20 21:00 11/08/20 20:16 Olanzapine (ZyPREXA) 15 mg QHS PO 11/04/20 21:00 11/06/20 23:59 DC 11/06/20 20:08 Olanzapine (ZyPREXA) 10 mg QHS PO 11/07/20 21:00 11/09/20 23:59 11/08/20 20:16 Olanzapine (ZyPREXA) 5 mg QHS PO 11/10/20 21:00 11/12/20 23:59 Polyethylene Glycol (miraLAX) 17 gm PRN DAILY PRN PO 1ST CHOICE CONSTIPATION 11/05/20 14:00 I have reviewed the current psychotropics carefully including drug interactions. Risk benefit ratio favors no change other than as noted in my dictated progress note. Diagnosis: Problems: (1) Bipolar disorder, current episode mixed, severe, with psychotic features (2) Impulse control disorder (3) Anxiety disorder, unspecified (4) Schizoaffective disorder, bipolar type CLAUDIA ZAVALA MD Nov 09, 2020 07:53
[2020-11-09 16:01] VITALS: BP 153/94
--- NOTE | 2020-11-09 21:12 | PDOC ---
Exam Note: Zackary Note: Please also refer to the separate dictated note~for this date of service dictated separately.~Patient seen individually. Discussed the patient with Nursing staff reviewed the chart.~Reviewed interim history and current functioning. Reviewed vital signs,~Labs/ Radiology~and current medications noted below. Continue current treatment with the changes noted in the dictated addendum note Assessment: Vital Signs/I&O: Vital Signs Date Time Temp Pulse Resp B/P (MAP) Pulse Ox O2 Delivery O2 Flow Rate FiO2 11/09/20 17:00 76 153/94 11/09/20 16:01 97.8 16 94 11/08/20 06:12 Room Air I & O 11/08/20 11/08/20 11/09/20 15:00 23:00 07:00 Intake Total 720 ml 240 ml 100 ml Balance 720 ml 240 ml 100 ml Current Medications: Meds: Current Medications Medications (Trade) Dose Ordered Sig/Andie Route PRN Reason Start Time Stop Time Status Last Admin Dose Admin Acetaminophen (Tylenol) 650 mg PRN Q6HRS PRN PO MILD PAIN / TEMP > 100.3'F 10/29/20 00:30 Multi-Ingredient Ointment (Analgesic [place]) 1 anabel PRN QID PRN TP MUSCLE PAIN 10/29/20 00:30 Al Hydroxide/Mg Hydroxide (Mylanta Plus Xs) 15 ml PRN AFTMEALHC PRN PO DYSPEPSIA 10/29/20 00:30 Magnesium Hydroxide (Milk Of Magnesia) 2,400 mg PRN QHS PRN PO 2ND CHOICE CONSTIPATION 10/29/20 00:30 Nicotine (Nicoderm Cq 7mg Patch) 1 patch DAILY TD 10/29/20 09:00 10/29/20 10:16 DC Bupropion HCl (Wellbutrin Xl) 300 mg DAILY PO 10/29/20 09:00 11/09/20 07:40 Divalproex Sodium (Depakote Er) 500 mg HS PO 10/29/20 21:00 10/29/20 02:41 DC Trazodone HCl (Desyrel) 300 mg HS PO 10/29/20 21:00 11/08/20 20:17 Olanzapine (ZyPREXA) 30 mg QHS PO 10/29/20 21:00 10/30/20 18:00 DC 10/29/20 20:05 Risperidone (RisperDAL) 3 mg HS PO 10/29/20 21:00 10/30/20 18:00 DC 10/29/20 20:04 Aspirin (Aspirin Enteric Coated) 81 mg DAILY PO 10/29/20 09:00 11/09/20 07:39 Calcium/Vitamin D (Oscal D 500mg/ 200uts) 1 tab DAILY PO 10/29/20 09:00 11/09/20 07:45 Carbamide Peroxide (Debrox) 2 drop DAILY AU 10/29/20 09:00 11/09/20 07:41 Carvedilol (Coreg) 6.25 mg BIDWMEALS PO 10/29/20 08:00 11/09/20 17:00 Famotidine (Pepcid) 20 mg BID PO 10/29/20 09:00 11/09/20 07:39 Finasteride (Proscar) 5 mg DAILY PO 10/29/20 09:00 11/09/20 07:40 Levothyroxine Sodium (Synthroid) 25 mcg DAILY06 PO 10/29/20 06:00 11/09/20 05:35 Lisinopril (Prinivil) 20 mg DAILY PO 10/29/20 09:00 11/09/20 07:40 Simvastatin (Zocor) 20 mg HS PO 10/29/20 21:00 11/08/20 20:17 Tizanidine HCl (Zanaflex) 2 mg PRN TID PRN PO MUSCLE SPASTICITY 10/29/20 02:15 10/30/20 22:11 Diclofenac Sodium (Voltaren) 75 mg BID PO 10/29/20 09:00 11/09/20 07:48 Lactulose (Lactulose) 20 gm BID PO 10/29/20 09:00 11/09/20 07:41 Nicotine Polacrilex (Nicorette Gum) 2 mg PRN Q1HR PRN BC SMOKING CESSATION 10/29/20 02:30 11/05/20 04:28 Oxybutynin Chloride (Ditropan) 5 mg BID PO 10/29/20 09:00 11/09/20 07:40 Olanzapine (ZyPREXA ZYDIS) 2.5 mg PRN Q2HR PRN PO PSYCHOSIS 10/29/20 02:45 Divalproex Sodium (Depakote Er) 1,000 mg HS PO 10/29/20 21:00 11/08/20 20:16 Olanzapine (ZyPREXA) 20 mg QHS PO 10/30/20 21:00 11/04/20 18:01 DC 11/03/20 20:02 Risperidone (RisperDAL) 3.5 mg HS PO 10/30/20 21:00 11/08/20 20:16 Mirtazapine (Remeron) 7.5 mg QHS PO 11/02/20 21:00 11/09/20 17:41 DC 11/08/20 20:16 Olanzapine (ZyPREXA) 15 mg QHS PO 11/04/20 21:00 11/06/20 23:59 DC 11/06/20 20:08 Olanzapine (ZyPREXA) 10 mg QHS PO 11/07/20 21:00 11/09/20 23:59 11/08/20 20:16 Olanzapine (ZyPREXA) 5 mg QHS PO 11/10/20 21:00 11/12/20 23:59 Polyethylene Glycol (miraLAX) 17 gm PRN DAILY PRN PO 1ST CHOICE CONSTIPATION 11/05/20 14:00 Mirtazapine (Remeron) 15 mg QHS PO 11/09/20 21:00 I have reviewed the current psychotropics carefully including drug interactions. Risk benefit ratio favors no change other than as noted in my dictated progress note. Diagnosis: Problems: (1) Bipolar disorder, current episode mixed, severe, with psychotic features (2) Anxiety disorder, unspecified (3) Impulse control disorder (4) Schizoaffective disorder, bipolar type CLAUDIA ZAVALA MD Nov 09, 2020 21:12
[2020-11-09] MEDS: traZODone 100 MG TABLET. PO SCH (21:23)
[2020-11-09] MEDS: DIVALPROEX ER 500 MG TAB.ER.24H PO SCH (21:23)
[2020-11-09] MEDS: OLANZapine 10 MG TABLET PO SCH (21:24)
[2020-11-09] MEDS: risperiDONE 1 MG TABLET. PO SCH (21:24)
[2020-11-09] MEDS: MIRTAZAPINE 15 MG TABLET PO SCH (21:24)
[2020-11-09] MEDS: SIMVASTATIN 20 MG TABLET PO SCH (21:25)
[2020-11-10] MEDS: LEVOTHYROXINE 25 MCG TABLET. PO SCH (05:25)
[2020-11-10 05:41] VITALS: BP_SYST 132; BP_SYST 150; BP_DIAS 82; BP_DIAS 91
--- NOTE | 2020-11-10 08:28 | PDOC ---
Exam Note: Zackary Note: This note is a late entry for 11/09/2020 covers elements not covered in my initial note. Subjective: The patient was reviewed on telehealth rounds in the evening of 11/09/2020 with Corinna DEAN. Discussed with nursing staff, reviewed the chart. He slept 8-1/2 hours previous night. The patient remains somewhat withdrawn. Denies any hallucinations. Review of Systems: Ambulation impaired with walker. No CV, , pulmonary, eye system symptoms on review. Mental Status Exam: The patient was seen on telehealth rounds in his room. He is pleasant, verbal, interactive. Speech is coherent. Abstraction is fair. Computation impaired. Language function is intact. Mood and affect somewhat wi thdrawn. No suicidal or homicidal ideation. Laboratory Data: Reviewed. Impression: Bipolar 1 disorder mixed with psychotic features. History of schizoaffective disorder bipolar type. Anxiety disorder unspecified. Impulse control disorder unspecified. Plan: Continue psychotropics from initial note. Increase Remeron from 7.5 mg h.s. to 15 mg h.s. Assessment: Vital Signs/I&O: Vital Signs Date Time Temp Pulse Resp B/P (MAP) Pulse Ox O2 Delivery O2 Flow Rate FiO2 11/10/20 05:41 98.1 67 20 132/91 (105) 99 Room Air I & O 11/09/20 11/09/20 11/10/20 15:00 23:00 07:00 Intake Total 840 ml 700 ml Balance 840 ml 700 ml Current Medications: Meds: Current Medications Medications (Trade) Dose Ordered Sig/Andie Route PRN Reason Start Time Stop Time Status Last Admin Dose Admin Acetaminophen (Tylenol) 650 mg PRN Q6HRS PRN PO MILD PAIN / TEMP > 100.3'F 10/29/20 00:30 Multi-Ingredient Ointment (Analgesic [place]) 1 anabel PRN QID PRN TP MUSCLE PAIN 10/29/20 00:30 Al Hydroxide/Mg Hydroxide (Mylanta Plus Xs) 15 ml PRN AFTMEALHC PRN PO DYSPEPSIA 10/29/20 00:30 Magnesium Hydroxide (Milk Of Magnesia) 2,400 mg PRN QHS PRN PO 2ND CHOICE CONSTIPATION 10/29/20 00:30 Nicotine (Nicoderm Cq 7mg Patch) 1 patch DAILY TD 10/29/20 09:00 10/29/20 10:16 DC Bupropion HCl (Wellbutrin Xl) 300 mg DAILY PO 10/29/20 09:00 11/09/20 07:40 Divalproex Sodium (Depakote Er) 500 mg HS PO 10/29/20 21:00 10/29/20 02:41 DC Trazodone HCl (Desyrel) 300 mg HS PO 10/29/20 21:00 11/09/20 21:23 Olanzapine (ZyPREXA) 30 mg QHS PO 10/29/20 21:00 10/30/20 18:00 DC 10/29/20 20:05 Risperidone (RisperDAL) 3 mg HS PO 10/29/20 21:00 10/30/20 18:00 DC 10/29/20 20:04 Aspirin (Aspirin Enteric Coated) 81 mg DAILY PO 10/29/20 09:00 11/09/20 07:39 Calcium/Vitamin D (Oscal D 500mg/ 200uts) 1 tab DAILY PO 10/29/20 09:00 11/09/20 07:45 Carbamide Peroxide (Debrox) 2 drop DAILY AU 10/29/20 09:00 11/09/20 07:41 Carvedilol (Coreg) 6.25 mg BIDWMEALS PO 10/29/20 08:00 11/09/20 17:00 Famotidine (Pepcid) 20 mg BID PO 10/29/20 09:00 11/09/20 21:24 Finasteride (Proscar) 5 mg DAILY PO 10/29/20 09:00 11/09/20 07:40 Levothyroxine Sodium (Synthroid) 25 mcg DAILY06 PO 10/29/20 06:00 11/10/20 05:25 Lisinopril (Prinivil) 20 mg DAILY PO 10/29/20 09:00 11/09/20 07:40 Simvastatin (Zocor) 20 mg HS PO 10/29/20 21:00 11/09/20 21:25 Tizanidine HCl (Zanaflex) 2 mg PRN TID PRN PO MUSCLE SPASTICITY 10/29/20 02:15 10/30/20 22:11 Diclofenac Sodium (Voltaren) 75 mg BID PO 10/29/20 09:00 11/09/20 21:24 Lactulose (Lactulose) 20 gm BID PO 10/29/20 09:00 11/09/20 21:23 Nicotine Polacrilex (Nicorette Gum) 2 mg PRN Q1HR PRN BC SMOKING CESSATION 10/29/20 02:30 11/05/20 04:28 Oxybutynin Chloride (Ditropan) 5 mg BID PO 10/29/20 09:00 11/09/20 21:23 Olanzapine (ZyPREXA ZYDIS) 2.5 mg PRN Q2HR PRN PO PSYCHOSIS 10/29/20 02:45 Divalproex Sodium (Depakote Er) 1,000 mg HS PO 10/29/20 21:00 11/09/20 21:23 Olanzapine (ZyPREXA) 20 mg QHS PO 10/30/20 21:00 11/04/20 18:01 DC 11/03/20 20:02 Risperidone (RisperDAL) 3.5 mg HS PO 10/30/20 21:00 11/09/20 21:24 Mirtazapine (Remeron) 7.5 mg QHS PO 11/02/20 21:00 11/09/20 17:41 DC 11/08/20 20:16 Olanzapine (ZyPREXA) 15 mg QHS PO 11/04/20 21:00 11/06/20 23:59 DC 11/06/20 20:08 Olanzapine (ZyPREXA) 10 mg QHS PO 11/07/20 21:00 11/09/20 23:59 DC 11/09/20 21:24 Olanzapine (ZyPREXA) 5 mg QHS PO 11/10/20 21:00 11/12/20 23:59 Polyethylene Glycol (miraLAX) 17 gm PRN DAILY PRN PO 1ST CHOICE CONSTIPATION 11/05/20 14:00 Mirtazapine (Remeron) 15 mg QHS PO 11/09/20 21:00 11/09/20 21:24 Current Medications Medications (Trade) Dose Ordered Sig/Andie Route PRN Reason Start Time Stop Time Status Last Admin Dose Admin Mirtazapine (Remeron) 15 mg QHS PO 11/09/20 21:00 11/09/20 21:24 I have reviewed the current psychotropics carefully including drug interactions. Risk benefit ratio favors no change other than as noted in my dictated progress note. Diagnosis: Problems: (1) Bipolar disorder, current episode mixed, severe, with psychotic features (2) Impulse control disorder (3) Anxiety disorder, unspecified (4) Schizoaffective disorder, bipolar type CLAUDIA ZAVALA MD Nov 10, 2020 08:28
[2020-11-10] MEDS: LACTULOSE 20 GM/30 ML SOLUTION. PO SCH ×2 (08:45→20:48)
[2020-11-10] MEDS: LISINOPRIL 20 MG TABLET PO SCH (08:45)
[2020-11-10] MEDS: CALCIUM CARB/VIT D3 500/200 TABLET PO SCH (08:45)
[2020-11-10] MEDS: buPROPion XL 300 MG TAB.ER.24H. PO SCH (08:45)
[2020-11-10] MEDS: FINASTERIDE 5 MG TABLET. PO SCH (08:45)
[2020-11-10] MEDS: FAMOTIDINE 20 MG TABLET PO SCH ×2 (08:45→20:49)
[2020-11-10] MEDS: ASPIRIN ENTERIC COATED 81 MG TABLET.DR. PO SCH (08:46)
[2020-11-10] MEDS: CARVEDILOL 6.25 MG TABLET PO SCH ×2 (08:46→17:02)
[2020-11-10] MEDS: OXYBUTYNIN CHLORIDE 5 MG TABLET PO SCH ×2 (08:46→20:49)
[2020-11-10] MEDS: DICLOFENAC SODIUM 25 MG TABLET.DR PO SCH ×2 (08:47→20:48)
[2020-11-10] MEDS: CARBAMIDE PEROXIDE 6.5% OTIC SOLUTION 15ML BOTTLE. AU SCH (08:49)
[2020-11-10 15:45] VITALS: BP 138/92
[2020-11-10] MEDS: OLANZapine 5 MG TABLET PO SCH (20:48)
[2020-11-10] MEDS: risperiDONE 1 MG TABLET. PO SCH (20:48)
[2020-11-10] MEDS: DIVALPROEX ER 500 MG TAB.ER.24H PO SCH (20:49)
[2020-11-10] MEDS: traZODone 100 MG TABLET. PO SCH (20:49)
[2020-11-10] MEDS: MIRTAZAPINE 15 MG TABLET PO SCH (20:49)
[2020-11-10] MEDS: SIMVASTATIN 20 MG TABLET PO SCH (20:49)
--- NOTE | 2020-11-10 21:15 | PDOC ---
Exam Note: Zackary Note: Please also refer to the separate dictated note~for this date of service dictated separately.~Patient seen individually. Discussed the patient with Nursing staff reviewed the chart.~Reviewed interim history and current functioning. Reviewed vital signs,~Labs/ Radiology~and current medications noted below. Continue current treatment with the changes noted in the dictated addendum note Assessment: Vital Signs/I&O: Vital Signs Date Time Temp Pulse Resp B/P (MAP) Pulse Ox O2 Delivery O2 Flow Rate FiO2 11/10/20 17:02 72 138/92 11/10/20 15:45 97.7 20 98 Room Air I & O 11/09/20 11/09/20 11/10/20 15:00 23:00 07:00 Intake Total 840 ml 700 ml Balance 840 ml 700 ml Current Medications: Meds: Current Medications Medications (Trade) Dose Ordered Sig/Andie Route PRN Reason Start Time Stop Time Status Last Admin Dose Admin Acetaminophen (Tylenol) 650 mg PRN Q6HRS PRN PO MILD PAIN / TEMP > 100.3'F 10/29/20 00:30 Multi-Ingredient Ointment (Analgesic [place]) 1 anabel PRN QID PRN TP MUSCLE PAIN 10/29/20 00:30 Al Hydroxide/Mg Hydroxide (Mylanta Plus Xs) 15 ml PRN AFTMEALHC PRN PO DYSPEPSIA 10/29/20 00:30 Magnesium Hydroxide (Milk Of Magnesia) 2,400 mg PRN QHS PRN PO 2ND CHOICE CONSTIPATION 10/29/20 00:30 Nicotine (Nicoderm Cq 7mg Patch) 1 patch DAILY TD 10/29/20 09:00 10/29/20 10:16 DC Bupropion HCl (Wellbutrin Xl) 300 mg DAILY PO 10/29/20 09:00 11/10/20 08:45 Divalproex Sodium (Depakote Er) 500 mg HS PO 10/29/20 21:00 10/29/20 02:41 DC Trazodone HCl (Desyrel) 300 mg HS PO 10/29/20 21:00 11/10/20 20:49 Olanzapine (ZyPREXA) 30 mg QHS PO 10/29/20 21:00 10/30/20 18:00 DC 10/29/20 20:05 Risperidone (RisperDAL) 3 mg HS PO 10/29/20 21:00 10/30/20 18:00 DC 10/29/20 20:04 Aspirin (Aspirin Enteric Coated) 81 mg DAILY PO 10/29/20 09:00 11/10/20 08:46 Calcium/Vitamin D (Oscal D 500mg/ 200uts) 1 tab DAILY PO 10/29/20 09:00 11/10/20 08:45 Carbamide Peroxide (Debrox) 2 drop DAILY AU 10/29/20 09:00 11/09/20 07:41 Carvedilol (Coreg) 6.25 mg BIDWMEALS PO 10/29/20 08:00 11/10/20 17:02 Famotidine (Pepcid) 20 mg BID PO 10/29/20 09:00 11/10/20 20:49 Finasteride (Proscar) 5 mg DAILY PO 10/29/20 09:00 11/10/20 08:45 Levothyroxine Sodium (Synthroid) 25 mcg DAILY06 PO 10/29/20 06:00 11/10/20 05:25 Lisinopril (Prinivil) 20 mg DAILY PO 10/29/20 09:00 11/10/20 08:45 Simvastatin (Zocor) 20 mg HS PO 10/29/20 21:00 11/10/20 20:49 Tizanidine HCl (Zanaflex) 2 mg PRN TID PRN PO MUSCLE SPASTICITY 10/29/20 02:15 10/30/20 22:11 Diclofenac Sodium (Voltaren) 75 mg BID PO 10/29/20 09:00 11/10/20 20:48 Lactulose (Lactulose) 20 gm BID PO 10/29/20 09:00 11/10/20 20:48 Nicotine Polacrilex (Nicorette Gum) 2 mg PRN Q1HR PRN BC SMOKING CESSATION 10/29/20 02:30 11/05/20 04:28 Oxybutynin Chloride (Ditropan) 5 mg BID PO 10/29/20 09:00 11/10/20 20:49 Olanzapine (ZyPREXA ZYDIS) 2.5 mg PRN Q2HR PRN PO PSYCHOSIS 10/29/20 02:45 Divalproex Sodium (Depakote Er) 1,000 mg HS PO 10/29/20 21:00 11/10/20 20:49 Olanzapine (ZyPREXA) 20 mg QHS PO 10/30/20 21:00 11/04/20 18:01 DC 11/03/20 20:02 Risperidone (RisperDAL) 3.5 mg HS PO 10/30/20 21:00 11/10/20 20:48 Mirtazapine (Remeron) 7.5 mg QHS PO 11/02/20 21:00 11/09/20 17:41 DC 11/08/20 20:16 Olanzapine (ZyPREXA) 15 mg QHS PO 11/04/20 21:00 11/06/20 23:59 DC 11/06/20 20:08 Olanzapine (ZyPREXA) 10 mg QHS PO 11/07/20 21:00 11/09/20 23:59 DC 11/09/20 21:24 Olanzapine (ZyPREXA) 5 mg QHS PO 11/10/20 21:00 11/12/20 23:59 11/10/20 20:48 Polyethylene Glycol (miraLAX) 17 gm PRN DAILY PRN PO 1ST CHOICE CONSTIPATION 11/05/20 14:00 Mirtazapine (Remeron) 15 mg QHS PO 11/09/20 21:00 11/10/20 20:49 Current Medications Medications (Trade) Dose Ordered Sig/Andie Route PRN Reason Start Time Stop Time Status Last Admin Dose Admin Olanzapine (ZyPREXA) 5 mg QHS PO 11/10/20 21:00 11/12/20 23:59 11/10/20 20:48 I have reviewed the current psychotropics carefully including drug interactions. Risk benefit ratio favors no change other than as noted in my dictated progress note. Diagnosis: Problems: (1) Bipolar disorder, current episode mixed, severe, with psychotic features (2) Impulse control disorder (3) Anxiety disorder, unspecified (4) Schizoaffective disorder, bipolar type CLAUDIA ZAVALA MD Nov 10, 2020 21:15
[2020-11-11 05:37] VITALS: BP 148/91
[2020-11-11] MEDS: LEVOTHYROXINE 25 MCG TABLET. PO SCH (06:12)
--- NOTE | 2020-11-11 08:12 | PDOC ---
Exam Note: Zackary Note: This note is a late entry for 11/10/2020 covers elements not covered in my initial note. Subjective: The patient was reviewed on telehealth rounds in the evening of 11/10/2020 with Yana DEAN. Discussed with nursing staff, reviewed the chart. He slept 8-1/2 hours previous night. Overall the patient has done better. He does complain of some light-headedness, dizziness. Nursing staff will check his orthostatic blood pressures. He slept better previous night. Review of Systems: Ambulation impaired with walker. No CV, , pulmonary, eye system symptoms on review. Mental Status Exam: The patient was seen on telehealth rounds in his room. He is reasonably oriented. Often response is monosyllabic. Abstraction is fair. Computation impaired. Language function is intact. Mood and affect withdrawn. Laboratory Data: Reviewed. Impression: Bipolar 1 disorder mixed with psychotic features. History of schizoaffective disorder bipolar type. Anxiety disorder unspecified. Impulse control disorder unspecified. Plan: Continue psychotropics from initial note. Zyprexa will be reduced to 5 mg a day on 11/11. Continue Wellbutrin, Depakote, Risperdal, trazodone, Remeron as before. Assessment: Vital Signs/I&O: Vital Signs Date Time Temp Pulse Resp B/P (MAP) Pulse Ox O2 Delivery O2 Flow Rate FiO2 11/11/20 05:37 97.2 60 16 148/91 (110) 96 11/10/20 15:45 Room Air I & O 11/10/20 11/10/20 11/11/20 15:00 23:00 07:00 Intake Total 960 ml 460 ml Balance 960 ml 460 ml Current Medications: Meds: Current Medications Medications (Trade) Dose Ordered Sig/Andie Route PRN Reason Start Time Stop Time Status Last Admin Dose Admin Acetaminophen (Tylenol) 650 mg PRN Q6HRS PRN PO MILD PAIN / TEMP > 100.3'F 10/29/20 00:30 Multi-Ingredient Ointment (Analgesic [place]) 1 anabel PRN QID PRN TP MUSCLE PAIN 10/29/20 00:30 Al Hydroxide/Mg Hydroxide (Mylanta Plus Xs) 15 ml PRN AFTMEALHC PRN PO DYSPEPSIA 10/29/20 00:30 Magnesium Hydroxide (Milk Of Magnesia) 2,400 mg PRN QHS PRN PO 2ND CHOICE CONSTIPATION 10/29/20 00:30 Nicotine (Nicoderm Cq 7mg Patch) 1 patch DAILY TD 10/29/20 09:00 10/29/20 10:16 DC Bupropion HCl (Wellbutrin Xl) 300 mg DAILY PO 10/29/20 09:00 11/10/20 08:45 Divalproex Sodium (Depakote Er) 500 mg HS PO 10/29/20 21:00 10/29/20 02:41 DC Trazodone HCl (Desyrel) 300 mg HS PO 10/29/20 21:00 11/10/20 20:49 Olanzapine (ZyPREXA) 30 mg QHS PO 10/29/20 21:00 10/30/20 18:00 DC 10/29/20 20:05 Risperidone (RisperDAL) 3 mg HS PO 10/29/20 21:00 10/30/20 18:00 DC 10/29/20 20:04 Aspirin (Aspirin Enteric Coated) 81 mg DAILY PO 10/29/20 09:00 11/10/20 08:46 Calcium/Vitamin D (Oscal D 500mg/ 200uts) 1 tab DAILY PO 10/29/20 09:00 11/10/20 08:45 Carbamide Peroxide (Debrox) 2 drop DAILY AU 10/29/20 09:00 11/09/20 07:41 Carvedilol (Coreg) 6.25 mg BIDWMEALS PO 10/29/20 08:00 11/10/20 17:02 Famotidine (Pepcid) 20 mg BID PO 10/29/20 09:00 11/10/20 20:49 Finasteride (Proscar) 5 mg DAILY PO 10/29/20 09:00 11/10/20 08:45 Levothyroxine Sodium (Synthroid) 25 mcg DAILY06 PO 10/29/20 06:00 11/11/20 06:12 Lisinopril (Prinivil) 20 mg DAILY PO 10/29/20 09:00 11/10/20 08:45 Simvastatin (Zocor) 20 mg HS PO 10/29/20 21:00 11/10/20 20:49 Tizanidine HCl (Zanaflex) 2 mg PRN TID PRN PO MUSCLE SPASTICITY 10/29/20 02:15 10/30/20 22:11 Diclofenac Sodium (Voltaren) 75 mg BID PO 10/29/20 09:00 11/10/20 20:48 Lactulose (Lactulose) 20 gm BID PO 10/29/20 09:00 11/10/20 20:48 Nicotine Polacrilex (Nicorette Gum) 2 mg PRN Q1HR PRN BC SMOKING CESSATION 10/29/20 02:30 11/05/20 04:28 Oxybutynin Chloride (Ditropan) 5 mg BID PO 10/29/20 09:00 11/10/20 20:49 Olanzapine (ZyPREXA ZYDIS) 2.5 mg PRN Q2HR PRN PO PSYCHOSIS 10/29/20 02:45 Divalproex Sodium (Depakote Er) 1,000 mg HS PO 10/29/20 21:00 11/10/20 20:49 Olanzapine (ZyPREXA) 20 mg QHS PO 10/30/20 21:00 11/04/20 18:01 DC 11/03/20 20:02 Risperidone (RisperDAL) 3.5 mg HS PO 10/30/20 21:00 11/10/20 20:48 Mirtazapine (Remeron) 7.5 mg QHS PO 11/02/20 21:00 11/09/20 17:41 DC 11/08/20 20:16 Olanzapine (ZyPREXA) 15 mg QHS PO 11/04/20 21:00 11/06/20 23:59 DC 11/06/20 20:08 Olanzapine (ZyPREXA) 10 mg QHS PO 11/07/20 21:00 11/09/20 23:59 DC 11/09/20 21:24 Olanzapine (ZyPREXA) 5 mg QHS PO 11/10/20 21:00 11/12/20 23:59 11/10/20 20:48 Polyethylene Glycol (miraLAX) 17 gm PRN DAILY PRN PO 1ST CHOICE CONSTIPATION 11/05/20 14:00 Mirtazapine (Remeron) 15 mg QHS PO 11/09/20 21:00 11/10/20 20:49 Current Medications Medications (Trade) Dose Ordered Sig/Andie Route PRN Reason Start Time Stop Time Status Last Admin Dose Admin Olanzapine (ZyPREXA) 5 mg QHS PO 11/10/20 21:00 11/12/20 23:59 11/10/20 20:48 I have reviewed the current psychotropics carefully including drug interactions. Risk benefit ratio favors no change other than as noted in my dictated progress note. Diagnosis: Problems: (1) Bipolar disorder, current episode mixed, severe, with psychotic features (2) Impulse control disorder (3) Schizoaffective disorder, bipolar type (4) Anxiety disorder, unspecified CLAUDIA ZAVALA MD Nov 11, 2020 08:12
[2020-11-11] MEDS: DICLOFENAC SODIUM 25 MG TABLET.DR PO SCH ×2 (08:55→20:01)
[2020-11-11] MEDS: LISINOPRIL 20 MG TABLET PO SCH (08:56)
[2020-11-11] MEDS: FAMOTIDINE 20 MG TABLET PO SCH ×2 (08:56→20:00)
[2020-11-11] MEDS: buPROPion XL 300 MG TAB.ER.24H. PO SCH (08:56)
[2020-11-11] MEDS: CARVEDILOL 6.25 MG TABLET PO SCH ×2 (08:57→17:23)
[2020-11-11] MEDS: CARBAMIDE PEROXIDE 6.5% OTIC SOLUTION 15ML BOTTLE. AU SCH (09:00)
[2020-11-11] MEDS: CALCIUM CARB/VIT D3 500/200 TABLET PO SCH (09:00)
[2020-11-11] MEDS: ASPIRIN ENTERIC COATED 81 MG TABLET.DR. PO SCH (09:01)
[2020-11-11] MEDS: FINASTERIDE 5 MG TABLET. PO SCH (09:01)
[2020-11-11] MEDS: OXYBUTYNIN CHLORIDE 5 MG TABLET PO SCH ×2 (09:01→20:00)
[2020-11-11] MEDS: LACTULOSE 20 GM/30 ML SOLUTION. PO SCH ×2 (09:02→20:00)
[2020-11-11 15:43] VITALS: BP 144/89
[2020-11-11] MEDS: traZODone 100 MG TABLET. PO SCH (20:00)
[2020-11-11] MEDS: SIMVASTATIN 20 MG TABLET PO SCH (20:00)
[2020-11-11] MEDS: risperiDONE 1 MG TABLET. PO SCH (20:01)
[2020-11-11] MEDS: MIRTAZAPINE 15 MG TABLET PO SCH (20:01)
[2020-11-11] MEDS: DIVALPROEX ER 500 MG TAB.ER.24H PO SCH (20:01)
[2020-11-11] MEDS: OLANZapine 5 MG TABLET PO SCH (20:01)
[2020-11-11] MEDS: MAGNESIUM HYDROXIDE 2,400 MG/30 ML ORAL.SUSP. PO PRN (20:47)
--- NOTE | 2020-11-11 21:24 | PDOC ---
Exam Note: Zackary Note: Please also refer to the separate dictated note~for this date of service dictated separately.~Patient seen individually. Discussed the patient with Nursing staff reviewed the chart.~Reviewed interim history and current functioning. Reviewed vital signs,~Labs/ Radiology~and current medications noted below. Continue current treatment with the changes noted in the dictated addendum note Assessment: Vital Signs/I&O: Vital Signs Date Time Temp Pulse Resp B/P (MAP) Pulse Ox O2 Delivery O2 Flow Rate FiO2 11/11/20 17:23 77 144/89 11/11/20 15:43 97.6 18 96 11/10/20 15:45 Room Air I & O 11/10/20 11/10/20 11/11/20 15:00 23:00 07:00 Intake Total 960 ml 460 ml Balance 960 ml 460 ml Current Medications: Meds: Current Medications Medications (Trade) Dose Ordered Sig/Andie Route PRN Reason Start Time Stop Time Status Last Admin Dose Admin Acetaminophen (Tylenol) 650 mg PRN Q6HRS PRN PO MILD PAIN / TEMP > 100.3'F 10/29/20 00:30 Multi-Ingredient Ointment (Analgesic [place]) 1 anabel PRN QID PRN TP MUSCLE PAIN 10/29/20 00:30 Al Hydroxide/Mg Hydroxide (Mylanta Plus Xs) 15 ml PRN AFTMEALHC PRN PO DYSPEPSIA 10/29/20 00:30 Magnesium Hydroxide (Milk Of Magnesia) 2,400 mg PRN QHS PRN PO 2ND CHOICE CONSTIPATION 10/29/20 00:30 11/11/20 20:47 Nicotine (Nicoderm Cq 7mg Patch) 1 patch DAILY TD 10/29/20 09:00 10/29/20 10:16 DC Bupropion HCl (Wellbutrin Xl) 300 mg DAILY PO 10/29/20 09:00 11/11/20 08:56 Divalproex Sodium (Depakote Er) 500 mg HS PO 10/29/20 21:00 10/29/20 02:41 DC Trazodone HCl (Desyrel) 300 mg HS PO 10/29/20 21:00 11/11/20 20:00 Olanzapine (ZyPREXA) 30 mg QHS PO 10/29/20 21:00 10/30/20 18:00 DC 10/29/20 20:05 Risperidone (RisperDAL) 3 mg HS PO 10/29/20 21:00 10/30/20 18:00 DC 10/29/20 20:04 Aspirin (Aspirin Enteric Coated) 81 mg DAILY PO 10/29/20 09:00 11/11/20 09:01 Calcium/Vitamin D (Oscal D 500mg/ 200uts) 1 tab DAILY PO 10/29/20 09:00 11/11/20 09:00 Carbamide Peroxide (Debrox) 2 drop DAILY AU 10/29/20 09:00 11/09/20 07:41 Carvedilol (Coreg) 6.25 mg BIDWMEALS PO 10/29/20 08:00 11/11/20 17:23 Famotidine (Pepcid) 20 mg BID PO 10/29/20 09:00 11/11/20 20:00 Finasteride (Proscar) 5 mg DAILY PO 10/29/20 09:00 11/11/20 09:01 Levothyroxine Sodium (Synthroid) 25 mcg DAILY06 PO 10/29/20 06:00 11/11/20 06:12 Lisinopril (Prinivil) 20 mg DAILY PO 10/29/20 09:00 11/11/20 08:56 Simvastatin (Zocor) 20 mg HS PO 10/29/20 21:00 11/11/20 20:00 Tizanidine HCl (Zanaflex) 2 mg PRN TID PRN PO MUSCLE SPASTICITY 10/29/20 02:15 10/30/20 22:11 Diclofenac Sodium (Voltaren) 75 mg BID PO 10/29/20 09:00 11/11/20 20:01 Lactulose (Lactulose) 20 gm BID PO 10/29/20 09:00 11/11/20 20:00 Nicotine Polacrilex (Nicorette Gum) 2 mg PRN Q1HR PRN BC SMOKING CESSATION 10/29/20 02:30 11/05/20 04:28 Oxybutynin Chloride (Ditropan) 5 mg BID PO 10/29/20 09:00 11/11/20 20:00 Olanzapine (ZyPREXA ZYDIS) 2.5 mg PRN Q2HR PRN PO PSYCHOSIS 10/29/20 02:45 Divalproex Sodium (Depakote Er) 1,000 mg HS PO 10/29/20 21:00 11/11/20 20:01 Olanzapine (ZyPREXA) 20 mg QHS PO 10/30/20 21:00 11/04/20 18:01 DC 11/03/20 20:02 Risperidone (RisperDAL) 3.5 mg HS PO 10/30/20 21:00 11/11/20 20:01 Mirtazapine (Remeron) 7.5 mg QHS PO 11/02/20 21:00 11/09/20 17:41 DC 11/08/20 20:16 Olanzapine (ZyPREXA) 15 mg QHS PO 11/04/20 21:00 11/06/20 23:59 DC 11/06/20 20:08 Olanzapine (ZyPREXA) 10 mg QHS PO 11/07/20 21:00 11/09/20 23:59 DC 11/09/20 21:24 Olanzapine (ZyPREXA) 5 mg QHS PO 11/10/20 21:00 11/12/20 23:59 11/11/20 20:01 Polyethylene Glycol (miraLAX) 17 gm PRN DAILY PRN PO 1ST CHOICE CONSTIPATION 11/05/20 14:00 Mirtazapine (Remeron) 15 mg QHS PO 11/09/20 21:00 11/11/20 20:01 I have reviewed the current psychotropics carefully including drug interactions. Risk benefit ratio favors no change other than as noted in my dictated progress note. Diagnosis: Problems: (1) Bipolar disorder, current episode mixed, severe, with psychotic features (2) Impulse control disorder (3) Anxiety disorder, unspecified (4) Schizoaffective disorder, bipolar type CLAUDIA ZAVALA MD Nov 11, 2020 21:24
[2020-11-12] MEDS: LEVOTHYROXINE 25 MCG TABLET. PO SCH (05:42)
[2020-11-12 06:13] VITALS: BP 168/88
[2020-11-12 07:10] LABS: HEMATOCRIT 36.9 % (39.0-53.0); HEMOGLOBIN 12.5 g/dL (13.0-17.5); RED BLOOD COUNT 3.76 x10^6/uL (4.30-5.70); RED CELL DISTRIBUTION WIDTH 14.2 % (11.5-14.5); WHITE BLOOD COUNT 8.2 x10^3/uL (4.0-11.0)
[2020-11-12 07:17] LABS: ALBUMIN 2.9 g/dL (3.4-5.0); ALBUMIN/GLOBULIN RATIO 0.9 (1.0-1.7); CALCIUM 8.2 mg/dL (8.5-10.1); CREATININE 1.1 mg/dL (0.7-1.3); GFR 65.8; POTASSIUM 4.2 mmol/L (3.5-5.1); TOTAL BILIRUBIN 0.3 mg/dL (0.2-1.0)
[2020-11-12] MEDS: DICLOFENAC SODIUM 25 MG TABLET.DR PO SCH ×2 (07:55→19:57)
[2020-11-12] MEDS: LISINOPRIL 20 MG TABLET PO SCH (07:55)
[2020-11-12] MEDS: FAMOTIDINE 20 MG TABLET PO SCH ×2 (07:55→19:58)
[2020-11-12] MEDS: LACTULOSE 20 GM/30 ML SOLUTION. PO SCH ×2 (07:55→19:58)
[2020-11-12] MEDS: buPROPion XL 300 MG TAB.ER.24H. PO SCH (07:55)
[2020-11-12] MEDS: OXYBUTYNIN CHLORIDE 5 MG TABLET PO SCH ×2 (07:55→19:58)
[2020-11-12] MEDS: CALCIUM CARB/VIT D3 500/200 TABLET PO SCH (07:56)
[2020-11-12] MEDS: ASPIRIN ENTERIC COATED 81 MG TABLET.DR. PO SCH (07:56)
[2020-11-12] MEDS: FINASTERIDE 5 MG TABLET. PO SCH (07:56)
[2020-11-12] MEDS: CARBAMIDE PEROXIDE 6.5% OTIC SOLUTION 15ML BOTTLE. AU SCH (07:56)
[2020-11-12] MEDS: CARVEDILOL 6.25 MG TABLET PO SCH ×2 (07:56→17:00)
--- NOTE | 2020-11-12 08:19 | PDOC ---
Exam Note: Zackary Note: This note is a late entry for 11/11/2020 covers elements not covered in my initial note. Subjective: The patient was reviewed on telehealth rounds in the evening of 11/11/2020 with Chloe DEAN. Discussed with nursing staff, reviewed the chart. He slept 8 hours previous night. Overall the patient has been pleasant, cooperative, somewhat withdrawn, still complains of some light-headedness. We will defer to Dr. Salinas. Review of Systems: Ambulation impaired with walker. No CV, , pulmonary, eye system symptoms on review. Reliability poor. Mental Status Exam: The patient is reasonably oriented. Often response is monosyllabic. Speech coherent. Abstraction is fair. Computation impaired. Language function is intact. Mood and affect withdrawn. Laboratory Data: Reviewed. Impression: Bipolar 1 disorder mixed with psychotic features. History of schizoaffective disorder bipolar type. Anxiety disorder unspecified. Impulse control disorder unspecified. Plan: Continue psychotropics from initial note. Assessment: Vital Signs/I&O: Vital Signs Date Time Temp Pulse Resp B/P (MAP) Pulse Ox O2 Delivery O2 Flow Rate FiO2 11/12/20 07:56 58 168/88 11/12/20 06:13 97.4 16 97 Room Air I & O 11/11/20 11/11/20 11/12/20 15:00 23:00 07:00 Intake Total 560 ml 240 ml Balance 560 ml 240 ml Labs: Laboratory Tests Test 11/12/20 06:23 White Blood Count 8.2 x10^3/uL (4.0-11.0) Red Blood Count 3.76 x10^6/uL (4.30-5.70) L Hemoglobin 12.5 g/dL (13.0-17.5) L Hematocrit 36.9 % (39.0-53.0) L Mean Corpuscular Volume 98 fL (79-100) Mean Corpuscular Hemoglobin 33 pg (25-35) Mean Corpuscular Hemoglobin Concent 34 g/dL (31-37) Red Cell Distribution Width 14.2 % (11.5-14.5) Platelet Count 128 x10^3/uL (140-400) L Sodium Level 141 mmol/L (136-145) Potassium Level 4.2 mmol/L (3.5-5.1) Chloride Level 106 mmol/L (98-107) Carbon Dioxide Level 31 mmol/L (21-32) Anion Gap 4 (6-14) L Blood Urea Nitrogen 24 mg/dL (8-26) Creatinine 1.1 mg/dL (0.7-1.3) Estimated GFR (Cockcroft-Gault) 65.8 BUN/Creatinine Ratio 22 (6-20) H Glucose Level 98 mg/dL (70-99) Calcium Level 8.2 mg/dL (8.5-10.1) L Total Bilirubin 0.3 mg/dL (0.2-1.0) Aspartate Amino Transferase (AST) 17 U/L (15-37) Alanine Aminotransferase (ALT) 25 U/L (16-63) Alkaline Phosphatase 62 U/L (46-116) Total Protein 6.0 g/dL (6.4-8.2) L Albumin 2.9 g/dL (3.4-5.0) L Albumin/Globulin Ratio 0.9 (1.0-1.7) L Current Medications: Meds: Laboratory Tests Test 11/12/20 06:23 White Blood Count 8.2 x10^3/uL Red Blood Count 3.76 x10^6/uL Hemoglobin 12.5 g/dL Hematocrit 36.9 % Mean Corpuscular Volume 98 fL Mean Corpuscular Hemoglobin 33 pg Mean Corpuscular Hemoglobin Concent 34 g/dL Red Cell Distribution Width 14.2 % Platelet Count 128 x10^3/uL Sodium Level 141 mmol/L Potassium Level 4.2 mmol/L Chloride Level 106 mmol/L Carbon Dioxide Level 31 mmol/L Anion Gap 4 Blood Urea Nitrogen 24 mg/dL Creatinine 1.1 mg/dL Estimated GFR (Cockcroft-Gault) 65.8 BUN/Creatinine Ratio 22 Glucose Level 98 mg/dL Calcium Level 8.2 mg/dL Total Bilirubin 0.3 mg/dL Aspartate Amino Transf (AST/SGOT) 17 U/L Alanine Aminotransferase (ALT/SGPT) 25 U/L Alkaline Phosphatase 62 U/L Total Protein 6.0 g/dL Albumin 2.9 g/dL Albumin/Globulin Ratio 0.9 Current Medications Medications (Trade) Dose Ordered Sig/Andie Route PRN Reason Start Time Stop Time Status Last Admin Dose Admin Acetaminophen (Tylenol) 650 mg PRN Q6HRS PRN PO MILD PAIN / TEMP > 100.3'F 10/29/20 00:30 Multi-Ingredient Ointment (Analgesic [place]) 1 anabel PRN QID PRN TP MUSCLE PAIN 10/29/20 00:30 Al Hydroxide/Mg Hydroxide (Mylanta Plus Xs) 15 ml PRN AFTMEALHC PRN PO DYSPEPSIA 10/29/20 00:30 Magnesium Hydroxide (Milk Of Magnesia) 2,400 mg PRN QHS PRN PO 2ND CHOICE CONSTIPATION 10/29/20 00:30 11/11/20 20:47 Nicotine (Nicoderm Cq 7mg Patch) 1 patch DAILY TD 10/29/20 09:00 10/29/20 10:16 DC Bupropion HCl (Wellbutrin Xl) 300 mg DAILY PO 10/29/20 09:00 11/12/20 07:55 Divalproex Sodium (Depakote Er) 500 mg HS PO 10/29/20 21:00 10/29/20 02:41 DC Trazodone HCl (Desyrel) 300 mg HS PO 10/29/20 21:00 11/11/20 20:00 Olanzapine (ZyPREXA) 30 mg QHS PO 10/29/20 21:00 10/30/20 18:00 DC 10/29/20 20:05 Risperidone (RisperDAL) 3 mg HS PO 10/29/20 21:00 10/30/20 18:00 DC 10/29/20 20:04 Aspirin (Aspirin Enteric Coated) 81 mg DAILY PO 10/29/20 09:00 11/12/20 07:56 Calcium/Vitamin D (Oscal D 500mg/ 200uts) 1 tab DAILY PO 10/29/20 09:00 11/12/20 07:56 Carbamide Peroxide (Debrox) 2 drop DAILY AU 10/29/20 09:00 11/12/20 07:56 Carvedilol (Coreg) 6.25 mg BIDWMEALS PO 10/29/20 08:00 11/12/20 07:56 Famotidine (Pepcid) 20 mg BID PO 10/29/20 09:00 11/12/20 07:55 Finasteride (Proscar) 5 mg DAILY PO 10/29/20 09:00 11/12/20 07:56 Levothyroxine Sodium (Synthroid) 25 mcg DAILY06 PO 10/29/20 06:00 11/12/20 05:42 Lisinopril (Prinivil) 20 mg DAILY PO 10/29/20 09:00 11/12/20 07:55 Simvastatin (Zocor) 20 mg HS PO 10/29/20 21:00 11/11/20 20:00 Tizanidine HCl (Zanaflex) 2 mg PRN TID PRN PO MUSCLE SPASTICITY 10/29/20 02:15 10/30/20 22:11 Diclofenac Sodium (Voltaren) 75 mg BID PO 10/29/20 09:00 11/12/20 07:55 Lactulose (Lactulose) 20 gm BID PO 10/29/20 09:00 11/12/20 07:55 Nicotine Polacrilex (Nicorette Gum) 2 mg PRN Q1HR PRN BC SMOKING CESSATION 10/29/20 02:30 11/05/20 04:28 Oxybutynin Chloride (Ditropan) 5 mg BID PO 10/29/20 09:00 11/12/20 07:55 Olanzapine (ZyPREXA ZYDIS) 2.5 mg PRN Q2HR PRN PO PSYCHOSIS 10/29/20 02:45 Divalproex Sodium (Depakote Er) 1,000 mg HS PO 10/29/20 21:00 11/11/20 20:01 Olanzapine (ZyPREXA) 20 mg QHS PO 10/30/20 21:00 11/04/20 18:01 DC 11/03/20 20:02 Risperidone (RisperDAL) 3.5 mg HS PO 10/30/20 21:00 11/11/20 20:01 Mirtazapine (Remeron) 7.5 mg QHS PO 11/02/20 21:00 11/09/20 17:41 DC 11/08/20 20:16 Olanzapine (ZyPREXA) 15 mg QHS PO 11/04/20 21:00 11/06/20 23:59 DC 11/06/20 20:08 Olanzapine (ZyPREXA) 10 mg QHS PO 11/07/20 21:00 11/09/20 23:59 DC 11/09/20 21:24 Olanzapine (ZyPREXA) 5 mg QHS PO 11/10/20 21:00 11/12/20 23:59 11/11/20 20:01 Polyethylene Glycol (miraLAX) 17 gm PRN DAILY PRN PO 1ST CHOICE CONSTIPATION 11/05/20 14:00 Mirtazapine (Remeron) 15 mg QHS PO 11/09/20 21:00 11/11/20 20:01 I have reviewed the current psychotropics carefully including drug interactions. Risk benefit ratio favors no change other than as noted in my dictated progress note. Diagnosis: Problems: (1) Schizoaffective disorder, bipolar type (2) Impulse control disorder (3) Bipolar disorder, current episode mixed, severe, with psychotic features (4) Anxiety disorder, unspecified CLAUDIA ZVAALA MD Nov 12, 2020 08:19
--- NOTE | 2020-11-12 12:43 | TX PLAN ---
Interdisciplinary Tx Plan Admission Information Oct 28, 2020 at 23:49 Legal Status (on Admission): Voluntary DPOA/Guardian Name: Irving Posada-Pt is a self sign Contact Other Contact Name: Irving Posada-Self sign Other Contact Verified Code Status: Full Code Allergies: Coded Allergies: chlorpromazine (Verified Allergy, Unknown, 10/29/20) divalproex sodium (Verified Adverse Reaction, Unknown, weight gain, 10/29/20) lithium (Verified Adverse Reaction, Unknown, diarrhea , 10/29/20) risperidone (Verified Adverse Reaction, Unknown, tremors, 10/29/20) Diagnoses Primary Diagnosis: Schizoaffective Disorder, Acute Exacerbation Reasons for Admission: Sig. Change Sleep, Confusion/Disoriented, Other Problem in Patient's Words: Per pt,"I was told that I was showing some odd behaviors and had put things on my neighbors porch. I, also, don't sleep well." Additional Admission Comments: Per intake record pt was demonstrating behaviors of confusion. He took household items from his apartment and sat them on his neighbors front porch. Another concern was that he took two day worth of his medication. Also, per intake, pt has been showing a flat affect. Per pt [facility] social service [facility] pt seems to struggle every other year around September. Problems Active Problems: Sleep, medication regimen Inactive Problems: Confusion Pt Strengths/Limitations Ability for Vaughn: Good Cognitive Functioning/Ability: Good Financial Resources: Good Insight/Judgement: Fair Intellectual Ability: Good Physical Health: Fair Social Skills: Good Stability in Family: Poor Stability in School/Work: Good Verbal Skills: Good Discharge Criteria Discharge Criteria: Able meet basic life need, Able to meet health needs, Adequate arrangements @DC, Adequate self-care, Verbal commit med comply, Improved behavior Other Discharge Comments: Pt to follow up with [facility] PCP, psychiatrist, and SW upon d/c. Preliminary Discharge Plan Preliminary DC Plan: Current Living Arrange. Special Precautions Special Precautions: Other Fall Risk: Moderate Initial D/C Plan Pt to follow-up with his PCP, psychiatrist, and social service manager through the [facility] upon discharge. Identified Discharge Needs: None Currently Utilized Resources Currently Utilized Resources/P: PCP, Psychiatrist, and [phone] Identified Problems/Hx/Goals Objectives/Short-Term Goals Short Term Goals: Control abnormal behavior, Medication Stabilization, Monitor Med Effects, Promote Coping Skill Short Term Goals in Patient's: "To get help with sleep and adjust medications." Interventions/Frequency Staff Interventions/Frequency&: Psychiatry to assess pt three times per week for medication management. Nursing to assess behaviors, monitor medications, and complete 15 minute checks daily. Social work to see pt at least twice weekly to aid in return home. Activities to encourage pt to participate in group activities daily. 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 Education: Pt graduated high school from [employer]. 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 Pt continues to participate in groups. He is very appropriate in his responses. Pt seems to be doing well with his medication adjustment and will complete his last dose of Zyprexa on 11/14/20. Pt is currently taking Bupropion, Divalproex, Olanzapine, Risperidone, Trazodone, and Remeron. Pt should be ready for d/c early next week. SMOOTH RASHEED Nov 12, 2020 12:43
[2020-11-12 15:59] VITALS: BP 154/94
[2020-11-12] MEDS: MIRTAZAPINE 15 MG TABLET PO SCH (19:57)
[2020-11-12] MEDS: DIVALPROEX ER 500 MG TAB.ER.24H PO SCH (19:57)
[2020-11-12] MEDS: OLANZapine 5 MG TABLET PO SCH (19:58)
[2020-11-12] MEDS: SIMVASTATIN 20 MG TABLET PO SCH (19:58)
[2020-11-12] MEDS: traZODone 100 MG TABLET. PO SCH (19:58)
[2020-11-12] MEDS: risperiDONE 1 MG TABLET. PO SCH (19:58)
--- NOTE | 2020-11-12 21:09 | PDOC ---
Exam Note: Zackary Note: Please also refer to the separate dictated note~for this date of service dictated separately.~Patient seen individually. Discussed the patient with Nursing staff reviewed the chart.~Reviewed interim history and current functioning. Reviewed vital signs,~Labs/ Radiology~and current medications noted below. Continue current treatment with the changes noted in the dictated addendum note Assessment: Vital Signs/I&O: Vital Signs Date Time Temp Pulse Resp B/P (MAP) Pulse Ox O2 Delivery O2 Flow Rate FiO2 11/12/20 17:00 68 154/94 11/12/20 15:59 97.3 16 98 11/12/20 06:13 Room Air I & O 11/11/20 11/11/20 11/12/20 15:00 23:00 07:00 Intake Total 560 ml 240 ml Balance 560 ml 240 ml Labs: Laboratory Tests Test 11/12/20 06:23 White Blood Count 8.2 x10^3/uL (4.0-11.0) Red Blood Count 3.76 x10^6/uL (4.30-5.70) L Hemoglobin 12.5 g/dL (13.0-17.5) L Hematocrit 36.9 % (39.0-53.0) L Mean Corpuscular Volume 98 fL (79-100) Mean Corpuscular Hemoglobin 33 pg (25-35) Mean Corpuscular Hemoglobin Concent 34 g/dL (31-37) Red Cell Distribution Width 14.2 % (11.5-14.5) Platelet Count 128 x10^3/uL (140-400) L Sodium Level 141 mmol/L (136-145) Potassium Level 4.2 mmol/L (3.5-5.1) Chloride Level 106 mmol/L (98-107) Carbon Dioxide Level 31 mmol/L (21-32) Anion Gap 4 (6-14) L Blood Urea Nitrogen 24 mg/dL (8-26) Creatinine 1.1 mg/dL (0.7-1.3) Estimated GFR (Cockcroft-Gault) 65.8 BUN/Creatinine Ratio 22 (6-20) H Glucose Level 98 mg/dL (70-99) Calcium Level 8.2 mg/dL (8.5-10.1) L Total Bilirubin 0.3 mg/dL (0.2-1.0) Aspartate Amino Transferase (AST) 17 U/L (15-37) Alanine Aminotransferase (ALT) 25 U/L (16-63) Alkaline Phosphatase 62 U/L (46-116) Total Protein 6.0 g/dL (6.4-8.2) L Albumin 2.9 g/dL (3.4-5.0) L Albumin/Globulin Ratio 0.9 (1.0-1.7) L Current Medications: Meds: Laboratory Tests Test 11/12/20 06:23 White Blood Count 8.2 x10^3/uL Red Blood Count 3.76 x10^6/uL Hemoglobin 12.5 g/dL Hematocrit 36.9 % Mean Corpuscular Volume 98 fL Mean Corpuscular Hemoglobin 33 pg Mean Corpuscular Hemoglobin Concent 34 g/dL Red Cell Distribution Width 14.2 % Platelet Count 128 x10^3/uL Sodium Level 141 mmol/L Potassium Level 4.2 mmol/L Chloride Level 106 mmol/L Carbon Dioxide Level 31 mmol/L Anion Gap 4 Blood Urea Nitrogen 24 mg/dL Creatinine 1.1 mg/dL Estimated GFR (Cockcroft-Gault) 65.8 BUN/Creatinine Ratio 22 Glucose Level 98 mg/dL Calcium Level 8.2 mg/dL Total Bilirubin 0.3 mg/dL Aspartate Amino Transf (AST/SGOT) 17 U/L Alanine Aminotransferase (ALT/SGPT) 25 U/L Alkaline Phosphatase 62 U/L Total Protein 6.0 g/dL Albumin 2.9 g/dL Albumin/Globulin Ratio 0.9 Current Medications Medications (Trade) Dose Ordered Sig/Andie Route PRN Reason Start Time Stop Time Status Last Admin Dose Admin Acetaminophen (Tylenol) 650 mg PRN Q6HRS PRN PO MILD PAIN / TEMP > 100.3'F 10/29/20 00:30 Multi-Ingredient Ointment (Analgesic [place]) 1 anabel PRN QID PRN TP MUSCLE PAIN 10/29/20 00:30 Al Hydroxide/Mg Hydroxide (Mylanta Plus Xs) 15 ml PRN AFTMEALHC PRN PO DYSPEPSIA 10/29/20 00:30 Magnesium Hydroxide (Milk Of Magnesia) 2,400 mg PRN QHS PRN PO 2ND CHOICE CONSTIPATION 10/29/20 00:30 11/11/20 20:47 Nicotine (Nicoderm Cq 7mg Patch) 1 patch DAILY TD 10/29/20 09:00 10/29/20 10:16 DC Bupropion HCl (Wellbutrin Xl) 300 mg DAILY PO 10/29/20 09:00 11/12/20 07:55 Divalproex Sodium (Depakote Er) 500 mg HS PO 10/29/20 21:00 10/29/20 02:41 DC Trazodone HCl (Desyrel) 300 mg HS PO 10/29/20 21:00 11/12/20 19:58 Olanzapine (ZyPREXA) 30 mg QHS PO 10/29/20 21:00 10/30/20 18:00 DC 10/29/20 20:05 Risperidone (RisperDAL) 3 mg HS PO 10/29/20 21:00 10/30/20 18:00 DC 10/29/20 20:04 Aspirin (Aspirin Enteric Coated) 81 mg DAILY PO 10/29/20 09:00 11/12/20 07:56 Calcium/Vitamin D (Oscal D 500mg/ 200uts) 1 tab DAILY PO 10/29/20 09:00 11/12/20 07:56 Carbamide Peroxide (Debrox) 2 drop DAILY AU 10/29/20 09:00 11/12/20 07:56 Carvedilol (Coreg) 6.25 mg BIDWMEALS PO 10/29/20 08:00 11/12/20 17:00 Famotidine (Pepcid) 20 mg BID PO 10/29/20 09:00 11/12/20 19:58 Finasteride (Proscar) 5 mg DAILY PO 10/29/20 09:00 11/12/20 07:56 Levothyroxine Sodium (Synthroid) 25 mcg DAILY06 PO 10/29/20 06:00 11/12/20 05:42 Lisinopril (Prinivil) 20 mg DAILY PO 10/29/20 09:00 11/12/20 07:55 Simvastatin (Zocor) 20 mg HS PO 10/29/20 21:00 11/12/20 19:58 Tizanidine HCl (Zanaflex) 2 mg PRN TID PRN PO MUSCLE SPASTICITY 10/29/20 02:15 10/30/20 22:11 Diclofenac Sodium (Voltaren) 75 mg BID PO 10/29/20 09:00 11/12/20 19:57 Lactulose (Lactulose) 20 gm BID PO 10/29/20 09:00 11/12/20 19:58 Nicotine Polacrilex (Nicorette Gum) 2 mg PRN Q1HR PRN BC SMOKING CESSATION 10/29/20 02:30 11/05/20 04:28 Oxybutynin Chloride (Ditropan) 5 mg BID PO 10/29/20 09:00 11/12/20 19:58 Olanzapine (ZyPREXA ZYDIS) 2.5 mg PRN Q2HR PRN PO PSYCHOSIS 10/29/20 02:45 Divalproex Sodium (Depakote Er) 1,000 mg HS PO 10/29/20 21:00 11/12/20 19:57 Olanzapine (ZyPREXA) 20 mg QHS PO 10/30/20 21:00 11/04/20 18:01 DC 11/03/20 20:02 Risperidone (RisperDAL) 3.5 mg HS PO 10/30/20 21:00 11/12/20 19:58 Mirtazapine (Remeron) 7.5 mg QHS PO 11/02/20 21:00 11/09/20 17:41 DC 11/08/20 20:16 Olanzapine (ZyPREXA) 15 mg QHS PO 11/04/20 21:00 11/06/20 23:59 DC 11/06/20 20:08 Olanzapine (ZyPREXA) 10 mg QHS PO 11/07/20 21:00 11/09/20 23:59 DC 11/09/20 21:24 Olanzapine (ZyPREXA) 5 mg QHS PO 11/10/20 21:00 11/12/20 23:59 11/12/20 19:58 Polyethylene Glycol (miraLAX) 17 gm PRN DAILY PRN PO 1ST CHOICE CONSTIPATION 11/05/20 14:00 Mirtazapine (Remeron) 15 mg QHS PO 11/09/20 21:00 11/12/20 19:57 I have reviewed the current psychotropics carefully including drug interactions. Risk benefit ratio favors no change other than as noted in my dictated progress note. Diagnosis: Problems: (1) Bipolar disorder, current episode mixed, severe, with psychotic features (2) Impulse control disorder (3) Anxiety disorder, unspecified (4) Schizoaffective disorder, bipolar type CLAUDIA ZAVALA MD Nov 12, 2020 21:09
[2020-11-13] MEDS ORDERED: ACET325T21 PO (05:06)
[2020-11-13] MEDS ORDERED: DICL75TA PO (05:06)
[2020-11-13] MEDS ORDERED: MAGN24003 PO (05:07)
[2020-11-13] MEDS ORDERED: MAG-124 PO (05:07)
[2020-11-13] MEDS ORDERED: METH57CR17 TP (05:08)
[2020-11-13] MEDS ORDERED: MIRT15TA3 PO (05:08)
[2020-11-13] MEDS ORDERED: NICO2GUM5 BC (05:09)
[2020-11-13] MEDS ORDERED: OLAN5TAB7 PO (05:09)
[2020-11-13] MEDS ORDERED: OXYB5TAB10 PO (05:10)
[2020-11-13] MEDS ORDERED: POLY2500 PO (05:10)
[2020-11-13] MEDS ORDERED: RISP1TAB88 PO (05:11)
[2020-11-13] MEDS: LEVOTHYROXINE 25 MCG TABLET. PO SCH (05:21)
[2020-11-13 06:14] VITALS: BP 134/84
[2020-11-13] MEDS: FINASTERIDE 5 MG TABLET. PO SCH (08:16)
[2020-11-13] MEDS: CARVEDILOL 6.25 MG TABLET PO SCH ×2 (08:16→17:00)
[2020-11-13] MEDS: LISINOPRIL 20 MG TABLET PO SCH (08:16)
[2020-11-13] MEDS: DICLOFENAC SODIUM 25 MG TABLET.DR PO SCH ×2 (08:16→20:09)
[2020-11-13] MEDS: buPROPion XL 300 MG TAB.ER.24H. PO SCH (08:16)
[2020-11-13] MEDS: ASPIRIN ENTERIC COATED 81 MG TABLET.DR. PO SCH (08:16)
[2020-11-13] MEDS: OXYBUTYNIN CHLORIDE 5 MG TABLET PO SCH ×2 (08:16→20:08)
[2020-11-13] MEDS: FAMOTIDINE 20 MG TABLET PO SCH ×2 (08:16→20:08)
[2020-11-13] MEDS: CALCIUM CARB/VIT D3 500/200 TABLET PO SCH (08:17)
[2020-11-13] MEDS: LACTULOSE 20 GM/30 ML SOLUTION. PO SCH ×2 (08:17→20:10)
[2020-11-13] MEDS: CARBAMIDE PEROXIDE 6.5% OTIC SOLUTION 15ML BOTTLE. AU SCH (08:18)
--- NOTE | 2020-11-13 09:01 | PDOC ---
Exam Note: Zackary Note: This note is a late entry for 11/12/2020 covers elements not covered in my initial note. Subjective: The patient was reviewed on telehealth rounds in the morning of 11/12/2020 for a treatment team meeting with Piper Boyle, Sheba Walker and Stephenie (social sciences instructor), Annelise, activity therapy and Yana DEAN. Discussed with nursing staff, reviewed the chart. He slept 6 hours previous night. Overall the patient has been fairly appropriate, interactive on the unit. No clear psychotic symptoms. At the treatment team meeting we discussed discharge plans. This social service staff have discussed with the [facility] social sciences instructor and his Zyprexa will be stopped on Monday. Monday being a Federal holiday, social sciences instructor at the [facility] is unavailable and we will plan for a discharge on Monday so that he is able to follow up with the social sciences instructor immediately, specifically since he alone lives by himself. Review of Systems: Ambulation impaired with walker. No CV, , pulmonary, eye system symptoms on review. Complains of occasional dizziness. Mental Status Exam: The patient is reasonably oriented. Often response is monosyllabic. Speech coherent. Abstraction is fair. Computation impaired. Language function is intact. Mood and affect withdrawn. Laboratory Data: Reviewed. Impression: Bipolar 1 disorder mixed with psychotic features. History of schizoaffective disorder bipolar type. Anxiety disorder unspecified. Impulse control disorder unspecified. Plan: Continue psychotropics from initial note. Assessment: Vital Signs/I&O: Vital Signs Date Time Temp Pulse Resp B/P (MAP) Pulse Ox O2 Delivery O2 Flow Rate FiO2 11/13/20 08:16 66 134/84 11/13/20 06:14 98.0 16 97 11/12/20 06:13 Room Air I & O 11/12/20 11/12/20 11/13/20 15:00 23:00 07:00 Intake Total 600 ml 360 ml Balance 600 ml 360 ml Current Medications: Meds: Current Medications Medications (Trade) Dose Ordered Sig/Andie Route PRN Reason Start Time Stop Time Status Last Admin Dose Admin Acetaminophen (Tylenol) 650 mg PRN Q6HRS PRN PO MILD PAIN / TEMP > 100.3'F 10/29/20 00:30 Multi-Ingredient Ointment (Analgesic [place]) 1 anabel PRN QID PRN TP MUSCLE PAIN 10/29/20 00:30 Al Hydroxide/Mg Hydroxide (Mylanta Plus Xs) 15 ml PRN AFTMEALHC PRN PO DYSPEPSIA 10/29/20 00:30 Magnesium Hydroxide (Milk Of Magnesia) 2,400 mg PRN QHS PRN PO 2ND CHOICE CONSTIPATION 10/29/20 00:30 11/11/20 20:47 Nicotine (Nicoderm Cq 7mg Patch) 1 patch DAILY TD 10/29/20 09:00 10/29/20 10:16 DC Bupropion HCl (Wellbutrin Xl) 300 mg DAILY PO 10/29/20 09:00 11/13/20 08:16 Divalproex Sodium (Depakote Er) 500 mg HS PO 10/29/20 21:00 10/29/20 02:41 DC Trazodone HCl (Desyrel) 300 mg HS PO 10/29/20 21:00 11/12/20 19:58 Olanzapine (ZyPREXA) 30 mg QHS PO 10/29/20 21:00 10/30/20 18:00 DC 10/29/20 20:05 Risperidone (RisperDAL) 3 mg HS PO 10/29/20 21:00 10/30/20 18:00 DC 10/29/20 20:04 Aspirin (Aspirin Enteric Coated) 81 mg DAILY PO 10/29/20 09:00 11/13/20 08:16 Calcium/Vitamin D (Oscal D 500mg/ 200uts) 1 tab DAILY PO 10/29/20 09:00 11/13/20 08:17 Carbamide Peroxide (Debrox) 2 drop DAILY AU 10/29/20 09:00 11/13/20 08:20 DC 11/12/20 07:56 Carvedilol (Coreg) 6.25 mg BIDWMEALS PO 10/29/20 08:00 11/13/20 08:16 Famotidine (Pepcid) 20 mg BID PO 10/29/20 09:00 11/13/20 08:16 Finasteride (Proscar) 5 mg DAILY PO 10/29/20 09:00 11/13/20 08:16 Levothyroxine Sodium (Synthroid) 25 mcg DAILY06 PO 10/29/20 06:00 11/13/20 05:21 Lisinopril (Prinivil) 20 mg DAILY PO 10/29/20 09:00 11/13/20 08:16 Simvastatin (Zocor) 20 mg HS PO 10/29/20 21:00 11/12/20 19:58 Tizanidine HCl (Zanaflex) 2 mg PRN TID PRN PO MUSCLE SPASTICITY 10/29/20 02:15 10/30/20 22:11 Diclofenac Sodium (Voltaren) 75 mg BID PO 10/29/20 09:00 11/13/20 08:16 Lactulose (Lactulose) 20 gm BID PO 10/29/20 09:00 11/13/20 08:17 Nicotine Polacrilex (Nicorette Gum) 2 mg PRN Q1HR PRN BC SMOKING CESSATION 10/29/20 02:30 11/05/20 04:28 Oxybutynin Chloride (Ditropan) 5 mg BID PO 10/29/20 09:00 11/13/20 08:16 Olanzapine (ZyPREXA ZYDIS) 2.5 mg PRN Q2HR PRN PO PSYCHOSIS 10/29/20 02:45 Divalproex Sodium (Depakote Er) 1,000 mg HS PO 10/29/20 21:00 11/12/20 19:57 Olanzapine (ZyPREXA) 20 mg QHS PO 10/30/20 21:00 11/04/20 18:01 DC 11/03/20 20:02 Risperidone (RisperDAL) 3.5 mg HS PO 10/30/20 21:00 11/12/20 19:58 Mirtazapine (Remeron) 7.5 mg QHS PO 11/02/20 21:00 11/09/20 17:41 DC 11/08/20 20:16 Olanzapine (ZyPREXA) 15 mg QHS PO 11/04/20 21:00 11/06/20 23:59 DC 11/06/20 20:08 Olanzapine (ZyPREXA) 10 mg QHS PO 11/07/20 21:00 11/09/20 23:59 DC 11/09/20 21:24 Olanzapine (ZyPREXA) 5 mg QHS PO 11/10/20 21:00 11/12/20 23:59 DC 11/12/20 19:58 Polyethylene Glycol (miraLAX) 17 gm PRN DAILY PRN PO 1ST CHOICE CONSTIPATION 1/7/21 14:00 Mirtazapine (Remeron) 15 mg QHS PO 11/09/20 21:00 11/12/20 19:57 I have reviewed the current psychotropics carefully including drug interactions. Risk benefit ratio favors no change other than as noted in my dictated progress note. Diagnosis: Problems: (1) Bipolar disorder, current episode mixed, severe, with psychotic features (2) Impulse control disorder (3) Anxiety disorder, unspecified (4) Schizoaffective disorder, bipolar type CLAUDIA ZAVALA MD Nov 13, 2020 09:01
[2020-11-13 15:22] VITALS: BP 142/106
[2020-11-13] MEDS: DIVALPROEX ER 500 MG TAB.ER.24H PO SCH (20:07)
[2020-11-13] MEDS: MIRTAZAPINE 15 MG TABLET PO SCH (20:09)
[2020-11-13] MEDS: SIMVASTATIN 20 MG TABLET PO SCH (20:10)
[2020-11-13] MEDS: risperiDONE 1 MG TABLET. PO SCH (20:10)
[2020-11-13] MEDS: traZODone 100 MG TABLET. PO SCH (20:10)
[2020-11-13] MEDS: MAGNESIUM HYDROXIDE 2,400 MG/30 ML ORAL.SUSP. PO PRN (20:16)
--- NOTE | 2020-11-13 21:37 | PDOC ---
Exam Note: Zackary Note: Please also refer to the separate dictated note~for this date of service dictated separately.~Patient seen individually. Discussed the patient with Nursing staff reviewed the chart.~Reviewed interim history and current functioning. Reviewed vital signs,~Labs/ Radiology~and current medications noted below. Continue current treatment with the changes noted in the dictated addendum note Assessment: Vital Signs/I&O: Vital Signs Date Time Temp Pulse Resp B/P (MAP) Pulse Ox O2 Delivery O2 Flow Rate FiO2 11/13/20 17:00 65 142/106 11/13/20 15:22 98.0 20 99 Room Air I & O 11/12/20 11/12/20 11/13/20 15:00 23:00 07:00 Intake Total 600 ml 360 ml Balance 600 ml 360 ml Current Medications: I have reviewed the current psychotropics carefully including drug interactions. Risk benefit ratio favors no change other than as noted in my dictated progress note. Diagnosis: Problems: (1) Bipolar disorder, current episode mixed, severe, with psychotic features (2) Impulse control disorder (3) Anxiety disorder, unspecified (4) Schizoaffective disorder, bipolar type CLAUDIA ZAVALA MD Nov 13, 2020 21:37
[2020-11-13] MEDS: MELATONIN 3 MG TABLET PO PRN (23:46)
[2020-11-14] MEDS: LEVOTHYROXINE 25 MCG TABLET. PO SCH (04:47)
[2020-11-14 06:34] VITALS: BP 121/82
[2020-11-14] MEDS: LACTULOSE 20 GM/30 ML SOLUTION. PO SCH ×2 (08:36→21:03)
[2020-11-14] MEDS: FAMOTIDINE 20 MG TABLET PO SCH ×2 (08:36→21:05)
[2020-11-14] MEDS: LISINOPRIL 20 MG TABLET PO SCH (08:36)
[2020-11-14] MEDS: FINASTERIDE 5 MG TABLET. PO SCH (08:36)
[2020-11-14] MEDS: OXYBUTYNIN CHLORIDE 5 MG TABLET PO SCH ×2 (08:36→21:08)
[2020-11-14] MEDS: CARVEDILOL 6.25 MG TABLET PO SCH ×2 (08:37→17:19)
[2020-11-14] MEDS: CALCIUM CARB/VIT D3 500/200 TABLET PO SCH (08:37)
[2020-11-14] MEDS: DICLOFENAC SODIUM 25 MG TABLET.DR PO SCH ×2 (08:37→21:04)
[2020-11-14] MEDS: ASPIRIN ENTERIC COATED 81 MG TABLET.DR. PO SCH (08:37)
[2020-11-14] MEDS: buPROPion XL 300 MG TAB.ER.24H. PO SCH (08:37)
--- NOTE | 2020-11-14 13:03 | PN ---
DATE: 11/14/2020 SUBJECTIVE: The patient was seen today, met with the staff, chart reviewed and also covering for Dr. Harrison. Staff reports no major behavior problems. The patient is not presenting with any major physical problems at this time. OBSERVATION: VITAL SIGNS: Temperature 97.2, blood pressure 119/76, pulse 62, respirations 16, O2 sat 98%. GENERAL: Slept about 5 hours last night. The patient's appetite improved. LABORATORY DATA: The patient's lab reviewed. The patient's hemoglobin 12.5. The patient's BUN and creatinine ratio 22. MEDICATIONS: The patient's current medications include mirtazapine 15 mg at night, Risperdal 3.5 mg at night, Depakote 1000 mg at night, trazodone 300 mg at night, bupropion 300 mg daily. ASSESSMENT: 1. Bipolar disorder, mixed, with psychotic features. 2. Anxiety disorder, unspecified. KEN BLAIR MD DR: MULUGETA/emelia JOB#: [id number] / [id number]
[2020-11-14 15:37] VITALS: BP 138/91
[2020-11-14] MEDS: MAGNESIUM HYDROXIDE 2,400 MG/30 ML ORAL.SUSP. PO PRN (17:47)
[2020-11-14] MEDS: DIVALPROEX ER 500 MG TAB.ER.24H PO SCH (21:05)
[2020-11-14] MEDS: traZODone 100 MG TABLET. PO SCH (21:06)
[2020-11-14] MEDS: MELATONIN 3 MG TABLET PO PRN (21:08)
[2020-11-14] MEDS: SIMVASTATIN 20 MG TABLET PO SCH (21:08)
[2020-11-14] MEDS: MIRTAZAPINE 15 MG TABLET PO SCH (21:08)
[2020-11-14] MEDS: risperiDONE 1 MG TABLET. PO SCH (21:09)
--- NOTE | 2020-11-14 21:17 | PDOC ---
Exam Note: Zackary Note: This note is a late entry for 11/13/2020 covers elements not covered in my initial note. Subjective: The patient was reviewed on telehealth rounds in the evening of 11/13/2020 with Valerie DEAN. Discussed with nursing staff, reviewed the chart. He slept 6-1/4 hours previous night. Overall the patient is doing somewhat better. Zyprexa has been stopped and no psychotic symptoms noted. He is tolerating the increased Risperdal. He complains of insomnia, wanting something for it. We will start melatonin 3 mg h.s. p.r.n. Review of Systems: Ambulation impaired with walker. No CV, , pulmonary, eye system symptoms on review. Mental Status Exam: The patient is reasonably oriented. Often response is monosyllabic. Speech coherent. Abstraction is fair. Computation impaired. Language function is intact. Mood and affect withdrawn. Laboratory Data: Reviewed. Impression: Bipolar 1 disorder mixed with psychotic features. History of schizoaffective disorder bipolar type. Anxiety disorder unspecified. Impulse control disorder unspecified. Plan: Continue psychotropics from initial note. Assessment: Vital Signs/I&O: Vital Signs Date Time Temp Pulse Resp B/P (MAP) Pulse Ox O2 Delivery O2 Flow Rate FiO2 11/14/20 17:19 72 138/91 11/14/20 15:37 97.8 20 98 Room Air I & O 11/13/20 11/13/20 11/14/20 15:00 23:00 07:00 Intake Total 960 ml 360 ml Balance 960 ml 360 ml Current Medications: Meds: Current Medications Medications (Trade) Dose Ordered Sig/Andie Route PRN Reason Start Time Stop Time Status Last Admin Dose Admin Acetaminophen (Tylenol) 650 mg PRN Q6HRS PRN PO MILD PAIN / TEMP > 100.3'F 10/29/20 00:30 Multi-Ingredient Ointment (Analgesic [place]) 1 anabel PRN QID PRN TP MUSCLE PAIN 10/29/20 00:30 Al Hydroxide/Mg Hydroxide (Mylanta Plus Xs) 15 ml PRN AFTMEALHC PRN PO DYSPEPSIA 10/29/20 00:30 Magnesium Hydroxide (Milk Of Magnesia) 2,400 mg PRN QHS PRN PO 2ND CHOICE CONSTIPATION 10/29/20 00:30 11/14/20 17:47 Nicotine (Nicoderm Cq 7mg Patch) 1 patch DAILY TD 10/29/20 09:00 10/29/20 10:16 DC Bupropion HCl (Wellbutrin Xl) 300 mg DAILY PO 10/29/20 09:00 11/14/20 08:37 Divalproex Sodium (Depakote Er) 500 mg HS PO 10/29/20 21:00 10/29/20 02:41 DC Trazodone HCl (Desyrel) 300 mg HS PO 10/29/20 21:00 11/14/20 21:06 Olanzapine (ZyPREXA) 30 mg QHS PO 10/29/20 21:00 10/30/20 18:00 DC 10/29/20 20:05 Risperidone (RisperDAL) 3 mg HS PO 10/29/20 21:00 10/30/20 18:00 DC 10/29/20 20:04 Aspirin (Aspirin Enteric Coated) 81 mg DAILY PO 10/29/20 09:00 11/14/20 08:37 Calcium/Vitamin D (Oscal D 500mg/ 200uts) 1 tab DAILY PO 10/29/20 09:00 11/14/20 08:37 Carbamide Peroxide (Debrox) 2 drop DAILY AU 10/29/20 09:00 11/13/20 08:20 DC 11/12/20 07:56 Carvedilol (Coreg) 6.25 mg BIDWMEALS PO 10/29/20 08:00 11/14/20 17:19 Famotidine (Pepcid) 20 mg BID PO 10/29/20 09:00 11/14/20 21:05 Finasteride (Proscar) 5 mg DAILY PO 10/29/20 09:00 11/14/20 08:36 Levothyroxine Sodium (Synthroid) 25 mcg DAILY06 PO 10/29/20 06:00 11/14/20 04:47 Lisinopril (Prinivil) 20 mg DAILY PO 10/29/20 09:00 11/14/20 08:36 Simvastatin (Zocor) 20 mg HS PO 10/29/20 21:00 11/14/20 21:08 Tizanidine HCl (Zanaflex) 2 mg PRN TID PRN PO MUSCLE SPASTICITY 10/29/20 02:15 10/30/20 22:11 Diclofenac Sodium (Voltaren) 75 mg BID PO 10/29/20 09:00 11/14/20 21:04 Lactulose (Lactulose) 20 gm BID PO 10/29/20 09:00 11/14/20 21:03 Nicotine Polacrilex (Nicorette Gum) 2 mg PRN Q1HR PRN BC SMOKING CESSATION 10/29/20 02:30 11/05/20 04:28 Oxybutynin Chloride (Ditropan) 5 mg BID PO 10/29/20 09:00 11/14/20 21:08 Olanzapine (ZyPREXA ZYDIS) 2.5 mg PRN Q2HR PRN PO PSYCHOSIS 10/29/20 02:45 Divalproex Sodium (Depakote Er) 1,000 mg HS PO 10/29/20 21:00 11/14/20 21:05 Olanzapine (ZyPREXA) 20 mg QHS PO 10/30/20 21:00 11/04/20 18:01 DC 11/03/20 20:02 Risperidone (RisperDAL) 3.5 mg HS PO 10/30/20 21:00 11/14/20 21:09 Mirtazapine (Remeron) 7.5 mg QHS PO 11/02/20 21:00 11/09/20 17:41 DC 11/08/20 20:16 Olanzapine (ZyPREXA) 15 mg QHS PO 11/04/20 21:00 11/06/20 23:59 DC 11/06/20 20:08 Olanzapine (ZyPREXA) 10 mg QHS PO 11/07/20 21:00 11/09/20 23:59 DC 11/09/20 21:24 Olanzapine (ZyPREXA) 5 mg QHS PO 11/10/20 21:00 11/12/20 23:59 DC 11/12/20 19:58 Polyethylene Glycol (miraLAX) 17 gm PRN DAILY PRN PO 1ST CHOICE CONSTIPATION 11/05/20 14:00 Mirtazapine (Remeron) 15 mg QHS PO 11/09/20 21:00 11/14/20 21:08 Melatonin (Melatonin) 3 mg PRN QHS PRN PO INSOMNIA 11/13/20 19:30 11/14/20 21:08 I have reviewed the current psychotropics carefully including drug interactions. Risk benefit ratio favors no change other than as noted in my dictated progress note. Diagnosis: Problems: (1) Anxiety disorder, unspecified (2) Bipolar disorder, current episode mixed, severe, with psychotic features (3) Schizoaffective disorder, bipolar type CLAUDIA ZAVALA MD Nov 14, 2020 21:17
[2020-11-15] MEDS: LEVOTHYROXINE 25 MCG TABLET. PO SCH (05:26)
[2020-11-15 06:43] VITALS: BP 134/85
[2020-11-15] MEDS: LACTULOSE 20 GM/30 ML SOLUTION. PO SCH ×2 (07:43→20:15)
[2020-11-15] MEDS: buPROPion XL 300 MG TAB.ER.24H. PO SCH (07:43)
[2020-11-15] MEDS: DICLOFENAC SODIUM 25 MG TABLET.DR PO SCH ×2 (07:46→20:20)
[2020-11-15] MEDS: ASPIRIN ENTERIC COATED 81 MG TABLET.DR. PO SCH (07:47)
[2020-11-15] MEDS: OXYBUTYNIN CHLORIDE 5 MG TABLET PO SCH ×2 (07:47→20:19)
[2020-11-15] MEDS: CALCIUM CARB/VIT D3 500/200 TABLET PO SCH (07:47)
[2020-11-15] MEDS: LISINOPRIL 20 MG TABLET PO SCH (07:47)
[2020-11-15] MEDS: CARVEDILOL 6.25 MG TABLET PO SCH ×2 (07:47→17:09)
[2020-11-15] MEDS: FAMOTIDINE 20 MG TABLET PO SCH ×2 (07:48→20:17)
[2020-11-15] MEDS: FINASTERIDE 5 MG TABLET. PO SCH (07:48)
--- NOTE | 2020-11-15 13:08 | PN ---
DATE: 11/15/2020 SUBJECTIVE: The patient was seen today, met with the staff, chart reviewed. Staff reports no major behavior problems, is compliant with the medications and assessment. The patient is still indifferent, some constriction of affect. OBSERVATION: VITAL SIGNS: Temperature 97.5, blood pressure 134/85, pulse 60, respirations 18, O2 sat 99%. GENERAL: Slept about 7 hours last night. The patient's appetite improved. LABORATORY DATA: The patient's lab reviewed. MEDICATIONS: The patient's current medications include mirtazapine 15 mg at night, Risperdal 3.5 mg at night, Depakote 1000 mg at night, trazodone 300 mg at night and bupropion 300 mg daily. ASSESSMENT: Bipolar disorder, mixed, with psychotic features; anxiety disorder, unspecified. PLAN: Continue with the current treatment plan. LENGTH OF STAY: 5-10 days. KEN BLAIR MD DR: MULUGETA/emelia JOB#: [id number] / [id number]
[2020-11-15 16:07] VITALS: BP 125/89
[2020-11-15] MEDS: risperiDONE 1 MG TABLET. PO SCH (20:16)
[2020-11-15] MEDS: DIVALPROEX ER 500 MG TAB.ER.24H PO SCH (20:17)
[2020-11-15] MEDS: MIRTAZAPINE 15 MG TABLET PO SCH (20:18)
[2020-11-15] MEDS: SIMVASTATIN 20 MG TABLET PO SCH (20:18)
[2020-11-15] MEDS: traZODone 100 MG TABLET. PO SCH (20:18)
[2020-11-16] MEDS: LEVOTHYROXINE 25 MCG TABLET. PO SCH (05:21)
[2020-11-16 06:05] VITALS: BP 127/83
[2020-11-16] MEDS: FAMOTIDINE 20 MG TABLET PO SCH ×2 (08:33→21:12)
[2020-11-16] MEDS: LISINOPRIL 20 MG TABLET PO SCH (08:33)
[2020-11-16] MEDS: FINASTERIDE 5 MG TABLET. PO SCH (08:33)
[2020-11-16] MEDS: buPROPion XL 300 MG TAB.ER.24H. PO SCH (08:33)
[2020-11-16] MEDS: CARVEDILOL 6.25 MG TABLET PO SCH ×2 (08:33→17:14)
[2020-11-16] MEDS: ASPIRIN ENTERIC COATED 81 MG TABLET.DR. PO SCH (08:33)
[2020-11-16] MEDS: CALCIUM CARB/VIT D3 500/200 TABLET PO SCH (08:34)
[2020-11-16] MEDS: OXYBUTYNIN CHLORIDE 5 MG TABLET PO SCH ×2 (08:34→21:11)
[2020-11-16] MEDS: LACTULOSE 20 GM/30 ML SOLUTION. PO SCH ×2 (08:34→21:12)
[2020-11-16] MEDS: DICLOFENAC SODIUM 25 MG TABLET.DR PO SCH ×2 (08:40→21:23)
[2020-11-16 16:29] VITALS: BP 138/96
--- NOTE | 2020-11-16 21:05 | PDOC ---
Exam Note: Zackary Note: Please also refer to the separate dictated note~for this date of service dictated separately.~Patient seen individually. Discussed the patient with Nursing staff reviewed the chart.~Reviewed interim history and current functioning. Reviewed vital signs,~Labs/ Radiology~and current medications noted below. Continue current treatment with the changes noted in the dictated addendum note Assessment: Vital Signs/I&O: Vital Signs Date Time Temp Pulse Resp B/P (MAP) Pulse Ox O2 Delivery O2 Flow Rate FiO2 11/16/20 17:14 72 138/96 11/16/20 16:29 98.0 16 98 11/14/20 15:37 Room Air I & O 11/15/20 11/15/20 11/16/20 15:00 23:00 07:00 Intake Total 840 ml 480 ml Balance 840 ml 480 ml Current Medications: I have reviewed the current psychotropics carefully including drug interactions. Risk benefit ratio favors no change other than as noted in my dictated progress note. Diagnosis: Problems: (1) Bipolar disorder, current episode mixed, severe, with psychotic features (2) Impulse control disorder (3) Anxiety disorder, unspecified (4) Schizoaffective disorder, bipolar type CLAUDIA ZAVALA MD Nov 16, 2020 21:05
[2020-11-16] MEDS: DIVALPROEX ER 500 MG TAB.ER.24H PO SCH (21:10)
[2020-11-16] MEDS: SIMVASTATIN 20 MG TABLET PO SCH (21:11)
[2020-11-16] MEDS: risperiDONE 1 MG TABLET. PO SCH (21:11)
[2020-11-16] MEDS: MIRTAZAPINE 15 MG TABLET PO SCH (21:11)
[2020-11-16] MEDS: traZODone 100 MG TABLET. PO SCH (21:12)
[2020-11-17 05:48] VITALS: BP 145/88
[2020-11-17] MEDS: LEVOTHYROXINE 25 MCG TABLET. PO SCH (05:48)
[2020-11-17] MEDS: buPROPion XL 300 MG TAB.ER.24H. PO SCH (08:25)
[2020-11-17] MEDS: CARVEDILOL 6.25 MG TABLET PO SCH (08:25)
[2020-11-17] MEDS: FINASTERIDE 5 MG TABLET. PO SCH (08:25)
[2020-11-17 08:26] VITALS: BP 145/88
[2020-11-17] MEDS: OXYBUTYNIN CHLORIDE 5 MG TABLET PO SCH (08:26)
[2020-11-17] MEDS: ASPIRIN ENTERIC COATED 81 MG TABLET.DR. PO SCH (08:26)
[2020-11-17] MEDS: CALCIUM CARB/VIT D3 500/200 TABLET PO SCH (08:26)
[2020-11-17] MEDS: LISINOPRIL 20 MG TABLET PO SCH (08:26)
[2020-11-17] MEDS: LACTULOSE 20 GM/30 ML SOLUTION. PO SCH (08:26)
[2020-11-17] MEDS: FAMOTIDINE 20 MG TABLET PO SCH (08:26)
[2020-11-17] MEDS: DICLOFENAC SODIUM 25 MG TABLET.DR PO SCH (08:28)
--- NOTE | 2020-11-17 09:09 | PDOC ---
Exam Note: Zackary Note: This note is a late entry for 11/16/2020 covers elements not covered in my initial note. Subjective: The patient was reviewed on telehealth rounds in the evening of 11/16/2020 with Tala DEAN. Discussed with nursing staff, reviewed the chart. He slept 5-3/4 hours previous night. Overall the patient is fairly cooperative, appropriate on the unit. Review of Systems: No CV, , pulmonary, eye system symptoms on review. Mental Status Exam: The patient is oriented to himself and situation. Speech has some latency, coherent. Abstraction is fair. Computation impaired. Language function is intact. Mood and affect is improved. No suicidal ideation. Laboratory Data: Reviewed. Impression: Bipolar 1 disorder mixed with psychotic features. History of schizoaffective disorder bipolar type. Anxiety disorder unspecified. Impulse control disorder unspecified. Plan: Continue psychotropics from initial note. Transition [facility] apart ment [facility] 11[facility] Assessment: Vital Signs/I&O: Vital Signs Date Time Temp Pulse Resp B/P (MAP) Pulse Ox O2 Delivery O2 Flow Rate FiO2 11/17/20 08:26 57 145/88 11/17/20 05:48 97.1 18 96 11/14/20 15:37 Room Air I & O 11/16/20 11/16/20 11/17/20 15:00 23:00 07:00 Intake Total 600 ml 480 ml Balance 600 ml 480 ml Current Medications: Meds: Current Medications Medications (Trade) Dose Ordered Sig/Andie Route PRN Reason Start Time Stop Time Status Last Admin Dose Admin Acetaminophen (Tylenol) 650 mg PRN Q6HRS PRN PO MILD PAIN / TEMP > 100.3'F 10/29/20 00:30 Multi-Ingredient Ointment (Analgesic [place]) 1 anabel PRN QID PRN TP MUSCLE PAIN 10/29/20 00:30 Al Hydroxide/Mg Hydroxide (Mylanta Plus Xs) 15 ml PRN AFTMEALHC PRN PO DYSPEPSIA 10/29/20 00:30 Magnesium Hydroxide (Milk Of Magnesia) 2,400 mg PRN QHS PRN PO 2ND CHOICE CONSTIPATION 10/29/20 00:30 11/14/20 17:47 Nicotine (Nicoderm Cq 7mg Patch) 1 patch DAILY TD 10/29/20 09:00 10/29/20 10:16 DC Bupropion HCl (Wellbutrin Xl) 300 mg DAILY PO 10/29/20 09:00 11/17/20 08:25 Divalproex Sodium (Depakote Er) 500 mg HS PO 10/29/20 21:00 10/29/20 02:41 DC Trazodone HCl (Desyrel) 300 mg HS PO 10/29/20 21:00 11/16/20 21:12 Olanzapine (ZyPREXA) 30 mg QHS PO 10/29/20 21:00 10/30/20 18:00 DC 10/29/20 20:05 Risperidone (RisperDAL) 3 mg HS PO 10/29/20 21:00 10/30/20 18:00 DC 10/29/20 20:04 Aspirin (Aspirin Enteric Coated) 81 mg DAILY PO 10/29/20 09:00 11/17/20 08:26 Calcium/Vitamin D (Oscal D 500mg/ 200uts) 1 tab DAILY PO 10/29/20 09:00 11/17/20 08:26 Carbamide Peroxide (Debrox) 2 drop DAILY AU 10/29/20 09:00 11/13/20 08:20 DC 11/12/20 07:56 Carvedilol (Coreg) 6.25 mg BIDWMEALS PO 10/29/20 08:00 11/17/20 08:25 Famotidine (Pepcid) 20 mg BID PO 10/29/20 09:00 11/17/20 08:26 Finasteride (Proscar) 5 mg DAILY PO 10/29/20 09:00 11/17/20 08:25 Levothyroxine Sodium (Synthroid) 25 mcg DAILY06 PO 10/29/20 06:00 11/17/20 05:48 Lisinopril (Prinivil) 20 mg DAILY PO 10/29/20 09:00 11/17/20 08:26 Simvastatin (Zocor) 20 mg HS PO 10/29/20 21:00 11/16/20 21:11 Tizanidine HCl (Zanaflex) 2 mg PRN TID PRN PO MUSCLE SPASTICITY 10/29/20 02:15 10/30/20 22:11 Diclofenac Sodium (Voltaren) 75 mg BID PO 10/29/20 09:00 11/17/20 08:28 Lactulose (Lactulose) 20 gm BID PO 10/29/20 09:00 11/17/20 08:26 Nicotine Polacrilex (Nicorette Gum) 2 mg PRN Q1HR PRN BC SMOKING CESSATION 10/29/20 02:30 11/05/20 04:28 Oxybutynin Chloride (Ditropan) 5 mg BID PO 10/29/20 09:00 11/17/20 08:26 Olanzapine (ZyPREXA ZYDIS) 2.5 mg PRN Q2HR PRN PO PSYCHOSIS 10/29/20 02:45 11/14/20 23:27 Divalproex Sodium (Depakote Er) 1,000 mg HS PO 10/29/20 21:00 11/16/20 21:10 Olanzapine (ZyPREXA) 20 mg QHS PO 10/30/20 21:00 11/04/20 18:01 DC 11/03/20 20:02 Risperidone (RisperDAL) 3.5 mg HS PO 10/30/20 21:00 11/16/20 21:11 Mirtazapine (Remeron) 7.5 mg QHS PO 11/02/20 21:00 11/09/20 17:41 DC 11/08/20 20:16 Olanzapine (ZyPREXA) 15 mg QHS PO 11/04/20 21:00 11/06/20 23:59 DC 11/06/20 20:08 Olanzapine (ZyPREXA) 10 mg QHS PO 11/07/20 21:00 11/09/20 23:59 DC 11/09/20 21:24 Olanzapine (ZyPREXA) 5 mg QHS PO 11/10/20 21:00 11/12/20 23:59 DC 11/12/20 19:58 Polyethylene Glycol (miraLAX) 17 gm PRN DAILY PRN PO 1ST CHOICE CONSTIPATION 11/05/20 14:00 Mirtazapine (Remeron) 15 mg QHS PO 11/09/20 21:00 11/16/20 21:11 Melatonin (Melatonin) 3 mg PRN QHS PRN PO INSOMNIA 11/13/20 19:30 11/14/20 21:08 I have reviewed the current psychotropics carefully including drug interactions. Risk benefit ratio favors no change other than as noted in my dictated progress note. Diagnosis: Problems: (1) Bipolar disorder, current episode mixed, severe, with psychotic features (2) Schizoaffective disorder, bipolar type (3) Anxiety disorder, unspecified (4) Impulse control disorder CLAUDIA ZAVALA MD Nov 17, 2020 09:09
--- NOTE | 2020-11-17 20:57 | PDOC ---
Exam Note: Zackary Note: Please also refer to the separate dictated note~for this date of service dictated separately.~Patient seen individually. Discussed the patient with Nursing staff reviewed the chart.~Reviewed interim history and current functioning. Reviewed vital signs,~Labs/ Radiology~and current medications noted below. Continue current treatment with the changes noted in the dictated addendum note Assessment: Vital Signs/I&O: Vital Signs Date Time Temp Pulse Resp B/P (MAP) Pulse Ox O2 Delivery O2 Flow Rate FiO2 11/17/20 08:26 57 145/88 11/17/20 05:48 97.1 18 96 11/14/20 15:37 Room Air I & O 11/16/20 11/16/20 11/17/20 15:00 23:00 07:00 Intake Total 600 ml 480 ml Balance 600 ml 480 ml Current Medications: Meds: Current Medications Medications (Trade) Dose Ordered Sig/Andie Route PRN Reason Start Time Stop Time Status Last Admin Dose Admin Acetaminophen (Tylenol) 650 mg PRN Q6HRS PRN PO MILD PAIN / TEMP > 100.3'F 10/29/20 00:30 11/17/20 11:06 DC Multi-Ingredient Ointment (Analgesic [place]) 1 anabel PRN QID PRN TP MUSCLE PAIN 10/29/20 00:30 11/17/20 11:06 DC Al Hydroxide/Mg Hydroxide (Mylanta Plus Xs) 15 ml PRN AFTMEALHC PRN PO DYSPEPSIA 10/29/20 00:30 11/17/20 11:06 DC Magnesium Hydroxide (Milk Of Magnesia) 2,400 mg PRN QHS PRN PO 2ND CHOICE CONSTIPATION 10/29/20 00:30 11/17/20 11:06 DC 11/14/20 17:47 Nicotine (Nicoderm Cq 7mg Patch) 1 patch DAILY TD 10/29/20 09:00 10/29/20 10:16 DC Bupropion HCl (Wellbutrin Xl) 300 mg DAILY PO 10/29/20 09:00 11/17/20 11:06 DC 11/17/20 08:25 Divalproex Sodium (Depakote Er) 500 mg HS PO 10/29/20 21:00 10/29/20 02:41 DC Trazodone HCl (Desyrel) 300 mg HS PO 10/29/20 21:00 11/17/20 11:06 DC 11/16/20 21:12 Olanzapine (ZyPREXA) 30 mg QHS PO 10/29/20 21:00 10/30/20 18:00 DC 10/29/20 20:05 Risperidone (RisperDAL) 3 mg HS PO 10/29/20 21:00 10/30/20 18:00 DC 10/29/20 20:04 Aspirin (Aspirin Enteric Coated) 81 mg DAILY PO 10/29/20 09:00 11/17/20 11:06 DC 11/17/20 08:26 Calcium/Vitamin D (Oscal D 500mg/ 200uts) 1 tab DAILY PO 10/29/20 09:00 11/17/20 11:06 DC 11/17/20 08:26 Carbamide Peroxide (Debrox) 2 drop DAILY AU 10/29/20 09:00 11/13/20 08:20 DC 11/12/20 07:56 Carvedilol (Coreg) 6.25 mg BIDWMEALS PO 10/29/20 08:00 11/17/20 11:06 DC 11/17/20 08:25 Famotidine (Pepcid) 20 mg BID PO 10/29/20 09:00 11/17/20 11:06 DC 11/17/20 08:26 Finasteride (Proscar) 5 mg DAILY PO 10/29/20 09:00 11/17/20 11:06 DC 11/17/20 08:25 Levothyroxine Sodium (Synthroid) 25 mcg DAILY06 PO 10/29/20 06:00 11/17/20 11:06 DC 11/17/20 05:48 Lisinopril (Prinivil) 20 mg DAILY PO 10/29/20 09:00 11/17/20 11:06 DC 11/17/20 08:26 Simvastatin (Zocor) 20 mg HS PO 10/29/20 21:00 11/17/20 11:06 DC 11/16/20 21:11 Tizanidine HCl (Zanaflex) 2 mg PRN TID PRN PO MUSCLE SPASTICITY 10/29/20 02:15 11/17/20 11:06 DC 10/30/20 22:11 Diclofenac Sodium (Voltaren) 75 mg BID PO 10/29/20 09:00 11/17/20 11:06 DC 11/17/20 08:28 Lactulose (Lactulose) 20 gm BID PO 10/29/20 09:00 11/17/20 11:06 DC 11/17/20 08:26 Nicotine Polacrilex (Nicorette Gum) 2 mg PRN Q1HR PRN BC SMOKING CESSATION 10/29/20 02:30 11/17/20 11:06 DC 11/05/20 04:28 Oxybutynin Chloride (Ditropan) 5 mg BID PO 10/29/20 09:00 11/17/20 11:06 DC 11/17/20 08:26 Olanzapine (ZyPREXA ZYDIS) 2.5 mg PRN Q2HR PRN PO PSYCHOSIS 10/29/20 02:45 11/17/20 11:06 DC 11/14/20 23:27 Divalproex Sodium (Depakote Er) 1,000 mg HS PO 10/29/20 21:00 11/17/20 11:06 DC 11/16/20 21:10 Olanzapine (ZyPREXA) 20 mg QHS PO 10/30/20 21:00 11/04/20 18:01 DC 11/03/20 20:02 Risperidone (RisperDAL) 3.5 mg HS PO 10/30/20 21:00 11/17/20 11:06 DC 11/16/20 21:11 Mirtazapine (Remeron) 7.5 mg QHS PO 11/02/20 21:00 11/09/20 17:41 DC 11/08/20 20:16 Olanzapine (ZyPREXA) 15 mg QHS PO 11/04/20 21:00 11/06/20 23:59 DC 11/06/20 20:08 Olanzapine (ZyPREXA) 10 mg QHS PO 11/07/20 21:00 11/09/20 23:59 DC 11/09/20 21:24 Olanzapine (ZyPREXA) 5 mg QHS PO 11/10/20 21:00 11/12/20 23:59 DC 11/12/20 19:58 Polyethylene Glycol (miraLAX) 17 gm PRN DAILY PRN PO 1ST CHOICE CONSTIPATION 11/05/20 14:00 11/17/20 11:06 DC Mirtazapine (Remeron) 15 mg QHS PO 11/09/20 21:00 11/17/20 11:06 DC 11/16/20 21:11 Melatonin (Melatonin) 3 mg PRN QHS PRN PO INSOMNIA 11/13/20 19:30 11/17/20 11:06 DC 11/14/20 21:08 I have reviewed the current psychotropics carefully including drug interactions. Risk benefit ratio favors no change other than as noted in my dictated progress note. Diagnosis: Problems: (1) Impulse control disorder (2) Anxiety disorder, unspecified (3) Bipolar disorder, current episode mixed, severe, with psychotic features (4) Schizoaffective disorder, bipolar type CLAUDIA ZAVALA MD Nov 17, 2020 20:57
--- NOTE | 2020-11-17 22:46 | DS ---
DATE OF DISCHARGE: 11/17/2020 DISCHARGE SUMMARY/PSYCHIATRIC PROGRESS NOTE This note covers the elements not covered in my initial note of 11/17/2020. REASON FOR ADMISSION: Please refer to the admission history for details. Briefly, the patient is a 70-year-old male referred to us from the Emergency Room at the [facility] after he presented from home coordinated by the [place] wind up worker who was concerned about the patient's safety. He was 3 hours early for his appointment, had increased confusion, flat affect and "odd behaviors". Reportedly, he had been taking his medications inappropriately and might have taken 2 days of medication by mistake. He took his household goods from his apartment and put them on his neighbor's porch. All of this behavior was quite unnatural for him. He appeared quite psychotic and potentially danger to himself since he lives alone, coordinated for inpatient psychiatric stabilization by the [facility] Social Service staff and Emergency Room staff. SIGNIFICANT FINDINGS AND CLINICAL COURSE: Following admission, the patient was seen daily individually by myself from a psychiatric standpoint. Medical followup with Dr. Salinas/Dr. Nair. The patient was observed baseline and then Depakote adjusted to reach a therapeutic level of 60 with the dosage of Depakote ER 1000 mg at bedtime. He is additionally on Wellbutrin 300 mg daily, Zyprexa 5 mg at bedtime, Risperdal 3.5 mg at bedtime, trazodone 300 mg at bedtime, Remeron 15 mg at bedtime, Zyprexa p.r.n., melatonin 3 mg at bedtime p.r.n. as an outpatient. It is recommended that once the patient has been stable for several weeks, olanzapine could be reduced down to 2.5 mg at bedtime for 2 weeks and stopped. Gradually, the patient's mood appeared to improve, psychotic symptoms subsided. He was much less confused. REVIEW OF SYSTEMS: Prior to discharge, on 11/17/2020, no CV, , pulmonary, eye, ENT system symptoms on review. MENTAL STATUS EXAM: Oriented to himself. Insight, judgment, recent memory has some impairment. Otherwise, insight, judgment is fair. Language function is intact. Mood and affect is improved. No suicidal or homicidal ideation. LABORATORY DATA: Reviewed. FINAL DIAGNOSES: Schizoaffective disorder, bipolar type, mixed with psychotic features, in partial remission; anxiety disorder, unspecified; impulse control disorder, unspecified. Rest unchanged from admission. DISCHARGE MEDICATIONS: Please refer to the MRAD. DISCHARGE INSTRUCTIONS: Outpatient psychiatric and medical followup at the [facility]. Time for discharge day management greater than 30 minutes. MAN Jc ZAVALA MD DR: JAC/emelia JOB#: [id number] / [id number]
== END 2020-11-17 10:45 | disposition home health service (06) | DRG 885 ==
LOC: GEROPSY 23:49
PROVIDERS: ADMIT Psychiatry & Neurology Psychiatry; ATTEND Psychiatry & Neurology Psychiatry
DX: F25.0 Schizoaffective disorder, bipolar type (principal); I11.0 Hypertensive heart disease with heart failure; D69.6 Thrombocytopenia, unspecified; E11.9 Type 2 diabetes mellitus without complications; E78.5 Hyperlipidemia, unspecified; E03.9 Hypothyroidism, unspecified; K21.9 Gastro-esophageal reflux disease without esophagitis; I50.9 Heart failure, unspecified; I25.10 Atherosclerotic heart disease of native coronary artery without angina pectoris; N40.0 Benign prostatic hyperplasia without lower urinary tract symptoms; J44.9 Chronic obstructive pulmonary disease, unspecified; F41.9 Anxiety disorder, unspecified; F63.9 Impulse disorder, unspecified; F12.10 Cannabis abuse, uncomplicated; G47.00 Insomnia, unspecified; M19.90 Unspecified osteoarthritis, unspecified site; Z98.41 Cataract extraction status, right eye; Z79.899 Other long term (current) drug therapy; Z98.42 Cataract extraction status, left eye; Z20.822 Contact with and (suspected) exposure to COVID-19
CPT/HCPCS: 36415; 71100; 72220; 80053; 80061; 80164; 81001; 82306; 82607; 82947; 83036; 83540; 83550; 83735; 84436; 84439; 84443; 84480; 85025; 85027; 85379; 86592; 93005; 99407; U0003; 97530